=== PATIENT | male | born 1940 | race Caucasian/White ===

== ENCOUNTER → 2023-10-23 06:09 | Day surgery (SDC) | payer OTHER, SELFPAY | LOC: GI 06:09 | PROVIDERS: ATTENDING PHYSICIAN Specialist | DX: Z12.11 Encounter for screening for malignant neoplasm of colon (principal); D12.3 Benign neoplasm of transverse colon; K57.30 Diverticulosis of large intestine without perforation or abscess without bleeding; K64.8 Other hemorrhoids; K29.50 Unspecified chronic gastritis without bleeding; K22.89 Other specified disease of esophagus; K29.40 Chronic atrophic gastritis without bleeding; K31.A0 Gastric intestinal metaplasia, unspecified; K31.89 Other diseases of stomach and duodenum; Z86.010 Personal history of colon polyps; Z87.19 Personal history of other diseases of the digestive system | CPT/HCPCS: 45385; 43239; 88305; 88341; 88342 ==

== ENCOUNTER → 2024-02-02 11:58 | Outpatient (REF) | payer OTHER, SELFPAY | LOC: HWRAD 11:58 | PROVIDERS: ATTENDING PHYSICIAN Nurse Practitioner Family | DX: R05.3 Chronic cough (principal) | CPT/HCPCS: 71046 ==

== ENCOUNTER → 2024-02-19 09:08 | Outpatient (REF) | payer OTHER, SELFPAY ==
[2024-02-19 09:35] VITALS: BP 177/86; BP_SYST 88
[2024-02-19 11:22] LABS: Body Fluid Glucose 90 mg/dl; Body Fluid LDH 317 U/L; Body Fluid Protein 4.6 g/dl
[2024-02-19 12:44] LABS: Body Fluid Mononuclear 98.8 %; Body Fluid Polymorphonuclear 1.2 %; Body Fluid WBC 9939 /CUMM
[2024-02-19 13:36] LABS: Body Fluid Second Tech BP
== END ==
LOC: RADI 09:08
PROVIDERS: ATTENDING PHYSICIAN Internal Medicine Critical Care Medicine; FAMILY PHYSICIAN Internal Medicine
DX: C90.00 Multiple myeloma not having achieved remission (principal); J91.0 Malignant pleural effusion
CPT/HCPCS: 88305; 32555; 71045; 82945; 83615; 84157; 87015; 87070; 87102; 87116; 87205; 87206; 88112; 89051

== ENCOUNTER → 2024-02-24 12:10 | Outpatient (REF) | payer OTHER, SELFPAY | LOC: HWRAD 12:10 | PROVIDERS: ATTENDING PHYSICIAN Internal Medicine Critical Care Medicine; FAMILY PHYSICIAN Internal Medicine | DX: J90 Pleural effusion, not elsewhere classified (principal) | CPT/HCPCS: 71046 ==

== ENCOUNTER → 2024-03-02 12:21 | Outpatient (REF) | payer OTHER, SELFPAY | LOC: HWRAD 12:21 | PROVIDERS: ATTENDING PHYSICIAN Internal Medicine Critical Care Medicine; FAMILY PHYSICIAN Internal Medicine | DX: C91.10 Chronic lymphocytic leukemia of B-cell type not having achieved remission (principal); Z98.890 Other specified postprocedural states; J90 Pleural effusion, not elsewhere classified | CPT/HCPCS: 71046 ==

== ENCOUNTER → 2024-03-23 09:25 | Outpatient (REF) | payer OTHER, SELFPAY | LOC: HWRAD 09:25 | PROVIDERS: ATTENDING PHYSICIAN Internal Medicine Hematology & Oncology; FAMILY PHYSICIAN Internal Medicine; REFERRING PHYSICIAN Internal Medicine Critical Care Medicine | DX: C91.10 Chronic lymphocytic leukemia of B-cell type not having achieved remission (principal); D51.0 Vitamin B12 deficiency anemia due to intrinsic factor deficiency | CPT/HCPCS: 71260; 74177; Q9967 ==

== ENCOUNTER → 2024-05-25 11:29 | Outpatient (REF) | payer OTHER, SELFPAY | LOC: HWRAD 11:29 | PROVIDERS: ATTENDING PHYSICIAN Nurse Practitioner Family | DX: Z87.09 Personal history of other diseases of the respiratory system (principal) | CPT/HCPCS: 71046 ==

== ENCOUNTER → 2024-05-26 12:30 | Outpatient (REF) | payer OTHER, SELFPAY ==
[2024-05-26 12:54] VITALS: BP 134/70; BP_SYST 116
[2024-05-26 14:04] VITALS: BP 136/65
== END ==
LOC: RADI 12:30
PROVIDERS: ATTENDING PHYSICIAN Internal Medicine Critical Care Medicine; FAMILY PHYSICIAN Internal Medicine
DX: J90 Pleural effusion, not elsewhere classified (principal)
CPT/HCPCS: 88305; 32555; 71045; 87015; 87070; 87102; 87116; 87205; 87206; 88112

== ENCOUNTER 2024-05-27 14:56 | Inpatient (IN) | payer OTHER, SELFPAY ==
[2024-05-27] VITALS (19 sets, daily range): BP systolic 89–172; BP diastolic 53–89; BMI 22.1; BMI 22.0
--- NOTE | 2024-05-27 11:28 | ED.GENMED ---
History of Present Illness
General
Chief Complaint: Breathing Problem
Source: patient
Exam Limitations: none
Time Seen by Provider: 05/27/24 09:51
Nursing documentation reviewed up to this point in time: agreed with
History of Present Illness
History of Present Illness:
Patient with history of CLL, currently receiving treatment via [facility], presents to ED secondary to continued shortness of breath with intermittent cough recently. Patient has similar episode in February 2024 when he received a
thoracentesis secondary to pleural effusion which revealed 'CLL cells', without any other abnormalities. At the recommendation of his primary care physician due to his ongoing symptoms, chest x-ray was performed yesterday which revealed a recurrent
large pleural effusion. Patient was evaluated by interventional radiologist yesterday where he received another thoracentesis. However, due to 'thickness of fluids', only small amount of fluid was able to be removed. Patient states that he has
not received any relief in terms of his shortness of breath. Denies fever or chills. Denies nausea, vomiting, or diarrhea. Denies leg pain or swelling. Denies back pain.
Review of Systems
Review of Systems
Allergies reviewed?: Yes
All Other Systems: ROS reviewed and negative except as documented in HPI and ROS
Constitutional: Reports no symptoms; Denies fever
EENT: Reports no symptoms
Respiratory: Reports cough and trouble breathing
Cardiac: Reports no symptoms; Denies chest pain
ABD/GI: Reports no symptoms
Musculoskeletal: Reports no symptoms
Skin: Reports no symptoms
Neurological: Reports no symptoms
Phy Exam
Physical Exam
Physical Exam:
Physical Exam
General: no apparent distress, not acutely ill. afebrile
Head: nc/at. eomi
Neck: supple. no meningeal signs.
Heart: s1/s2 regular rate and rhythm, no murmur. equal radial pulses.
Lungs: no acute respiratory distress. clear bilaterally, but diminished breath sound noted over left lower base
Abdomen: normal bowel sounds. not tender.
Neuro: alert and oriented. no focal neurological deficits
Skin: no rash
Psychiatric: well kept. interactive and cooperative
Extremities: no edema. no calf tenderness.
Scores
Heart Failure Risk
Heart Failure Risk Score: Not Applicable
Course
Orders/Labs/Results
Orders:
Orders
05/27/24 12:22
Complete Blood Count/With Diff Urgent
Comprehensive Metabolic Panel Urgent
05/27/24 14:28
Consult Interventional Radiology [IRAD CONSULT] Routine
Consulting Provider: Pancho Wright
Was physician already notified: Yes
Reason for Consult/Procedure: L chest tube insertion
Acknowledgement that appropriate orders are entered: Yes
05/27/24 14:30
Admit/Transfer Patient As Directed
Co-Sign Provider:
Level of Care: Inpatient admission
Assign to:: Medical/Surgical
Physician / Group: oliva renner
Diagnosis: Malignant L pleural effusion
Reason for Hospitalization: Malignant L pleural effusion
Expected length of stay greater than two midnights?: Yes
ELOS- Estimated Length of Stay in days: 2
I certify the patient meets the requirements for IP care: Yes
PULMONARY CONSULT Routine
Consulting Provider: Faiza León
Was physician already notified: Yes
PRN Pain Medication Management As Directed
May give lesser potent ordered pain med per pt: Yes
preference::
Protocol:: Medication orders for pain may be administered in a
manner that supports deferring to patient preference
when the pt is:
- Requesting an ordered lesser potent pain medication.
Least to most potent pain medications are defined
as: acetaminophen < NSAID < tramadol < opioids
(morphine, oxycodone, hydromorphone).
- Requesting a lesser dose of the same medication IF
ORDERED.
- Requesting a less intrusive route of administration
if both routes are prescribed by the provider (PO <
IV).
05/27/24 14:32
Code Status As Directed
Resuscitation Status: Full Code
05/27/24 Dinner
Regular
At Your Request: Full Participation
Does patient need a safe tray?: No
05/27/24 17:35
Acetaminophen [Tylenol] 650 mg PO Q4HPRN PRN
Bisacodyl [Dulcolax] 10 mg RECTAL [id number] PRN
Mag Hydrox/Al Hydrox/Simeth [Maalox] 30 ml PO Q6HPRN PRN
Oxycodone [Roxicodone] 5 mg PO Q4HPRN PRN
Polyethylene Glycol Powder [Miralax] 17 grams PO DAILYPRN PRN
05/27/24 17:35
ONCOLOGY CONSULT Routine
Consulting Provider: Buster Domingo
Was physician already notified: Yes
Activity As Directed
Activity Level: Ambulate
Vital Signs As Directed
Frequency: Per unit guidelines
DX Deep Vein Thrombosis Video Routine
05/27/24 18:00
Enoxaparin Sodium [Lovenox] 40 mg SC QPM
05/27/24 20:00
zanubrutinib [Brukinsa] 160 mg PO BID
05/27/24 22:00
Atorvastatin [Lipitor] 10 mg PO HS
Levothyroxine [Synthroid] 125 mcg PO HS
Metoprolol [Lopressor] 25 mg PO HS
Tamsulosin [Flomax] 0.4 mg PO HS
05/28/24 06:14
Basic Metabolic Panel IN AM
Complete Blood Count/No Diff IN AM
Ferritin IN AM
Iron IN AM
Total Iron Binding IN AM
Vitamin B12 IN AM
05/28/24 08:00
Azithromycin [Zithromax] 250 mg PO DAILY
Abnormal Lab Results
05/27/24
12:22
WBC 82.5 H* 10^3/uL
(4.8-10.8)
RBC 3.52 L 10^6/uL
(4.70-6.10)
Hgb 8.0 L g/dL
(13.0-18.0)
Hct 27.3 L %
(39.0-52.0)
MCV 77.6 L fL
(80.0-94.0)
MCH 22.7 L pg
(27.0-31.0)
MCHC 29.3 L g/dL
(33.0-37.0)
RDW 17.2 H %
(11.5-14.5)
Plt Count 408 H 10^3/uL
(130-400)
Abs Immat Gran (auto) 0.1 H 10^3/uL
(0-0.05)
Absolute Lymphs (auto) 76.1 H 10^3/uL
(1.2-3.4)
Absolute Monos (auto) 1.0 H 10^3/uL
(0.1-0.6)
Neutrophils % 6.1 L %
(42.2-75.2)
Lymphocytes % 92.3 H %
(20.5-51.1)
Monocytes % 1.2 L %
(1.7-9.3)
Sodium 132 L mmol/L
(135-145)
Chloride 93 L mmol/L
(98-107)
BUN 21 H mg/dl
(9-20)
05/27/24 12:22
05/27/24 12:22
Vital Signs
Initial and Last Documented VS:
Initial Vital Signs
Temp Pulse Resp BP Pulse Ox
98.9 F 96 22 172/78 96
05/27/24 09:25 05/27/24 09:25 05/27/24 09:25 05/27/24 09:25 05/27/24 09:25
Last Documented Vital Signs
Temp Pulse Resp BP Pulse Ox
98.7 F 96 16 127/74 95
05/28/24 07:05 05/28/24 07:05 05/28/24 07:05 05/28/24 07:05 05/28/24 07:05
MDM/Problems Addressed
MDM/Problems Addressed:
Discussed patient's presentation along with IRAD finding from yesterday discussed with oncall assistant center manager () - recommends admission for further treatment, likely requiring chest tube or other invasive treatment to treatment large pleural
effusion.
*Critical Care Note
Total Time (30-74mins, 75-104mins- exclusive of procedures): Not Applicable
ED Attending Note
-
Portions of this chart may have been created with voice recognition software.� Occasional wrong word or��sound alike� substitutions may have occurred due to the inherent limitations of voice recognition software.
Discharge Plan
Departure
Patient Disposition: Admit
Date of Disposition: 05/27/24
Time of Disposition: 14:14
Presentation/result/management discussed w/ accepting MD/DO: Hospitalist
Discharge Problem:
THOMAS (dyspnea on exertion), Pleural effusion
Interventions
Interventions:
*Risk Screen - Suicide Last Done: 05/27/24 09:25
*General Assessment Last Done: 05/27/24 09:25
*Neglect/Abuse Screening Last Done: 05/27/24 09:25
ED- Fall Risk Assessment Last Done: 05/27/24 09:50
*ED COVID-19 Vaccine History Last Done: 05/27/24 09:39
*Nursing Disposition Last Done: 05/27/24 14:54
ED- Cardiac Assessment Last Done: 05/27/24 09:50
ED- Pulmonary Assessment Last Done: 05/27/24 09:50
Discharge Date and Time
Discharge Date/Time: 05/27/24 14:54
[2024-05-27 12:56] LABS: Hematocrit 27.3 % (39.0-52.0); Mean Corp Hgb Conc. 29.3 g/dL (33.0-37.0); Mean Corpuscular Hgb 22.7 pg (27.0-31.0); Mean Corpuscular Volume 77.6 fL (80.0-94.0); Mean Platelet Volume 9.9 fL (7.4-10.4); Platelet Count 408 10^3/uL (130-400); Red Blood Cell Count 3.52 10^6/uL (4.70-6.10); Red Cell Dist. Width 17.2 % (11.5-14.5); White Blood Cell Count 82.5 10^3/uL (4.8-10.8)
[2024-05-27 13:02] LABS: ALT (SGPT) 26 U/L (0-50); AST (SGOT) 33 U/L (17-59); Alkaline Phosphatase 104 U/L (38-126); Blood Urea Nitrogen 21 mg/dl (9-20); Calcium 9.9 mg/dl (8.4-10.2); Carbon Dioxide 25 mmol/L (22-30); Chloride 93 mmol/L (98-107); Estimated Creatinine Clearance 72 ml/min; Glucose 99 mg/dl (70-99); Potassium 4.2 mmol/L (3.5-5.1); Sodium 132 mmol/L (135-145); Total Bilirubin 0.6 mg/dl (0.2-1.3); Total Protein 6.5 g/dl (6.3-8.2); eGFR > 60.00
--- NOTE | 2024-05-27 13:58 | HPS.HSE ---
Family Physician
-
Family Physician: Joe Oneill
Chief Complaint
-
Shortness of breath
History of Present Illness
83-year-old male with a past medical history of malignant left pleural effusion, chronic lymphocytic leukemia, restrictive lung disease, gastroesophageal reflux disease, Ordonez's esophagus, hiatal hernia, mitral valve prolapse, hypertension,
hyperlipidemia, and constipation presents with 1-2-week history of worsening shortness of breath due to his malignant left pleural effusion. Patient had an outpatient left thoracentesis 05/26/2024, draining 100 cc. Ultrasound shows that he has a
subacute to chronic hemothorax that is septated and requires a chest tube. Patient had a left thoracentesis on 02/19/2024 draining 1275 cc of fluid. He reports left-sided chest tightness, and coughing. He also is having fever. No vomiting, no
diarrhea. He has constipation. No black or bloody stools.
Medical History
Past Medical History
Past Medical History: Reports Other (Malignant left pleural effusion, chronic lymphocytic leukemia, cough variant asthma, restrictive lung disease, gastroesophageal reflux disease, Ordonez's esophagus, hiatal hernia, mitral valve prolapse,
hypertension, hyperlipidemia, constipation, vitamin B12 deficiency, diverticulosis,osteoarthritis)
Past Surgical History: Reports Other (Bilateral hip replacement, left shoulder replacement, hernia repair, hemorrhoid surgery, arthroscopic knee surgery, hemorrhoid surgery)
Social History
Tobacco: Non-smoker
Alcohol: Daily
Drug: None
Personal:
Living: With Family
Family History
Family History: Other (Mother had ovarian cancer, sibling has Parkinson's disease)
Allergies / Home Medications
Allergies reflects when Allergies were last updated in [facility].
Home Medications with original date entered in [facility]
Allergy/Medication List:
Allergies
Allergy/AdvReac Type Severity Reaction Status Date / Time
Sulfa (Sulfonamide Allergy Swelling Verified 05/27/24 09:29
Antibiotics)
sulfamethoxazole Allergy Swelling Verified 05/27/24 09:29
Home Medications Table - record
�Medication �Instructions �Recorded �Confirmed
atorvastatin 10 mg tablet 10 mg PO HS 05/27/21 05/27/24
levothyroxine 125 mcg tablet 125 mcg PO HS 05/27/21 05/27/24
omeprazole 20 mg delayed 20 mg PO HS 05/27/21 05/27/24
release,disintegrating tablet
tamsulosin 0.4 mg capsule 0.4 mg PO HS 05/27/21 05/27/24
zanubrutinib 80 mg capsule 160 mg PO BID 05/26/24 05/27/24
(Brukinsa)
azithromycin 250 mg tablet 0 mg PO .COMPLEX 05/27/24 05/27/24
(Zithromax Z-Dale)
metoprolol tartrate 25 mg tablet 25 mg PO HS 05/27/24 05/27/24
psyllium husk 0.4 gram capsule 0.4 g PO HSPRN PRN constipation 05/27/24 05/27/24
(Metamucil)
vitamins A,C,L-edbq-hdrqgl 4,296 1 cap PO HS 05/27/24 05/27/24
mcg-226 mg-90 mg capsule
(PreserVision AREDS)
Review of Systems
-
A 12 point ROS was completed and negative except as noted: Yes
Physical Exam
Vital Signs
Vital Signs
Temp Pulse Resp BP Pulse Ox
98.9 F 87 23 148/71 96
05/27/24 09:25 05/27/24 13:30 05/27/24 13:30 05/27/24 13:00 05/27/24 13:30
Physical Exam
General: Well Developed, Well Nourished and No Apparent Distress
HEENT: NormoCephalic, Anicteric and Moist mucous membranes
Respiratory: Other (Severely diminished breath sounds at the left lung base, right basilar crackles)
Cardiac: S1/S2
GI: Soft, Non Tender, Non Distended and Normal Bowel Sounds
Musculoskeletal: No Clubbing, No Cyanosis and No Edema
Laboratory Results
-
05/27/24 12:22
05/27/24 12:22
Laboratory Results
Total Bilirubin 0.6 mg/dl (0.2-1.3) 05/27/24 12:
AST 33 U/L (17-59) 05/27/24 12:22
ALT 26 U/L (0-50) 05/27/24 12:22
Alkaline Phosphatase 104 U/L (38-126) 05/27/24 12:22
Impression/Plan
-
HPI: 83-year-old male with a past medical history of malignant left pleural effusion, chronic lymphocytic leukemia, restrictive lung disease, gastroesophageal reflux disease, Ordonez's esophagus, hiatal hernia, mitral valve prolapse, hypertension,
hyperlipidemia, and constipation presents with 1-2-week history of worsening shortness of breath due to his malignant left pleural effusion. Patient had an outpatient left thoracentesis 05/26/2024, draining 100 cc. Ultrasound shows that he has a
subacute to chronic hemothorax that is septated and requires a chest tube. Patient had a left thoracentesis on 02/19/2024 draining 1275 cc of fluid. He reports left-sided chest tightness, and coughing. He also is having fever. No vomiting, no
diarrhea. He has constipation. No black or bloody stools.
#Malignant left pleural effusion
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
02/19/2024�left thoracentesis 1275 cc drained
05/26/24-left thoracentesis 100 cc drained
Consult pulmonology, consult IR for chest tube insertion
#Chronic lymphocytic leukemia
Consult oncology
Continue Brukinsa
#Reported fever at home
He has 2 days left of azithromycin
Trend white count and fever curve
#Microcytic anemia
Check iron studies, B12/folate
Trend hemoglobin
#Hypothyroidism
Continue levothyroxine
#Constipation
Continue Metamucil, added MiraLAX as needed
#GERD
#Hiatal hernia
Continue PPI
#BPH
Continue Flomax
DVT prophylaxis�subcu Lovenox
Full code
Total time spent to see the patient on the floor, examine the patient, review data and lab results, discuss treatment plan with patient, nursing staff around 79 minutes.
[2024-05-27 14:23] LABS: % Basophils 0.1 % (0-2); % Eosinophils 0.1 % (0-6); % Immature Granulocytes 0.2 % (0-0.5); % Lymphocytes 92.3 % (20.5-51.1); % Monocytes 1.2 % (1.7-9.3); % Neutrophils 6.1 % (42.2-75.2); Absolute Basophils 0.1 10^3/uL (0-0.2); Absolute Eosinophils 0.1 10^3/uL (0-0.7); Absolute Immature Granulocytes 0.1 10^3/uL (0-0.05); Absolute Lymphocytes 76.1 10^3/uL (1.2-3.4); Absolute Neutrophils 5.1 10^3/uL (1.4-6.5); Nucleated Red Blood Cells % 0 % (-)
--- NOTE | 2024-05-27 15:27 | CON.PUL ---
Consultation
Consultation Request
Date/Time Consultation Requested: 05/27/24
Date/Time Consultation Performed: 05/27/24
Performing Provider: Romelia
Reason for Consultation: Effusion
Medical History
-
History of Present Illness:
Patient is a 83-year-old male with a past medical history of CLL, chronic malignant left-sided pleural effusion, restrictive lung disease, GERD/Ordonez's esophagus, hypertension, hyperlipidemia, presenting with 1-2 week history of worsening
shortness of breath due to his malignant left pleural effusion. Patient had an outpatient left thoracentesis 05/26/2024, and drained 100 cc that was thick and bloody, difficult to extract. Ultrasound showing subacute to chronic hemothorax that is
septated and requires a chest tube. Patient had a left thoracentesis on 02/19/2024 which drained 1275 cc of fluid, this was positive for CLL. He reports left-sided chest tightness, cough, fever. Admitted to 05/27/24.
Past Medical History
Past Medical History: Other (see list below)
Social History
Tobacco: Non-smoker
Alcohol: None
Drug: None
Family History
Family History: Reviewed & Not Pertinent
Allergies / Home Medications
Allergies
Allergy/AdvReac Type Severity Reaction Status Date / Time
Sulfa (Sulfonamide Allergy Swelling Verified 05/27/24 09:29
Antibiotics)
sulfamethoxazole Allergy Swelling Verified 05/27/24 09:29
Home Medications
�Medication �Instructions �Recorded �Confirmed �Last Taken �Type
atorvastatin 10 mg tablet 10 mg PO 05/27/21 05/27/24 05/26/24 History
levothyroxine 125 mcg tablet 125 mcg PO 05/27/21 05/27/24 05/26/24 History
omeprazole 20 mg delayed 20 mg PO 05/27/21 05/27/24 05/26/24 History
release,disintegrating tablet
tamsulosin 0.4 mg capsule 0.4 mg PO 05/27/21 05/27/24 05/26/24 History
zanubrutinib 80 mg capsule 160 mg PO BID 05/26/24 05/27/24 05/27/24 History
(Brukinsa)
azithromycin 250 mg tablet 0 mg PO .COMPLEX 05/27/24 05/27/24 05/27/24 History
(Zithromax Z-Dale)
metoprolol tartrate 25 mg tablet 25 mg PO HS 05/27/24 05/27/24 05/26/24 History
psyllium husk 0.4 gram capsule 0.4 g PO HSPRN PRN constipation 05/27/24 05/27/24 Unknown History
(Metamucil)
vitamins A,C,Y-qtlm-tejnfk 4,296 1 cap PO HS 05/27/24 05/27/24 05/26/24 History
mcg-226 mg-90 mg capsule
(PreserVision AREDS)
Review of Systems
-
History Source: Patient and Physician
Vitals / Labs / Diagnostic Testing
Vital Signs
Temp Pulse Resp BP Pulse Ox
98.1 F 92 22 138/89 97
05/27/24 15:05 05/27/24 15:05 05/27/24 15:05 05/27/24 15:05 05/27/24 15:05
Lab Data
05/27/24 12:22
05/27/24 12:22
Diagnostic Testing:
Physical Exam
-
HEENT: Normocephalic, Anicteric and Moist Mucous Membranes
Cardiovascular: S1/S2 and Regular Rhythm
Respiratory: Clear, Non-Labored Respirations and Other (chest tube in place)
GI: Soft and Non Distended
Neurology: Awake, Alert, Oriented, AO x 3 and No Motor Deficits
Skin: Warm, Dry and Good Color
General: Comfortable and Other (NAD)
Assessment
-
Patient is a 83-year-old male with a past medical history of CLL, chronic malignant left-sided pleural effusion, restrictive lung disease, GERD/Ordonez's esophagus, hypertension, hyperlipidemia, presenting with 1-2 week history of worsening
shortness of breath due to his malignant left pleural effusion. Patient had an outpatient left thoracentesis 05/26/2024, and drained 100 cc that was thick and bloody, difficult to extract. Ultrasound showing subacute to chronic hemothorax that is
septated and requires a chest tube. We are consulted for eval.
L sided pleural effusion s/p successful ultrasound-guided LEFT thoracentesis, yielding 100 mL of sanguinous pleural fluid 05/26/24
s/p chest tube placement by IR with lytic therapy 05/27/24
Hemorrhagic effusion
Acute blood loss anemia from above
SOB
Conditions present prior to admission
Chronic left-sided malignant pleural effusion s/p thora + cyto 02/2024
Chronic cough, cough variant asthma
Follows Dr. Rhodes
Allergic rhinitis, IgE 329/skin testing+grass
Restrictive lung disease
GERD
Diastolic dysfunction
MVP
Hypertension
Hypothyroidism
CLL
Plan
No oxygen was needed on admission, currently saturating 97% on RA
Prior history of lung disease is noted including chronic left sided malignant effusion
s/p thora in February with confirmed cyto for CLL, consistent with his history
s/p thora 05/26 which was thick/bloody, only 100mL extracted
now s/p chest tube placement by IR 05/27/24, (40cc extracted) -- will send fluid studies to r/o infection
Ok to try lytic therapy as well, discussed case with IR
Hb drop from 13 to 8
Observe CBC for anemia, repeat testing later this PM, transfuse if needed
If not improving, may need CTS opinion on options
Most surgical options will be high risk
I discussed this all with patient
CXR/CT obtained indicating chronic L sided effusion
Other imaging reviewed--CT CHEST 03/2024 with complex effusion
Will repeat imaging while inpatient post chest tube insertion to evaluate lung tissue upon drainage
RLD noted, on PFTs
Likely from pleural disease
IS, PT/OT
Prior ECHO results are reviewed indicating stable function
MVP noted with mild MR
Will need outpatient pulmonary evaluation in our office for PFTs and 6MWT
Follows Dr Rhodes
We will follow
Diagnostic Data
Chest X-Ray: 05/26/24- No pneumothorax, post left thoracentesis.
05/25/24- Moderate to large left pleural effusion, significantly increased.
CT Scan: CAP 03/23/24- 1. Small to moderate left pleural effusion with associated mild compressive left lower lobe atelectasis.
2. Pleural-based consolidation in the lingula anteriorly. This likely represents rounded atelectasis, less likely pleural metastatic disease. Recommend attention on follow-up exams.
3. Small right middle lobe perifissural nodule measuring 5 mm, likely benign. Recommend attention on follow-up exams. Of note this nodule is below PET imaging resolution.
4. Mildly enlarged bilateral axillary lymph nodes may reflect lymphoma.
5. Small 0.8 cm nodule within the right anterior subdiaphragmatic region, favored benign. Recommend attention on follow-up exams.
6. Hypoattenuating lesions within the proximal aspects of the bilateral inguinal canals as described. Differential includes spermatic cord hydrocele/cysts, ectopic testes, or necrotic lymph nodes. Consider initial further workup with dedicated
bilateral inguinal/scrotal ultrasound.
6. Otherwise, no convincing evidence for additional metastatic disease in the chest, abdomen or pelvis.
Echo: 03/14/20- 1. Normal left ventricular size and systolic function, ejection fraction 60-65%
2. Mild mitral regurgitation with normal left atrium
3. Normal aortic valve
4. Normal right heart with normal pulmonary artery pressure.
In 2014, there was mild posterior leaflet prolapse and mild LVH. The patient will be called and told that the study is stable with normal heart muscle function and no significant valvular abnormality.
PFT's:
Reports and relevant images were personally reviewed.
Total time spent on this consultation __85__ includes review of history, physical exam, medications, laboratory data, personal review of imaging, extensive review of outpatient records, discussion with care team and respiratory therapy.
--- NOTE | 2024-05-27 16:57 | PN.IRAD.UPD ---
Update Note - IRAD
- -
INSTILLED TPA/DORNASE INTO LEFT SIDED CHEST TUBE AT 1650 POST TUBE INSERTION IN DEPARTMENT. INSTRUCTED PATIENT TO CHANGE POSITIONS EVERY THIRTY MINUTES TO EVENLY DISTRUBUTE MEDS. TUBE CAN BE UNCLAMPED AND PUT BACK TO SUCTION IN TWO HOURS, AT 1850.
NO COMPLAINTS FROM PATIENT
[2024-05-27 17:15] LABS: Body Fluid WBC 30120 /CUMM
[2024-05-27 17:16] LABS: Body Fluid Mononuclear 79.8 %; Body Fluid Polymorphonuclear 20.2 %
[2024-05-27 17:20] LABS: Body Fluid Hematocrit 23.3 %
[2024-05-27 17:32] LABS: Body Fluid Second Tech LD
[2024-05-27] MEDS: LOVENOX 40 MG SC (18:32)
--- NOTE | 2024-05-27 19:11 | PTCARENOTE ---
Addendum entered by John Rahman RN 05/27/24 19:12:
1900 Chest tube unclamped.
Original Note:
10100 Chest tube unclamped per order Draining bloody drainage. No distress noted.
[2024-05-27 20:11] LABS: Hematocrit 26.2 % (39.0-52.0); Hemoglobin 8.1 g/dL (13.0-18.0); Mean Corp Hgb Conc. 30.9 g/dL (33.0-37.0); Mean Corpuscular Hgb 24.1 pg (27.0-31.0); Mean Platelet Volume 9.9 fL (7.4-10.4); Platelet Count 346 10^3/uL (130-400); Red Blood Cell Count 3.36 10^6/uL (4.70-6.10); Red Cell Dist. Width 16.9 % (11.5-14.5); White Blood Cell Count 66.5 10^3/uL (4.8-10.8)
[2024-05-27] MEDS: TYLENOL 650 MG PO (21:45)
[2024-05-27] MEDS: FLOMAX 0.4 MG PO (21:46)
[2024-05-27] MEDS: SYNTHROID 125 MCG PO (21:47)
[2024-05-27] MEDS: PROTONIX 40 MG PO (21:47)
[2024-05-27] MEDS: OCUVITE SOFTGEL 1 CAP PO (21:47)
[2024-05-27] MEDS: LOPRESSOR 25 MG PO (21:49)
[2024-05-27] MEDS: LIPITOR 10 MG PO (21:49)
[2024-05-27] MEDS: ULTRAM 25 MG PO (23:25)
[2024-05-28] VITALS (11 sets, daily range): BP systolic 103–153; BP diastolic 22–77; PULSE 66–92
[2024-05-28] MEDS: ZITHROMAX 250 MG PO (08:11)
[2024-05-28 08:33] LABS: Hematocrit 24.8 % (39.0-52.0); Hemoglobin 7.4 g/dL (13.0-18.0); Mean Corp Hgb Conc. 29.8 g/dL (33.0-37.0); Mean Platelet Volume 9.9 fL (7.4-10.4); Platelet Count 365 10^3/uL (130-400); Red Blood Cell Count 3.22 10^6/uL (4.70-6.10); Red Cell Dist. Width 17.1 % (11.5-14.5); White Blood Cell Count 66.1 10^3/uL (4.8-10.8)
[2024-05-28 09:05] LABS: Blood Urea Nitrogen 18 mg/dl (9-20); Calcium 9.7 mg/dl (8.4-10.2); Carbon Dioxide 26 mmol/L (22-30); Chloride 95 mmol/L (98-107); Estimated Creatinine Clearance 79 ml/min; Glucose 90 mg/dl (70-99); Potassium 4.7 mmol/L (3.5-5.1); Sodium 133 mmol/L (135-145); eGFR > 60.00
[2024-05-28 09:15] LABS: Total Iron Binding Capacity 210 ug/dl (261-462)
--- NOTE | 2024-05-28 09:17 | W.PN.HOSP.TC ---
Today's Communication/Plan
-
see bold
Assessment / Plan
Assessment / Plan
HPI: 83-year-old male with a past medical history of malignant left pleural effusion, chronic lymphocytic leukemia, restrictive lung disease, gastroesophageal reflux disease, Ordonez's esophagus, hiatal hernia, mitral valve prolapse, hypertension,
hyperlipidemia, and constipation presents with 1-2-week history of worsening shortness of breath due to his malignant left pleural effusion. Patient had an outpatient left thoracentesis 05/26/2024, draining 100 cc. Ultrasound shows that he has a
subacute to chronic hemothorax that is septated and requires a chest tube. Patient had a left thoracentesis on 02/19/2024 draining 1275 cc of fluid. He reports left-sided chest tightness, and coughing. He also is having fever. No vomiting, no
diarrhea. He has constipation. No black or bloody stools.
#Malignant loculated left pleural effusion
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
Follows with Dr. Rhodes
02/19/2024�left thoracentesis 1275 cc drained
05/26/24-left thoracentesis 100 cc drained
Left chest tube inserted 05/27 by IR
Appreciate pulmonology input, continue chest tube management as per pulmonology and IR
#Chronic lymphocytic leukemia
Oncology consulted, patient follows with Dr. Herrera
Stopped Brukinsa
#Reported fever at home
He has 1 day left of azithromycin
Trend white count and fever curve
#Iron deficiency anemia
#Suspected subacute blood loss in left hemothorax
#Dizziness with standing
Hemoglobin 7.4 today, was 8 upon admission, was 13.4 May 2021
Transfuse 1 unit packed red blood cells today
#Vitamin B12 deficiency
Give IM and start p.o.
#Hypothyroidism
Continue levothyroxine
#Constipation
Continue Metamucil, added MiraLAX as needed
#GERD
#Hiatal hernia
Continue PPI
#BPH
Continue Flomax
DVT prophylaxis�subcu Lovenox
Full code
Updated at bedside 05/28
Total time spent to see the patient on the floor, examine the patient, review data and lab results, discuss treatment plan with patient, nursing staff around 51 minutes.
Physical Exam
General: No acute distress
HEENT: Normocephalic, Atraumatic, EOMI, MMM
Respiratory: Diminished breath sounds at the left lung base, right basilar crackles
Left chest tube in place
Cardiac: Normal S1/S2, Regular Rate and Rhythm
GI: Soft, Nontender, Nondistended, Normal Bowel Sounds
Extremities: No Clubbing, Cyanosis, or Edema
Neuro: Nonfocal/Grossly Intact
Psych: Calm, Cooperative
Anticipated Discharge: > 48 hours
Subjective/Interval History
-
Date of Service: May 28, 2024
Patient reports dizziness and nausea with standing. Shortness of breath improved. Fever, no vomiting.
Objective Data
-
Labs:
Laboratory Results
05/28/24
06:14
WBC 66.1 H*
Hgb 7.4 L
Hct 24.8 L
Plt Count 365
Sodium 133 L
Potassium 4.7
Chloride 95 L
Carbon Dioxide 26
BUN 18
Creatinine 0.7
Glucose 90
Calcium 9.7
Vital Signs:
Vital Signs
Temp Pulse Resp BP Pulse Ox
98.7 F 96 16 127/74 95
05/28/24 07:05 05/28/24 07:05 05/28/24 07:05 05/28/24 07:05 05/28/24 07:05
I&O
05/27/24 05/28/24 05/29/24
06:59 06:59 06:59
Intake Total 220 / 220
Output Total 750 / 750
Balance -530 / -530
[2024-05-28 09:40] LABS: Iron < 20 ug/dl (49-181)
[2024-05-28 09:44] LABS: Vitamin B12 180 pg/ml (239-931)
--- NOTE | 2024-05-28 13:20 | W.PN.PUL3 ---
Today's Communication / Plan
-
Continue with negative suction at -20 cmH2O
CXR in the morning and may need CT chest without contrast versus CTA chest depending on CXR findings and Hb stability
Patient received 1 unit PRBC today � follow-up repeat CBC tonight to assess for appropriate rise in Hb
Pain control
Goal SpO2 >90-94%
Follow-up pleural fluid cultures + cytopathology
Assessment
-
Patient is a 83-year-old male with a past medical history of CLL, chronic malignant left-sided pleural effusion, restrictive lung disease, GERD/Ordonez's esophagus, hypertension, hyperlipidemia, presenting with 1-2 week history of worsening
shortness of breath due to his malignant left pleural effusion. Patient had an outpatient left thoracentesis 05/26/2024, and drained 100 cc that was thick and bloody, difficult to extract. Ultrasound showing subacute to chronic hemothorax that is
septated and requires a chest tube. We are consulted for eval.
Impression:
L sided pleural effusion s/p successful ultrasound-guided LEFT thoracentesis, yielding 100 mL of sanguinous pleural fluid 05/26/24
s/p chest tube placement by IR with lytic therapy 05/27/24
Hemorrhagic effusion (?due to first thoracentesis with vessel hit, as effusion became bloody after 1st thora on 05/26/2024)
Acute blood loss anemia from above
SOB
Conditions present prior to admission
Chronic left-sided malignant pleural effusion s/p thora + cyto (+) on 02/19/2024
Chronic cough, cough variant asthma
Follows Dr. Rhodes
Post-nasal drip
Allergic rhinitis, IgE 329/skin testing+grass
Restrictive lung disease
GERD
Diastolic dysfunction
MVP
Hypertension
Hypothyroidism
CLL
Plan
No oxygen was needed on admission, currently saturating 96% on RA
Prior history of lung disease is noted including chronic left sided malignant effusion
s/p thora in February with confirmed cyto for CLL, consistent with his history
s/p thora 05/26 which was thick/bloody, only 100mL extracted
now s/p chest tube placement by IR 05/27/24, (40cc extracted) - fluid studies sent for cultures + cytopathology
- Fluid from chest tube is very high in WBC with 30,120, which is monocyte predominant and consistent with hemothorax given hematocrit is 23.3%
Ok to try lytic therapy as well, discussed case with IR
Hb drop from 13 to 8
Observe CBC for anemia --> he was TRX 1 U PRBC today --> repeat CBC to assess for appropriate rise in Hb
If not improving, may need CTS opinion on options
Most surgical options will be high risk
I discussed this all with patient
CXR/CT obtained indicating chronic L sided effusion
Other imaging reviewed--CT CHEST 03/2024 with complex effusion
Will repeat imaging while inpatient post chest tube insertion to evaluate lung tissue upon drainage
- Will start with CXR tomorrow AM; depending on results he may need Chest CT to assess if loculated effusions have all been drained, and he may need CTA chest to assess if active bleed if Hb continues to be unstable
- If concern for active bleed persists then consult CT surgery
RLD noted, on PFTs
Likely from pleural disease
IS, PT/OT
Prior ECHO results are reviewed indicating stable function
MVP noted with mild MR
Will need outpatient pulmonary evaluation in our office for PFTs and 6MWT
Follows Dr Rhodes
We will follow
Diagnostic Data
Chest X-Ray: 05/26/24- No pneumothorax, post left thoracentesis.
05/25/24- Moderate to large left pleural effusion, significantly increased.
CT Scan: CAP 03/23/24- 1. Small to moderate left pleural effusion with associated mild compressive left lower lobe atelectasis.
2. Pleural-based consolidation in the lingula anteriorly. This likely represents rounded atelectasis, less likely pleural metastatic disease. Recommend attention on follow-up exams.
3. Small right middle lobe perifissural nodule measuring 5 mm, likely benign. Recommend attention on follow-up exams. Of note this nodule is below PET imaging resolution.
4. Mildly enlarged bilateral axillary lymph nodes may reflect lymphoma.
5. Small 0.8 cm nodule within the right anterior subdiaphragmatic region, favored benign. Recommend attention on follow-up exams.
6. Hypoattenuating lesions within the proximal aspects of the bilateral inguinal canals as described. Differential includes spermatic cord hydrocele/cysts, ectopic testes, or necrotic lymph nodes. Consider initial further workup with dedicated
bilateral inguinal/scrotal ultrasound.
6. Otherwise, no convincing evidence for additional metastatic disease in the chest, abdomen or pelvis.
Echo: 03/14/20- 1. Normal left ventricular size and systolic function, ejection fraction 60-65%
2. Mild mitral regurgitation with normal left atrium
3. Normal aortic valve
4. Normal right heart with normal pulmonary artery pressure.
In 2014, there was mild posterior leaflet prolapse and mild LVH. The patient will be called and told that the study is stable with normal heart muscle function and no significant valvular abnormality.
Reports and relevant images were personally reviewed.
Total time spent today was 35 minutes for this encounter. Time includes reviewing laboratory test/imaging results, reviewing pertinent medical records, obtaining and reviewing medical history, performing an appropriate exam, ordering medications,
tests and procedures. Time also includes documentation of this encounter, coordinating patient care and communicating with other healthcare professionals. Total time does not include separately billed tests performed on this date of service.
Subjective Data
-
Date of Service:
Date of Service: May 28, 2024
Chief Complaint: Pulmonary Follow Up
Subjective:
Patient seen and evaluated today at bedside. He feels well, however still feels short of breath which improved after blood transfusion earlier this afternoon. Chest tube has not been draining well today, with 150 cc output the last 24 hours. No
airleak seen in Pleur-evac. Currently on room air breathing comfortably. He has a slight cough with clear phlegm. He denies chest pain, OROZCO, abdominal pain, nausea, fevers or chills.
Review of Systems
General: Other (Negative unless mentioned above)
Objective Data
Data Reviewed
Vital Signs / I&O / Oxygen:
Vital Signs
Temp Pulse Resp BP Pulse Ox
98.7 F 96 16 127/74 95
05/28/24 07:05 05/28/24 07:05 05/28/24 07:05 05/28/24 07:05 05/28/24 07:05
Intake and Output
05/27/24 05/28/24 05/29/24
06:59 06:59 06:59
Intake Total 220 / 220
Output Total 750 / 750
Balance -530 / -530
SaO2 95
Physical Exam
General: Respiratory Distress (negative) and Comfortable
HEENT: Normocephalic and Anicteric
Cardiovascular: S1-S2 and Peripheral Edema (negative)
Respiratory: Wheeze (negative), Rhonchi (negative), Non-Labored Respirations, Chest Tube (left hemithorax), Other (Diminished breath sounds at left hemithorax at base to middle lung field) and Other (Coarse breath sounds heard bilaterally)
GI: Soft, Non Distended, Non Tender and Normal Bowel Sounds
Neurology: AO x 3 and Tremors (negative)
Skin: Warm, Dry and Jaundice (negative)
Labs/Micro/Reports
Lab Data
05/28/24 06:14
05/28/24 06:14
Microbiology
05/27/24 16:23 Pleural Fluid Gram Stain - Preliminary
--- NOTE | 2024-05-28 16:16 | PTCARENOTE ---
PT told me he was dizzy over night while oob. I did do orthostatic BP, please refer to vitals section for the numbers. PT did go from SBP 129 to 104 associated with dizziness, nausea and needed to sit back down. HG came back to 7.[address] output from last shift 1000 ml. MD was made aware and one unit of PRBC were ordered and given. Post transfusion orthos were fine SBP 130s lying sitting standing.
--- NOTE | 2024-05-28 16:34 | PTCARENOTE ---
When patient sits up and stands up he does alot of coughing. So far this shift he only got out 10 ml of bloody drainage via ct scan
[2024-05-28] MEDS: CYANOCOBALAMIN 1000 MCG IM (17:13)
[2024-05-28] MEDS: LOVENOX 40 MG SC (17:13)
[2024-05-28] MEDS: OCUVITE SOFTGEL 1 CAP PO (20:59)
[2024-05-28] MEDS: BENADRYL 25 MG PO (20:59)
[2024-05-28] MEDS: LOPRESSOR 25 MG PO (21:00)
[2024-05-28] MEDS: TYLENOL 650 MG PO (21:00)
[2024-05-28] MEDS: FLOMAX 0.4 MG PO (21:00)
[2024-05-28] MEDS: LIPITOR 10 MG PO (21:00)
[2024-05-28] MEDS: SYNTHROID 125 MCG PO (21:01)
[2024-05-28] MEDS: PROTONIX 40 MG PO (21:07)
[2024-05-28 22:23] LABS: Hematocrit 24.6 % (39.0-52.0); Hemoglobin 7.7 g/dL (13.0-18.0); Mean Corp Hgb Conc. 31.3 g/dL (33.0-37.0); Mean Corpuscular Hgb 23.3 pg (27.0-31.0); Mean Corpuscular Volume 74.3 fL (80.0-94.0); Mean Platelet Volume 10.2 fL (7.4-10.4); Platelet Count 350 10^3/uL (130-400); Red Blood Cell Count 3.31 10^6/uL (4.70-6.10); Red Cell Dist. Width 16.9 % (11.5-14.5); White Blood Cell Count 69.5 10^3/uL (4.8-10.8)
--- NOTE | 2024-05-28 23:19 | CON.ONC ---
Impression
Impression
With lymphocyte doubling in the past 4 years he remained asymptomatic and w/o significant signs of progression given absence of 'B' symptoms or overtly palpable adenopathy or splenomegaly. Effusions observed as bloody occur @ all stage of CLL and
do not indicated absolute proof of progression/ transformation of disease. FOr discussion with pulmonary /thoraceic surgery for pleurodesis vs pleural tube drainage
Plan
Plan
FOllw counts and recommemdations by CT surgery/ pulmonary
Patient History
History of Present Illness
Fit 83yo WM admitted for therapeutic lysis of adhesion of associated left pleural hemorrhagic effusion. He was first diagnosed with effusion January 2024 following imaging of same in workup of cough. 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
stage 0 CLL diagnosed in w/u of asymptomatic lymphocytosis treated with observation until aforementioned abnormalities evolved. Treatment with BKI therapy intiated 2 months ago with pt stopping same when bloody effusion first noted with initial
thoracentesis in February.
Past-Medical/Surgical History
HYTN/hypothyroid/GERD/BPH
Patient Medication
�Medication �Instructions �Recorded �Confirmed �Last Taken �Type
atorvastatin 10 mg tablet 10 mg PO HS High Cholesterol 05/27/21 05/27/24 05/26/24 History
levothyroxine 125 mcg tablet 125 mcg PO HS Thyroid 05/27/21 05/27/24 05/26/24 History
omeprazole 20 mg delayed 20 mg PO HS Gastrointestinal Issue 05/27/21 05/27/24 05/26/24 History
release,disintegrating tablet
tamsulosin 0.4 mg capsule 0.4 mg PO HS Urinary Issue 05/27/21 05/27/24 05/26/24 History
zanubrutinib 80 mg capsule 160 mg PO BID leukemia 05/26/24 05/27/24 05/27/24 History
(Brukinsa)
azithromycin 250 mg tablet 0 mg PO .COMPLEX Infection 05/27/24 05/27/24 05/27/24 History
(Zithromax Z-Dale)
metoprolol tartrate 25 mg tablet 25 mg PO HS Blood Pressure 05/27/24 05/27/24 05/26/24 History
psyllium husk 0.4 gram capsule 0.4 g PO HSPRN PRN constipation 05/27/24 05/27/24 Unknown History
(Metamucil)
vitamins A,C,D-lnek-lybcrd 4,296 1 cap PO HS Supplement 05/27/24 05/27/24 05/26/24 History
mcg-226 mg-90 mg capsule
(PreserVision AREDS)
diphenhydramine 25 1 tab PO HS PRN sleep 05/28/24 05/28/24 05/25/24 History
mg-acetaminophen 500 mg tablet
(Tylenol PM Extra Strength)
Active Medications
Generic Name Dose Route Start Last Admin
Trade Name Freq PRN Reason Stop Dose Admin
Acetaminophen 650 mg 05/27/24 17:35 05/28/24 21:00
Acetaminophen 325 Mg Tablet PO 06/24/24 17:34 650 mg
Q4HPRN PRN Administration
mild pain/OROZCO/temp> 100.4F
Al Hydrox/Mg Hydrox/Simethicone 30 ml 05/27/24 17:35
Mag/Al/Simethicone Suspension 30 Ml Cup PO 06/24/24 17:34
Q6HPRN PRN
Heartburn
Atorvastatin Calcium 10 mg 05/27/24 22:00 05/28/24 21:00
Atorvastatin (Lipitor) 10 Mg Tablet PO 06/24/24 21:59 10 mg
HS JOY Administration
Azithromycin 250 mg 05/28/24 08:00 05/28/24 08:11
Azithromycin 250 Mg Tablet PO 05/29/24 08:01 250 mg
DAILY JOY Administration
Bisacodyl 10 mg 05/27/24 17:35
Bisacodyl 10 Mg Rectal Suppository RECTAL 06/24/24 17:34
[id number] PRN
constipation
Cyanocobalamin 1,000 mcg 05/29/24 08:00
Cyanocobalamin 1,000 Mcg Tablet PO 06/26/24 07:59
DAILY JOY
Enoxaparin Sodium 40 mg 05/27/24 18:00 05/28/24 17:13
Enoxaparin Sodium 40 Mg/0.4 Ml Syringe SC 06/24/24 17:59 40 mg
QPM JOY Administration
Levothyroxine Sodium 125 mcg 05/27/24 22:00 05/28/24 21:01
Levothyroxine 125 Mcg Tablet PO 06/24/24 21:59 125 mcg
HS JOY Administration
Metoprolol Tartrate 25 mg 05/27/24 22:00 05/28/24 21:00
Metoprolol 25 Mg Regular Release Tablet PO 06/24/24 21:59 25 mg
HS JOY Administration
Non-Formulary Medication 160 mg 05/27/24 20:00
Zanubrutinib [Brukinsa] PO 06/24/24 19:59
BID JOY
Oxycodone HCl 5 mg 05/27/24 17:35
Oxycodone 5 Mg Regular Release Tablet PO 06/10/24 17:34
Q4HPRN PRN
moderate pain
Pantoprazole Sodium 40 mg 05/27/24 22:00 05/28/24 21:07
Pantoprazole 40 Mg Delayed Release Tablet PO 06/24/24 21:59 40 mg
HS JOY Administration
Polyethylene Glycol 17 grams 05/27/24 17:35
Polyethylene Glycol Powder 17 Grams Packet PO 06/24/24 17:34
DAILYPRN PRN
constipation
Psyllium Hydrophilic Mucilloid 1 packet 05/27/24 17:59
Psyllium Packet PO 06/24/24 17:58
HSPRN PRN
constipation
Sodium Chloride 0 flush 05/27/24 23:00
Sodium Chloride 0.9% (Flush) Syringe IV 06/24/24 22:59
PER PROTOCOL JOY
Tamsulosin HCl 0.4 mg 05/27/24 22:00 05/28/24 21:00
Tamsulosin 0.4 Mg Capsule PO 06/24/24 21:59 0.4 mg
HS JOY Administration
Vitamin C/Vitamin E 1 cap 05/27/24 22:00 05/28/24 20:59
Vit C/Vit E/Lutein/Min/[place]-3 (Ocuvite) Capsule PO 06/24/24 21:59 1 cap
HS JOY Administration
Review of Systems
-
History Source: Patient and Family
All Other Systems: Reviewed and Negative
Physical Exam
-
General: Well Developed
HEENT: Moist Mucous Membranes
Cardiology: Normal Sinus Rhythm
Pulmonary: Clear
GI: Soft and Flat
Musculoskeletal: No Clubbing, No Cyanosis and No Edema
Neurology: Non Focal
Psych: Calm
Labs
Lab Results
WBC 69.5 10^3/uL (4.8-10.8) H* 05/28/24 22:14
RBC 3.31 10^6/uL (4.70-6.10) L 05/28/24 22:14
Hgb 7.7 g/dL (13.0-18.0) L 05/28/24 22:14
Hct 24.6 % (39.0-52.0) L 05/28/24 22:14
MCV 74.3 fL (80.0-94.0) L 05/28/24 22:14
MCH 23.3 pg (27.0-31.0) L 05/28/24 22:14
MCHC 31.3 g/dL (33.0-37.0) L 05/28/24 22:14
RDW 16.9 % (11.5-14.5) H 05/28/24 22:14
Plt Count 350 10^3/uL (130-400) 05/28/24 22:14
MPV 10.2 fL (7.4-10.4) 05/28/24 22:14
Abs Immat Gran (auto) 0.1 10^3/uL (0-0.05) H 05/27/24 12:22
Absolute Neuts (auto) 5.1 10^3/uL (1.4-6.5) 05/27/24 12:22
Absolute Lymphs (auto) 76.1 10^3/uL (1.2-3.4) H 05/27/24 12:22
Absolute Monos (auto) 1.0 10^3/uL (0.1-0.6) H 05/27/24 12:22
Absolute Eos (auto) 0.1 10^3/uL (0-0.7) 05/27/24 12:22
Absolute Basos (auto) 0.1 10^3/uL (0-0.2) 05/27/24 12:22
Immature Gran % 0.2 % (0-0.5) 05/27/24 12:22
Neutrophils % 6.1 % (42.2-75.2) L 05/27/24 12:22
Lymphocytes % 92.3 % (20.5-51.1) H 05/27/24 12:22
Monocytes % 1.2 % (1.7-9.3) L 05/27/24 12:22
Eosinophils % 0.1 % (0-6) 05/27/24 12:22
Basophils % 0.1 % (0-2) 05/27/24 12:22
Creatinine 0.7 mg/dL (0.7-1.3) 05/28/24 06:14
Vital Signs
Vital Signs
Temp Pulse Resp BP Pulse Ox
98.0 F 90 14 127/73 97
05/28/24 23:00 05/28/24 23:00 05/28/24 23:00 05/28/24 23:00 05/28/24 23:00
[2024-05-29 07:40] LABS: Hematocrit 26.8 % (39.0-52.0); Hemoglobin 8.4 g/dL (13.0-18.0); Mean Corp Hgb Conc. 31.3 g/dL (33.0-37.0); Mean Corpuscular Hgb 24.4 pg (27.0-31.0); Mean Corpuscular Volume 77.9 fL (80.0-94.0); Mean Platelet Volume 10.2 fL (7.4-10.4); Platelet Count 340 10^3/uL (130-400); Red Blood Cell Count 3.44 10^6/uL (4.70-6.10); Red Cell Dist. Width 17.1 % (11.5-14.5); White Blood Cell Count 65.7 10^3/uL (4.8-10.8)
[2024-05-29 07:45] LABS: Magnesium 2.2 mg/dl (1.6-2.3); Phosphorus 3.1 mg/dl (2.5-4.5)
[2024-05-29 07:48] VITALS: BP 154/76
[2024-05-29] MEDS: ZITHROMAX 250 MG PO (08:04)
[2024-05-29] MEDS: VITAMIN B-12 1000 MCG PO (08:04)
--- NOTE | 2024-05-29 08:52 | W.PN.HOSP.TC ---
Today's Communication/Plan
-
For pleural lysis with tPA/dornase today
Assessment / Plan
Assessment / Plan
HPI: 83-year-old male with a past medical history of malignant left pleural effusion, chronic lymphocytic leukemia, restrictive lung disease, gastroesophageal reflux disease, Ordonez's esophagus, hiatal hernia, mitral valve prolapse, hypertension,
hyperlipidemia, and constipation presents with 1-2-week history of worsening shortness of breath due to his malignant left pleural effusion. Patient had an outpatient left thoracentesis 05/26/2024, draining 100 cc. Ultrasound shows that he has a
subacute to chronic hemothorax that is septated and requires a chest tube. Patient had a left thoracentesis on 02/19/2024 draining 1275 cc of fluid. He reports left-sided chest tightness, and coughing. He also is having fever. No vomiting, no
diarrhea. He has constipation. No black or bloody stools.
#Malignant loculated left pleural effusion
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
Follows with Dr. Rhodes
02/19/2024�left thoracentesis 1275 cc drained
05/26/24-left thoracentesis 100 cc drained
Left chest tube inserted 05/27 by IR
Appreciate pulmonology & IR input, for pleural lysis with tPA/dornase today
Repeat chest x-ray in the a.m., possibly may need chest CT
#Chronic lymphocytic leukemia
Oncology consulted, patient follows with Dr. Herrera
Stopped Brukinsa [employer]
#Reported fever at home
Status post full course of azithromycin
Afebrile here, pleural fluid cultures negative
#Iron deficiency anemia
#Dizziness with standing
Due to subacute blood loss in left hemothorax
Hemoglobin 8.4 today, was 7.4, status post 1 unit packed red blood cells 05/28
Trend hemoglobin, transfuse as needed
#Vitamin B12 deficiency
Status post IM repletion on 05/28
Started on oral repletion
#Hypothyroidism
Continue levothyroxine
#Constipation
Continue Metamucil, added MiraLAX as needed
#GERD
#Hiatal hernia
Continue PPI
#BPH
Continue Flomax
DVT prophylaxis�subcu Lovenox
Full code
Updated at bedside 05/28
Total time spent to see the patient on the floor, examine the patient, review data and lab results, discuss treatment plan with patient, nursing staff around 55 minutes.
Physical Exam
General: No acute distress
HEENT: Normocephalic, Atraumatic, EOMI, MMM
Respiratory: Diminished breath sounds at the left lung base, right basilar crackles
Left chest tube in place
Cardiac: Normal S1/S2, Regular Rate and Rhythm
GI: Soft, Nontender, Nondistended, Normal Bowel Sounds
Extremities: No Clubbing, Cyanosis, or Edema
Neuro: Nonfocal/Grossly Intact
Psych: Calm, Cooperative
Anticipated Discharge: 24 - 48 hours
Subjective/Interval History
-
Date of Service: May 29, 2024
Patient reports dizziness and nausea with standing has resolved. Shortness of breath resolved. No fever, no vomiting.
Objective Data
-
Labs:
Laboratory Results
05/28/24 05/29/24
22:14 05:56
WBC 69.5 H* 65.7 H*
Hgb 7.7 L 8.4 L
Hct 24.6 L 26.8 L
Plt Count 350 340
Vital Signs:
Vital Signs
Temp Pulse Resp BP Pulse Ox
99.2 F 104 16 154/76 95
05/29/24 07:48 05/29/24 07:48 05/29/24 07:48 05/29/24 07:48 05/29/24 07:48
I&O
05/28/24 05/29/24 05/30/24
06:59 06:59 06:59
Intake Total 220 / 220 955 / 955
Output Total 750 / 1650 1650 / 1650
Balance -530 / -1430 -695 / -695
--- NOTE | 2024-05-29 09:34 | W.PN.PUL3 ---
Today's Communication / Plan
-
Plan for chest tube lytic instillation today for 2 doses, and will continue to instill for total of 6 doses
CXR daily
Continue with negative suction at -20 cmH2O
Trend Hb with serial CBC and check CT chest with IV contrast vs CTA chest with CT surgery consult depending on CXR findings and Hb stability
Pain control
Goal SpO2 >90-94%
Follow-up pleural fluid cultures + cytopathology
Assessment
-
Patient is a 83-year-old male with a past medical history of CLL, chronic malignant left-sided pleural effusion, restrictive lung disease, GERD/Ordonez's esophagus, hypertension, hyperlipidemia, presenting with 1-2 week history of worsening
shortness of breath due to his malignant left pleural effusion. Patient had an outpatient left thoracentesis 05/26/2024, and drained 100 cc that was thick and bloody, difficult to extract. Ultrasound showing subacute to chronic hemothorax that is
septated and requires a chest tube. We are consulted for eval.
Impression:
L sided pleural effusion s/p successful ultrasound-guided LEFT thoracentesis, yielding 100 mL of sanguinous pleural fluid 05/26/24
s/p chest tube placement by IR with lytic therapy 05/27/24
Hemorrhagic effusion (?due to first thoracentesis with vessel hit, as effusion became bloody after 1st thora on 05/26/2024 vs malignant effusion)
Acute blood loss anemia from above
SOB
Conditions present prior to admission
Chronic left-sided malignant pleural effusion s/p thora + cyto (+) on 02/19/2024
Chronic cough, cough variant asthma
Follows Dr. Rhodes
Post-nasal drip
Allergic rhinitis, IgE 329/skin testing+grass
Restrictive lung disease
GERD
Diastolic dysfunction
MVP
Hypertension
Hypothyroidism
CLL
Plan
No oxygen was needed on admission, currently saturating 96% on RA
Prior history of lung disease is noted including chronic left sided malignant effusion
s/p thora in February with confirmed cyto for CLL, consistent with his history
s/p thora 05/26 which was thick/bloody, only 100mL extracted
now s/p chest tube placement by IR 05/27/24, (40cc extracted) - fluid studies sent for cultures + cytopathology
- Fluid from chest tube is very high in WBC with 30,120, which is monocyte predominant and consistent with hemothorax given hematocrit is 23.3%
Ok to try lytic therapy as well, discussed case with IR
Hb drop from 13 to 8
Observe CBC for anemia --> he was TRX 1 U PRBC on 05/28 --> Hb now stable. Continue to trend Hb with serial CBC
If not improving, may need CTS opinion on options
Most surgical options will be high risk
Dr. Montemayor discussed this all with patient
CXR/CT obtained indicating chronic L sided effusion
Other imaging reviewed--CT CHEST 03/2024 with complex effusion
Will repeat imaging while inpatient post chest tube insertion to evaluate lung tissue upon drainage
- Considering CXR today shows mild improvement in left-sided loculated pleural effusion and Hb appears stable this morning, I will continue with repeat tPA/dornase instillation. This was also agreed upon by IR, Dr. Wright. Will plan for 6 total
installations and reassess CXR daily. If Hb continues to be unstable, then would check CT chest with IV contrast vs CTA chest with possible CT surgery consultation.
RLD noted, on PFTs
Likely from pleural disease
IS, PT/OT
Prior ECHO results are reviewed indicating stable function
MVP noted with mild MR
Will need outpatient pulmonary evaluation in our office for PFTs and 6MWT
Follow[address] Dr Rhodes
We will follow
Diagnostic Data
CXR 05/29/2024: Moderate loculated left pleural effusion - slightly improved.
Chest X-Ray: 05/26/24- No pneumothorax, post left thoracentesis.
05/25/24- Moderate to large left pleural effusion, significantly increased.
CT Scan: CAP 03/23/24- 1. Small to moderate left pleural effusion with associated mild compressive left lower lobe atelectasis.
2. Pleural-based consolidation in the lingula anteriorly. This likely represents rounded atelectasis, less likely pleural metastatic disease. Recommend attention on follow-up exams.
3. Small right middle lobe perifissural nodule measuring 5 mm, likely benign. Recommend attention on follow-up exams. Of note this nodule is below PET imaging resolution.
4. Mildly enlarged bilateral axillary lymph nodes may reflect lymphoma.
5. Small 0.8 cm nodule within the right anterior subdiaphragmatic region, favored benign. Recommend attention on follow-up exams.
6. Hypoattenuating lesions within the proximal aspects of the bilateral inguinal canals as described. Differential includes spermatic cord hydrocele/cysts, ectopic testes, or necrotic lymph nodes. Consider initial further workup with dedicated
bilateral inguinal/scrotal ultrasound.
6. Otherwise, no convincing evidence for additional metastatic disease in the chest, abdomen or pelvis.
Echo: 03/14/20- 1. Normal left ventricular size and systolic function, ejection fraction 60-65%
2. Mild mitral regurgitation with normal left atrium
3. Normal aortic valve
4. Normal right heart with normal pulmonary artery pressure.
In 2014, there was mild posterior leaflet prolapse and mild LVH. The patient will be called and told that the study is stable with normal heart muscle function and no significant valvular abnormality.
Reports and relevant images were personally reviewed.
Total time spent today was 35 minutes for this encounter. Time includes reviewing laboratory test/imaging results, reviewing pertinent medical records, obtaining and reviewing medical history, performing an appropriate exam, ordering medications,
tests and procedures. Time also includes documentation of this encounter, coordinating patient care and communicating with other healthcare professionals. Total time does not include separately billed tests performed on this date of service.
Subjective Data
-
Date of Service:
Date of Service: May 29, 2024
Chief Complaint: Pulmonary Follow Up
Subjective:
Patient seen and evaluated today at bedside. CXR shows slight improvement in moderate size left loculated pleural effusion. Hb this morning is 8.4. He feels well. Having some coughing with SOB with deep breaths. Otherwise feels comfortable with
breathing at rest. Denies OROZCO, chest pain, abdominal pain, fevers or chills. Left-sided chest tube in place at -20 cm water suction. No output since yesterday.
Review of Systems
General: Other (Negative unless mentioned above)
Objective Data
Data Reviewed
Vital Signs / I&O / Oxygen:
Vital Signs
Temp Pulse Resp BP Pulse Ox
99.2 F 104 16 154/76 95
05/29/24 07:48 05/29/24 07:48 05/29/24 07:48 05/29/24 07:48 05/29/24 07:48
Intake and Output
05/28/24 05/29/24 05/30/24
06:59 06:59 06:59
Intake Total 220 / 220 955 / 955
Output Total 750 / 1650 1650 / 1650
Balance -530 / -1430 -695 / -695
SaO2 95
Physical Exam
General: Respiratory Distress (negative), Comfortable, Chills (negative) and Sweats (negative)
HEENT: Normocephalic and Anicteric
Cardiovascular: S1-S2 and Peripheral Edema (negative)
Respiratory: Wheeze (negative), Rhonchi (negative), Non-Labored Respirations, Chest Tube (left hemithorax), Other (Diminished breath sounds at left hemithorax at base to middle lung field) and Other (Coarse breath sounds heard bilaterally)
GI: Soft, Non Distended, Non Tender and Normal Bowel Sounds
Neurology: AO x 3 and Tremors (negative)
Skin: Warm, Dry and Jaundice (negative)
Labs/Micro/Reports
Lab Data
05/29/24 05:56
05/28/24 06:14
Microbiology
05/27/24 16:23 Pleural Fluid Anaerobic Culture - Preliminary
Culture pending. Anaerobic cultures are examined after 3
days incubation. Additional information to follow.
05/27/24 16:23 Pleural Fluid Body Fluid Culture - Preliminary
No Growth After 48 Hours
05/27/24 16:23 Pleural Fluid Gram Stain - Preliminary
--- NOTE | 2024-05-29 09:47 | W.PN.UPDATE ---
Update Note
Progress Note Update
Discussed patient's abnormal CXR with interventional radiology, Dr. Wright. Low suspicion for active bleeding given the degree of septations seen on initial imaging when thoracentesis was performed/chest tube was placed. We discussed best
management, and we agreed to perform pleural lysis with tPA/dornase. I will perform this today x 2, and then recheck another CXR tomorrow and possibly CT chest if additional chest parenchymal visualization is needed.
--- NOTE | 2024-05-29 12:00 | W.SUR.POST ---
Surgical Immediate Post Op
Note
Chest Tube Lytic Instillation Procedure Note
Date of procedure: 05/29/2024 - 11:30AM
Pre Op Diagnosis: Left sided loculated effusion
Post Op Diagnosis: Same as above
Procedure Performed: Chest tube lytic instillation with tPA and Dornase
Primary Surgeon/Proceduralist: Dr. Wong
Secondary Surgeons: N/A
Anesthesia: N/A
Estimated Blood Loss: None
Fluids: N/A
Drains/Shunts: N/A
Specimens/Cultures: N/A
Doppler/Duplex/Angio (Y/N): N/A
Complications: No immediate complications.
Operative Findings: After verbal consent obtained, patient was positioned into recumbent position so that I could access his chest tube. Chest tube was clamped, and sterile technique was employed using hand washing, sterile gloves, mask and gown.
Chest tube tubing was disconnected so that I could access opening, and normal saline was flushed into chest tube. 10mg of tPA and 5mg of dornase was instilled without incident, and flushed with 10cc of NS 0.9% after each instillation. Alcohol
wipes were used to wipe down the catheter tips and the chest tube tubing site before and after each instillation to maximize sterility. Chest tube was then clamped and is to remain off suction for 90-120 minutes, at which point the chest tube
should be unclamped and then placed back onto suction. Bedside RN assisted with procedure. Patient tolerated procedure without any immediate complications, and I answered all of his questions.
[2024-05-29 12:30] VITALS: BP 151/93
--- NOTE | 2024-05-29 13:45 | PTCARENOTE ---
This nurse was in room when pulmonlology did lysis procedure at bedside. MD administered lytic therapy provided by pharmacy. As per mD i was to unclamp CT and reconnect to suction at 130 pm. Order placed. Spoke to pharmacy and supervisor cook house on how
to clear out the lytic therapy from nursing MAR. Long Distance Operator did recommend to write PN that MD administred the medication, I will document not given as nursing was never intended to get the medication. Tube unclamped as per MD order. currently
draining bloody output with known chronic hemothorax. tidling noted in ct and very few air bubbles noted. pt comfortable.
[2024-05-29 15:22] VITALS: BP 155/78
[2024-05-29 15:35] LABS: Hematocrit 27.6 % (39.0-52.0); Hemoglobin 8.6 g/dL (13.0-18.0); Mean Corp Hgb Conc. 31.2 g/dL (33.0-37.0); Mean Corpuscular Hgb 23.5 pg (27.0-31.0); Mean Corpuscular Volume 75.4 fL (80.0-94.0); Mean Platelet Volume 10.1 fL (7.4-10.4); Platelet Count 370 10^3/uL (130-400); Red Blood Cell Count 3.66 10^6/uL (4.70-6.10); Red Cell Dist. Width 16.9 % (11.5-14.5)
--- NOTE | 2024-05-29 18:24 | W.SUR.POST ---
Surgical Immediate Post Op
Note
Chest Tube Lytic Instillation Procedure Note
Date of procedure: 05/29/2024 - 6:15PM
Pre Op Diagnosis: Left sided loculated effusion
Post Op Diagnosis: Same as above
Procedure Performed: Chest tube lytic instillation with tPA and Dornase
Primary Surgeon/Proceduralist: Dr. Wong
Secondary Surgeons: N/A
Anesthesia: N/A
Estimated Blood Loss: None
Fluids: N/A
Drains/Shunts: N/A
Specimens/Cultures: N/A
Doppler/Duplex/Angio (Y/N): N/A
Complications: No immediate complications.
Operative Findings: After verbal consent obtained, patient was positioned into recumbent position so that I could access his chest tube. Chest tube was clamped, and sterile technique was employed using hand washing, sterile gloves, mask and gown.
Chest tube tubing was disconnected so that I could access opening, and normal saline was flushed into chest tube. 10mg of tPA and 5mg of dornase was instilled without incident, and flushed with 10cc of NS 0.9% after each instillation. Alcohol
wipes were used to wipe down the catheter tips and the chest tube tubing site before and after each instillation to maximize sterility. Chest tube was then clamped and is to remain off suction for 120 minutes, at which point the chest tube should
be unclamped and then placed back onto suction. Bedside RN assisted with procedure. Patient tolerated procedure without any immediate complications, and I answered all of his questions.
[2024-05-29] MEDS: LOVENOX 40 MG SC (18:27)
[2024-05-29 19:00] VITALS: BP 143/77
--- NOTE | 2024-05-29 20:00 | PTCARENOTE ---
Per order chest tube was unclamped at 1999. Drainage was serosanguineous, chest tube remains intact, pt. resting comfortably. Will continue to monitor.
[2024-05-29] MEDS: PROTONIX 40 MG PO (21:16)
[2024-05-29] MEDS: SENOKOT-S 1 TABLET PO (21:16)
[2024-05-29] MEDS: FLOMAX 0.4 MG PO (21:16)
[2024-05-29] MEDS: LOPRESSOR 25 MG PO (21:17)
[2024-05-29] MEDS: OCUVITE SOFTGEL 1 CAP PO (21:17)
[2024-05-29] MEDS: LIPITOR 10 MG PO (21:18)
[2024-05-29] MEDS: SYNTHROID 125 MCG PO (21:18)
[2024-05-29] MEDS: TYLENOL 650 MG PO (21:27)
[2024-05-29] MEDS: BENADRYL 25 MG PO (21:32)
[2024-05-29 23:00] VITALS: BP 125/69
[2024-05-30 06:54] LABS: Blood Urea Nitrogen 22 mg/dl (9-20); Calcium 9.4 mg/dl (8.4-10.2); Carbon Dioxide 28 mmol/L (22-30); Chloride 97 mmol/L (98-107); Estimated Creatinine Clearance 79 ml/min; Glucose 107 mg/dl (70-99); Magnesium 2.1 mg/dl (1.6-2.3); Phosphorus 3.6 mg/dl (2.5-4.5); Potassium 4.4 mmol/L (3.5-5.1); Sodium 134 mmol/L (135-145); eGFR > 60.00
[2024-05-30 07:02] LABS: Hematocrit 28.7 % (39.0-52.0); Hemoglobin 8.7 g/dL (13.0-18.0); Mean Corp Hgb Conc. 30.3 g/dL (33.0-37.0); Mean Corpuscular Hgb 23.7 pg (27.0-31.0); Mean Corpuscular Volume 78.2 fL (80.0-94.0); Platelet Count 343 10^3/uL (130-400); Red Blood Cell Count 3.67 10^6/uL (4.70-6.10); White Blood Cell Count 64.4 10^3/uL (4.8-10.8)
[2024-05-30 07:20] VITALS: BP 133/71
[2024-05-30] MEDS: SENOKOT-S 1 TABLET PO ×2 (08:36→21:04)
[2024-05-30] MEDS: VITAMIN B-12 1000 MCG PO (08:36)
--- NOTE | 2024-05-30 08:50 | W.PN.ONC2 ---
Addendum entered and electronically signed by Kitty Marte MD 05/30/24 22:29:
Hemorrhagic component of pleural effusion is due to Brukinsa.
Does not appear to be responding to treatment, with recurrence of pleural effusion, no apparent change in blood counts since starting. He has been on treatment x 2 months.
Declines to resume Brukinsa.
Discussed possibility of Gazyva/Venclexta.
Requesting outpt second opinion at [facility] although anticipates returning back to our care. We will arrange.
Continue supportive care.
Original Note:
Today's Communication / Plan
-
follow CBC, transfuse prn
hold brukinsa with concern fo hemorrhagic effusion since can contribute to bleeding
check hemolysis panel
parenteral B12 while hospitalized
Impression
Impression
CLL -stable and asymptomatic on observation 2018 until March 2024 then started on Brukinsa due to suspected POD with malignant pleural effusion February 2024 cytology/flow c/w CLL/SLL
recurrent pleural Effusion, s/p thoracentesis 05/26 100cc pleural fluid drained, chest tube placed 05/27 with TPA/dornase installation per pulmonary
anemia, microcytic multifactorial. Iron studies c/w AOCD/inflammation. hemorrhagic pleural effusion. +B12 deficiency on B12 shots with PCP.
restrictive lung dz
GERD
HFpEF
MVP
HTN
Plan
Plan
chest tube and TPA/dornase installation management per pulmonary
follow pleural fluid cytology
anemia, s/p 1unit prbc 05/28. Check hemolysis panel
Subjective/Objective
Chief Complaint
no new complaints
Subjective
afebrile, no hypoxia or hypotension
Vital Signs:
Vital Signs
Temp Pulse Resp BP Pulse Ox
98.2 F 95 16 133/71 96
05/30/24 07:20 05/30/24 07:20 05/30/24 07:20 05/30/24 07:20 05/30/24 07:20
Lab Results:
Laboratory Data
WBC 64.4 10^3/uL (4.8-10.8) H* 05/30/24 06:06
Hgb 8.7 g/dL (13.0-18.0) L 05/30/24 06:06
Plt Count 343 10^3/uL (130-400) 05/30/24 06:06
eGFR > 60.00 05/30/24 06:06
Physical Exam
General: Well Developed
HEENT: Moist Mucous Membranes
Cardiology: Normal Sinus Rhythm
Pulmonary: Clear
GI: Soft
Ext No Edema
Neurology: Non Focal
Psych: Calm
Review of Systems
Review of Systems
ROS notable for subjective, otherwise negative
[2024-05-30] MEDS: CYANOCOBALAMIN 1000 MCG IM (11:42)
--- NOTE | 2024-05-30 11:51 | W.PN.PUL3 ---
Today's Communication / Plan
-
Repeat tPA/dornase alpha today once chest tube is repositioned
Eventual repeat CT of the chest
Follow chest tube output
Follow hemoglobin
Assessment
-
Patient is a 83-year-old male with a past medical history of CLL, chronic malignant left-sided pleural effusion, restrictive lung disease, GERD/Ordonez's esophagus, hypertension, hyperlipidemia, presenting with 1-2 week history of worsening
shortness of breath due to his malignant left pleural effusion. Patient had an outpatient left thoracentesis 05/26/2024, and drained 100 cc that was thick and bloody, difficult to extract. Ultrasound showing subacute to chronic hemothorax that is
septated and requires a chest tube. We are consulted for eval.
Impression:
L sided pleural effusion s/p successful ultrasound-guided LEFT thoracentesis, yielding 100 mL of sanguinous pleural fluid 05/26/24
s/p chest tube placement by IR with lytic therapy 05/27/24
Hemorrhagic effusion (?due to first thoracentesis with vessel hit, as effusion became bloody after 1st thora on 05/26/2024 vs malignant effusion)
Acute blood loss anemia from above
SOB
Conditions present prior to admission
Chronic left-sided malignant pleural effusion s/p thora + cyto (+) on 02/19/2024
Chronic cough, cough variant asthma
Follows Dr. Rhodes
Post-nasal drip
Allergic rhinitis, IgE 329/skin testing+grass
Restrictive lung disease
GERD
Diastolic dysfunction
MVP
Hypertension
Hypothyroidism
CLL
Plan
No overnight events
Respiratory status remains unchanged.
Prior history of lung disease is noted including chronic left sided malignant effusion
s/p thora in February with confirmed cyto for CLL, consistent with his history
s/p thora 05/26 which was thick/bloody, only 100mL extracted
s/p chest tube placement by IR 05/27/24, (40cc extracted) - fluid studies sent for cultures + cytopathology
- Fluid from chest tube is very high in WBC with 30,120, which is monocyte predominant and consistent with hemothorax given hematocrit is 23.3%
hold brukinsa with concern fo hemorrhagic effusion since can contribute to bleeding
Oncology following the patient
-
Status post lytic therapy as well, discussed case with IR 05/29/2024
Hb drop from 13 to 8
Observe CBC for anemia --> he was TRX 1 U PRBC on 05/28 --> Hb now stable.
Hemoglobin today 8.7-is stable
CXR/CT obtained indicating chronic L sided effusion
Other imaging reviewed--CT CHEST 03/2024 with complex effusion
Will repeat imaging while inpatient post chest tube insertion to evaluate lung tissue upon drainage.
Chest x-ray 05/30/2024: Slightly improved loculated left pleural effusion. Left lower lobe airspace disease. New subcutaneous emphysema, proximal side hole located outside the thoracic cavity
- Continue with repeat tPA/dornase instillation, chest tube will need to be repositioned by interventional radiolog Case discussed with patient, interventional radiology reconsulted for tube repositioning.
-
This was also agreed upon by IR, Dr. Wright. Will plan for 6 total installations and reassess CXR daily. If Hb continues to be unstable, then would check CT chest with IV contrast vs CTA chest with possible CT surgery consultation.
-
if pleural effusion not improving, may need CTS opinion on options
Most surgical options will be high risk
Dr. Montemayor discussed this all with patient
RLD noted, on PFTs
Likely from pleural disease
IS, PT/OT
Prior ECHO results are reviewed indicating stable function
MVP noted with mild MR
Will need outpatient pulmonary evaluation in our office for PFTs and 6MWT
Follows Dr Rhodes
We will follow
Diagnostic Data
CXR 05/29/2024: Moderate loculated left pleural effusion - slightly improved.
Chest X-Ray: 05/26/24- No pneumothorax, post left thoracentesis.
05/25/24- Moderate to large left pleural effusion, significantly increased.
CT Scan: CAP 03/23/24- 1. Small to moderate left pleural effusion with associated mild compressive left lower lobe atelectasis.
2. Pleural-based consolidation in the lingula anteriorly. This likely represents rounded atelectasis, less likely pleural metastatic disease. Recommend attention on follow-up exams.
3. Small right middle lobe perifissural nodule measuring 5 mm, likely benign. Recommend attention on follow-up exams. Of note this nodule is below PET imaging resolution.
4. Mildly enlarged bilateral axillary lymph nodes may reflect lymphoma.
5. Small 0.8 cm nodule within the right anterior subdiaphragmatic region, favored benign. Recommend attention on follow-up exams.
6. Hypoattenuating lesions within the proximal aspects of the bilateral inguinal canals as described. Differential includes spermatic cord hydrocele/cysts, ectopic testes, or necrotic lymph nodes. Consider initial further workup with dedicated
bilateral inguinal/scrotal ultrasound.
6. Otherwise, no convincing evidence for additional metastatic disease in the chest, abdomen or pelvis.
Echo: 03/14/20- 1. Normal left ventricular size and systolic function, ejection fraction 60-65%
2. Mild mitral regurgitation with normal left atrium
3. Normal aortic valve
4. Normal right heart with normal pulmonary artery pressure.
In 2014, there was mild posterior leaflet prolapse and mild LVH. The patient will be called and told that the study is stable with normal heart muscle function and no significant valvular abnormality.
Reports and relevant images were personally reviewed.
Total time spent today was 35 minutes for this encounter. Time includes reviewing laboratory test/imaging results, reviewing pertinent medical records, obtaining and reviewing medical history, performing an appropriate exam, ordering medications,
tests and procedures. Time also includes documentation of this encounter, coordinating patient care and communicating with other healthcare professionals. Total time does not include separately billed tests performed on this date of service.
Subjective Data
-
Date of Service:
Date of Service: May 30, 2024
Chief Complaint: Pulmonary Follow Up
Subjective:
No new complaints
Denies any chest pain
Do not shortness of breath
Review of Systems
General: Fever (n)
Cardiopulmonary: Dyspnea (none at rest)
GI: Abdominal Pain (n) and Nausea (n)
Neuro: Headache (n)
Objective Data
Data Reviewed
Vital Signs / I&O / Oxygen:
Vital Signs
Temp Pulse Resp BP Pulse Ox
98.2 F 95 16 133/71 96
05/30/24 07:20 05/30/24 07:20 05/30/24 07:20 05/30/24 07:20 05/30/24 08:52
Intake and Output
05/29/24 05/30/24 05/31/24
06:59 06:59 06:59
Intake Total 955 / 955 1620 / 1620
Output Total 1650 / 1650 1600 / 1600
Balance -695 / -695
SaO2 96
Physical Exam
General: Respiratory Distress (negative), Comfortable, Chills (negative) and Sweats (negative)
HEENT: Normocephalic and Anicteric
Cardiovascular: S1-S2 and Peripheral Edema (negative)
Respiratory: Wheeze (negative), Rhonchi (negative), Non-Labored Respirations, Chest Tube (left hemithorax), Other (Diminished breath sounds at left hemithorax at base to middle lung field) and Other (Coarse breath sounds heard bilaterally)
GI: Soft, Non Distended, Non Tender and Normal Bowel Sounds
Neurology: AO x 3 and Tremors (negative)
Skin: Warm, Dry and Jaundice (negative)
Labs/Micro/Reports
Lab Data
05/30/24 06:06
05/30/24 06:06
Microbiology
05/27/24 16:23 Pleural Fluid Anaerobic Culture - Preliminary
NO ANAEROBES ISOLATED
05/27/24 16:23 Pleural Fluid Body Fluid Culture - Preliminary
No Growth After 72 Hours
05/27/24 16:23 Pleural Fluid Gram Stain - Preliminary
--- NOTE | 2024-05-30 11:57 | W.PN.HOSP.TC ---
Today's Communication/Plan
-
Continue with chest tube to low wall suction
Monitor tube output
Trend temperature curve and CBC
Follow-up hemolytic panel
Assessment / Plan
Assessment / Plan
#Malignant loculated left pleural effusion
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
-Status post left thoracentesis on 02/19/2024 with 1300 mL drained
-Presented with recurrent left pleural effusion/hemothorax
-Thoracentesis on 05/26 with 100 mL drained from left pleura
-Left chest tube started on 05/27 by interventional radiology
-S/p pleural lysis with tPA/dornase on 05/29/2024; 600 mL output overnight
-Will continue CT to low wall suction for now, goal <100 mL output per day
-Pulmonology following
#Microcytic Anemia
-Differentials include iron deficiency, AOCD, hemolysis
-Hemoglobin was down to 7.4 earlier in hospital stay, s/p 1U PRBC
-Iron panel with signs of mixed picture, started oral iron supplementation
-Is at high risk for warm AIHA with his history of chronic lymphocytic leukemia
-Oncology recommended hemolytic markers, ordered for tomorrow's a.m. lab
-Will trend daily CBC, supportive transfusions as needed
#Chronic lymphocytic leukemia
-Follows with Dr. Rhodes, previously on Zanubrutinib though stopped prior to arrival
-Has significantly elevated WBC in the range of 60,000 which may represent baseline
-Oncology following
#Reported fever at home
-Status post full course of azithromycin
-Afebrile here, pleural fluid cultures negative
-Will continue to trend temperature curve and CBC here
#Vitamin B12 deficiency
-Status post IM repletion on 05/28
-Will continue with parenteral B12 replacement while here
-Plan for oral B12 supplementation at discharge
#Hypothyroidism
-Unclear etiology, home regimen includes 125 mcg
-No signs or symptoms of thyroid dysfunction at this time
-Stable on current dosage
#Constipation
-Continue Metamucil, added MiraLAX as needed
#GERD
#Hiatal hernia
-No known history of erosive disease or Ordonez's esophagus
-Home regimen includes omeprazole 20 mg nightly
-Stable, no red flag symptoms today
#BPH
-Continue Flomax
DVT prophylaxis: subcu Lovenox
Diet: Regular
CODE STATUS: Full code
Anticipated Discharge: 24 - 48 hours
Subjective/Interval History
-
Date of Service: May 30, 2024
Seen and examined at the bedside. No acute events overnight. AFVSS this morning.
I's/O's document 600 mL of chest tube output in the last 24 hours. Seems to still have bloody drainage
He otherwise denies any acute complaints. States his breathing is much better. Denies chest pain, shortness of breath, fevers or chills, nausea, vomiting, diarrhea, abdomen pain, urinary issues, abnormal bleeding or bruising, paresthesias or
weakness
Objective Data
-
Labs:
Laboratory Results
05/30/24
06:06
WBC 64.4 H*
Hgb 8.7 L
Hct 28.7 L
Plt Count 343
Sodium 134 L
Potassium 4.4
Chloride 97 L
Carbon Dioxide 28
BUN 22 H
Creatinine 0.7
Glucose 107 H
Calcium 9.4
Vital Signs:
Vital Signs
Temp Pulse Resp BP Pulse Ox
98.2 F 95 16 133/71 96
05/30/24 07:20 05/30/24 07:20 05/30/24 07:20 05/30/24 07:20 05/30/24 08:52
I&O
05/29/24 05/30/24 05/31/24
06:59 06:59 06:59
Intake Total 955 / 955 1620 / 1620
Output Total 1650 / 1650 1600 / 1600
Balance -695 / -695
Review of Systems
-
History Source: Patient
All other systems: Reviewed and negative
Physical Exam
-
General: No Apparent Distress, Comfortable and Other (Thin male)
HEENT: Normocephalic, Atraumatic and Moist Mucous Membranes
Respiratory: Clear to Auscultation, Non Labored Respirations and Chest Tubes (Left-sided, bloody drainage); Negative Wheezes, Rales, Rhonchi or Accessory Resp Muscle Use
Cardiac: Regular Rhythm and S1/S2; Negative Murmur, Rub, JVD or Gallop
GI: Soft, Nontender, Nondistended and Normal Bowel Sounds
Musculoskeletal: No Clubbing, No Cyanosis and No Edema
Skin: Warm, Dry and Normal Turgor; Negative Rash or Jaundice
Neuro: AO x 3, Nonfocal/Grossly Intact and Central Nerve's Intact; Negative Tremors
Psych: Calm
Data Reviewed
-
Labs: Labs Reviewed by me and Discussed with Patient
--- NOTE | 2024-05-30 12:16 | CM ---
Met with patient. 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 He was independent prior to admit. He does not use any DME. No history of SNF or VNA.
PCP Dr. Oneill
[facility].
Plan is to continue with chest tube to low wall suction and monitor tube output. Patient plans to go home and have outpatient followup.
PLAN: home no needs
[2024-05-30 14:54] VITALS: BP 139/67; BP_SYST 109
--- NOTE | 2024-05-30 15:44 | W.PN.UPDATE ---
Update Note
Progress Note Update
- Successfully exchanged and repositioned L chest tube with new 14F pigtail catheter. Catheter placed more inferiorly with immediately return of low viscosity bloody fluid through the tube.
- Discussed with Dr. Galloway. Would follow outputs overnight with repeat CXR vs CT in the am. Will delay additional tPA/dornase pending reevaluation tomorrow.
[2024-05-30 16:12] VITALS: BP 121/68
--- NOTE | 2024-05-30 16:31 | PTCARENOTE ---
Pt. went down to IR at 1500 due to chest tube placement. IR changed the tube and the pleuravac. Due to the trauma during the procedure, Dr. Galloway will hold the Alteplase and Dornase due today and will reassess tomorrow. Chest tube hooked back up
to suction and will continue to monitor output.
[2024-05-30] MEDS: LOVENOX 40 MG SC (17:06)
[2024-05-30] MEDS: FLOMAX 0.4 MG PO (21:04)
[2024-05-30] MEDS: LIPITOR 10 MG PO (21:05)
[2024-05-30] MEDS: LOPRESSOR 25 MG PO (21:05)
[2024-05-30] MEDS: PROTONIX 40 MG PO (21:06)
[2024-05-30] MEDS: OCUVITE SOFTGEL 1 CAP PO (21:06)
[2024-05-30] MEDS: SYNTHROID 125 MCG PO (21:06)
[2024-05-30] MEDS: TYLENOL 650 MG PO (21:12)
[2024-05-30] MEDS: BENADRYL 25 MG PO (21:33)
[2024-05-30 22:20] VITALS: BP 132/68
[2024-05-31 07:04] LABS: Hematocrit 29.7 % (39.0-52.0); Hemoglobin 9.1 g/dL (13.0-18.0); Mean Corp Hgb Conc. 30.6 g/dL (33.0-37.0); Mean Corpuscular Hgb 24.3 pg (27.0-31.0); Mean Corpuscular Volume 79.2 fL (80.0-94.0); Platelet Count 401 10^3/uL (130-400); Red Blood Cell Count 3.75 10^6/uL (4.70-6.10); Red Cell Dist. Width 17.2 % (11.5-14.5); Reticulocyte Count 1.1 % (0.4-2.8); White Blood Cell Count 72.6 10^3/uL (4.8-10.8)
[2024-05-31 07:09] LABS: ALT (SGPT) 59 U/L (0-50); AST (SGOT) 67 U/L (17-59); Albumin 3.3 g/dl (3.5-5.0); Alkaline Phosphatase 100 U/L (38-126); Blood Urea Nitrogen 20 mg/dl (9-20); Carbon Dioxide 29 mmol/L (22-30); Chloride 98 mmol/L (98-107); Estimated Creatinine Clearance 79 ml/min; Glucose 103 mg/dl (70-99); LDH 168 U/L (120-246); Potassium 4.7 mmol/L (3.5-5.1); Sodium 138 mmol/L (135-145); Total Bilirubin 0.4 mg/dl (0.2-1.3); Total Protein 5.8 g/dl (6.3-8.2); eGFR > 60.00
[2024-05-31 07:16] VITALS: BP 142/98
[2024-05-31] MEDS: SENOKOT-S 1 TABLET PO ×2 (07:42→19:35)
[2024-05-31] MEDS: FEOSOL 325 MG PO (07:42)
[2024-05-31] MEDS: CYANOCOBALAMIN 1000 MCG IM (07:42)
--- NOTE | 2024-05-31 10:34 | W.PN.HOSP.TC ---
Today's Communication/Plan
-
Continue chest tube to low wall suction
Follow-up pulm and IR recommendations
Trend daily CBC, follow-up on FRAN
Assessment / Plan
Assessment / Plan
#Malignant loculated left pleural effusion
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
-Status post left thoracentesis on 02/19/2024 with 1300 mL drained
-Presented with recurrent left pleural effusion/hemothorax
-Thoracentesis on 05/26 with 100 mL drained from left pleura
-Left chest tube started on 05/27 by interventional radiology
-S/p pleural lysis with tPA/dornase on 05/29/2024; 600 mL output overnight
-Will continue CT to low wall suction for now, goal <100 mL output per day
-X-ray this morning showing improvement though possible signs of trapped lung
-Pulmonology following
#Microcytic Anemia
-Differentials include iron deficiency, AOCD; less likely hemolysis despite concurrent CLL
-Hemoglobin was down to 7.4 earlier in hospital stay, s/p 1U PRBC, hemoglobin near 9 since
-Iron panel with signs of mixed picture, started oral iron supplementation on 05/30
-LDH this morning was within normal range, bilirubin WNL as well; haptoglobin ending pending
-Will trend daily CBC, supportive transfusions as needed
#Chronic lymphocytic leukemia
-Follows with Dr. Rhodes, previously on Zanubrutinib though stopped prior to arrival
-Patient states that Zanubrutinib has risk of hemorrhage and he associates with hemothorax
-Has significantly elevated WBC in the range of 60,000 which may represent baseline
-Oncology following
#Reported fever at home
-Status post full course of azithromycin
-Afebrile here, pleural fluid cultures negative
-Will continue to trend temperature curve and CBC here
#Vitamin B12 deficiency
-Status post IM repletion on 05/28
-Will continue with parenteral B12 replacement while here
-Plan for oral B12 supplementation at discharge
#Hypothyroidism
-Unclear etiology, home regimen includes 125 mcg
-No signs or symptoms of thyroid dysfunction at this time
-Stable on current dosage
#Constipation
-Continue Metamucil, added MiraLAX as needed
#GERD
#Hiatal hernia
-No known history of erosive disease or Ordonez's esophagus
-Home regimen includes omeprazole 20 mg nightly
-Stable, no red flag symptoms today
#BPH
-Continue Flomax
DVT prophylaxis: subcu Lovenox
Diet: Regular
CODE STATUS: Full code
Anticipated Discharge: 24 - 48 hours
Subjective/Interval History
-
Date of Service: May 31, 2024
Seen and examined at the bedside today. No acute events overnight. AFVSS.
Yesterday his chest tube was repositioned with improved output. Chest x-ray this morning showing improvement with regards to pleural fluid though increased degree of loculated pneumothorax suggesting possible trapped lung. Reached out to
pulmonology for further guidance
He denies any acute complaints including chest pain, shortness of breath, fevers or chills, nausea or vomiting, abdominal pain, abnormal bleeding or bruising, paresthesias or weak
Objective Data
-
Labs:
Laboratory Results
05/31/24
06:11
WBC 72.6 H*
Hgb 9.1 L
Hct 29.7 L
Plt Count 401 H
Sodium 138
Potassium 4.7
Chloride 98
Carbon Dioxide 29
BUN 20
Creatinine 0.7
Glucose 103 H
Calcium 10.0
Total Bilirubin 0.4
AST 67 H
ALT 59 H
Alkaline Phosphatase 100
Vital Signs:
Vital Signs
Temp Pulse Resp BP Pulse Ox
97.9 F 58 13 142/98 97
05/31/24 07:16 05/31/24 07:16 05/31/24 07:16 05/31/24 07:16 05/31/24 07:16
I&O
05/30/24 05/31/24 06/01/24
06:59 06:59 06:59
Intake Total 1620 / 1620 1800 / 1800
Output Total 1600 / 1600 1355 / 1355
Balance 445 / 445
Review of Systems
-
History Source: Patient
All other systems: Reviewed and negative
Physical Exam
-
General: No Apparent Distress and Comfortable; Negative Pain
HEENT: Normocephalic, Atraumatic, Moist Mucous Membranes and Anicteric
Respiratory: Clear to Auscultation, Non Labored Respirations and Decreased Breath Sounds (left lung base); Negative Wheezes, Rales or Rhonchi
Cardiac: Regular Rhythm and S1/S2 (Loud S2); Negative Murmur, Rub, JVD or Gallop
GI: Soft, Nontender, Nondistended and Normal Bowel Sounds
Musculoskeletal: No Clubbing, No Cyanosis and No Edema
Skin: Warm and Dry; Negative Rash or Jaundice
Neuro: AO x 3, Nonfocal/Grossly Intact and Central Nerve's Intact
Data Reviewed
-
Labs: Labs Reviewed by me and Discussed with Patient
--- NOTE | 2024-05-31 14:31 | W.PN.PUL3 ---
Today's Communication / Plan
-
CT chest in AM
Hold TPA.dornase today.
IS
Hopefully can DC chest tube in AM depending on CT results.
Assessment
-
Patient is a 83-year-old male with a past medical history of CLL, chronic malignant left-sided pleural effusion, restrictive lung disease, GERD/Ordonez's esophagus, hypertension, hyperlipidemia, presenting with 1-2 week history of worsening
shortness of breath due to his malignant left pleural effusion. Patient had an outpatient left thoracentesis 05/26/2024, and drained 100 cc that was thick and bloody, difficult to extract. Ultrasound showing subacute to chronic hemothorax that is
septated and requires a chest tube. We are consulted for eval.
Impression:
L sided pleural effusion s/p successful ultrasound-guided LEFT thoracentesis, yielding 100 mL of sanguinous pleural fluid 05/26/24
s/p chest tube placement by IR with lytic therapy 05/27/24
Hemorrhagic effusion (?due to first thoracentesis with vessel hit, as effusion became bloody after 1st thora on 05/26/2024 vs malignant effusion)
Acute blood loss anemia from above
SOB
Conditions present prior to admission
Chronic left-sided malignant pleural effusion s/p thora + cyto (+) on 02/19/2024
Chronic cough, cough variant asthma
Follows Dr. Rhodes
Post-nasal drip
Allergic rhinitis, IgE 329/skin testing+grass
Restrictive lung disease
GERD
Diastolic dysfunction
MVP
Hypertension
Hypothyroidism
CLL
Plan
No overnight events
Respiratory status remains unchanged.
Not on supplemental oxygen.
Subjectively feels better.
Prior history of lung disease is noted including chronic left sided malignant effusion
s/p thora in February with confirmed cyto for CLL, consistent with his history
s/p thora 05/26 which was thick/bloody, only 100mL extracted
s/p chest tube placement by IR 05/27/24, (40cc extracted) - fluid studies sent for cultures + cytopathology
- Fluid from chest tube is very high in WBC with 30,120, which is monocyte predominant and consistent with hemothorax given hematocrit is 23.3%
hold brukinsa with concern fo hemorrhagic effusion since can contribute to bleeding
Oncology following the patient
-
Status post lytic therapy as well, discussed case with IR 05/29/2024
Hb drop from 13 to 8
Observe CBC for anemia --> he was TRX 1 U PRBC on 05/28 --> Hb now stable.
Hemoglobin today 9.1-improving.
CXR/CT obtained indicating chronic L sided effusion
Other imaging reviewed--CT CHEST 03/2024 with complex effusion
Will repeat imaging while inpatient post chest tube insertion to evaluate lung tissue upon drainage.
Chest x-ray 05/30/2024: Slightly improved loculated left pleural effusion. Left lower lobe airspace disease. New subcutaneous emphysema, proximal side hole located outside the thoracic cavity
s/p TPA/Dornase on Thursday.
Held on Thursday, chest tube repossitioned/replaced, with additional fluid drainge.
Total in last 24hr 405ml
CXR 05/31/2024- reviewed, hydroPTX - improved fluid component, tube in adequate position
Chest tube without airleak.
-
Will hold on TPA/dornase due to improvement.
Follow output, will get CT chest in AM with IV contrast, if no significant effusion and output decreased to <100cc then will DC chest tube.
-
RLD noted, on PFTs
Likely from pleural disease
IS, PT/OT
Prior ECHO results are reviewed indicating stable function
MVP noted with mild MR
Case discussed with primary team and IR. As well as with primary copper flotation operator, Dr. Rhodes.
Will need outpatient pulmonary evaluation in our office for PFTs and 6MWT
Follows Dr Rhodes
We will follow
Diagnostic Data
CXR 05/29/2024: Moderate loculated left pleural effusion - slightly improved.
Chest X-Ray: 05/26/24- No pneumothorax, post left thoracentesis.
05/25/24- Moderate to large left pleural effusion, significantly increased.
CT Scan: CAP 03/23/24- 1. Small to moderate left pleural effusion with associated mild compressive left lower lobe atelectasis.
2. Pleural-based consolidation in the lingula anteriorly. This likely represents rounded atelectasis, less likely pleural metastatic disease. Recommend attention on follow-up exams.
3. Small right middle lobe perifissural nodule measuring 5 mm, likely benign. Recommend attention on follow-up exams. Of note this nodule is below PET imaging resolution.
4. Mildly enlarged bilateral axillary lymph nodes may reflect lymphoma.
5. Small 0.8 cm nodule within the right anterior subdiaphragmatic region, favored benign. Recommend attention on follow-up exams.
6. Hypoattenuating lesions within the proximal aspects of the bilateral inguinal canals as described. Differential includes spermatic cord hydrocele/cysts, ectopic testes, or necrotic lymph nodes. Consider initial further workup with dedicated
bilateral inguinal/scrotal ultrasound.
6. Otherwise, no convincing evidence for additional metastatic disease in the chest, abdomen or pelvis.
Echo: 03/14/20- 1. Normal left ventricular size and systolic function, ejection fraction 60-65%
2. Mild mitral regurgitation with normal left atrium
3. Normal aortic valve
4. Normal right heart with normal pulmonary artery pressure.
In 2014, there was mild posterior leaflet prolapse and mild LVH. The patient will be called and told that the study is stable with normal heart muscle function and no significant valvular abnormality.
Reports and relevant images were personally reviewed.
Total time spent today was 35 minutes for this encounter. Time includes reviewing laboratory test/imaging results, reviewing pertinent medical records, obtaining and reviewing medical history, performing an appropriate exam, ordering medications,
tests and procedures. Time also includes documentation of this encounter, coordinating patient care and communicating with other healthcare professionals. Total time does not include separately billed tests performed on this date of service.
Subjective Data
-
Date of Service:
Date of Service: May 31, 2024
Chief Complaint: Pulmonary Follow Up
Subjective:
No new complaints.
Feels better, asking to go home
Review of Systems
Cardiopulmonary: Dyspnea (none at rest), Cough (n) and Sputum Production (n)
GI: Abdominal Pain (n) and Nausea (n)
Objective Data
Data Reviewed
Vital Signs / I&O / Oxygen:
Vital Signs
Temp Pulse Resp BP Pulse Ox
97.9 F 58 13 142/98 97
05/31/24 07:16 05/31/24 07:16 05/31/24 07:16 05/31/24 07:16 05/31/24 07:16
Intake and Output
05/30/24 05/31/24 06/01/24
06:59 06:59 06:59
Intake Total 1620 / 1620 1800 / 1800
Output Total 1600 / 1600 1355 / 1355
Balance 20 / 20 445 / 445
SaO2 97
Physical Exam
General: Respiratory Distress (negative), Comfortable, Chills (negative) and Sweats (negative)
HEENT: Normocephalic and Anicteric
Cardiovascular: S1-S2 and Peripheral Edema (negative)
Respiratory: Wheeze (negative), Rhonchi (negative), Non-Labored Respirations, Chest Tube (left hemithorax), Other (Diminished breath sounds at left hemithorax at base to middle lung field) and Other (Coarse breath sounds heard bilaterally)
GI: Soft, Non Distended, Non Tender and Normal Bowel Sounds
Neurology: AO x 3 and Tremors (negative)
Skin: Warm, Dry and Jaundice (negative)
Labs/Micro/Reports
Lab Data
05/31/24 06:11
05/31/24 06:11
Microbiology
05/27/24 16:23 Pleural Fluid Body Fluid Culture - Preliminary
No Growth After 72 Hours
05/27/24 16:23 Pleural Fluid Gram Stain - Preliminary
05/27/24 16:23 Pleural Fluid Anaerobic Culture - Preliminary
NO ANAEROBES ISOLATED
[2024-05-31 15:30] VITALS: BP 139/74
[2024-05-31] MEDS: LOVENOX 40 MG SC (17:12)
[2024-05-31] MEDS: PROTONIX 40 MG PO (21:33)
[2024-05-31] MEDS: FLOMAX 0.4 MG PO (21:33)
[2024-05-31] MEDS: OCUVITE SOFTGEL 1 CAP PO (21:33)
[2024-05-31] MEDS: SYNTHROID 125 MCG PO (21:33)
[2024-05-31] MEDS: LOPRESSOR 25 MG PO (21:34)
[2024-05-31] MEDS: LIPITOR 10 MG PO (21:34)
[2024-05-31] MEDS: BENADRYL 25 MG PO (23:12)
[2024-05-31] MEDS: TYLENOL 650 MG PO (23:14)
[2024-05-31 23:29] VITALS: BP 140/66
--- NOTE | 2024-06-01 06:01 | DOWNTIME ---
There was a [employer] Client Pulping Machine Operator Downtime on 06/01/2024 from 0100 to 06/01/2024 at 0300. Downtime documentation of patient's care, including medication administrations, has been reconciled in the electronic record per guidelines. Refer to the
patient's paper chart under the miscellaneous tab to see printed paper medication records and downtime forms.
[2024-06-01 06:46] LABS: Hematocrit 25.6 % (39.0-52.0); Hemoglobin 7.8 g/dL (13.0-18.0); Mean Corp Hgb Conc. 30.5 g/dL (33.0-37.0); Mean Corpuscular Hgb 23.2 pg (27.0-31.0); Mean Corpuscular Volume 76.2 fL (80.0-94.0); Mean Platelet Volume 10.2 fL (7.4-10.4); Platelet Count 364 10^3/uL (130-400); Red Blood Cell Count 3.36 10^6/uL (4.70-6.10); White Blood Cell Count 60.6 10^3/uL (4.8-10.8)
[2024-06-01 06:54] LABS: ALT (SGPT) 60 U/L (0-50); AST (SGOT) 55 U/L (17-59); Alkaline Phosphatase 96 U/L (38-126); Blood Urea Nitrogen 18 mg/dl (9-20); Calcium 9.2 mg/dl (8.4-10.2); Carbon Dioxide 28 mmol/L (22-30); Chloride 97 mmol/L (98-107); Direct Bilirubin 0.1 mg/dl (0.0-0.4); Estimated Creatinine Clearance 79 ml/min; Glucose 92 mg/dl (70-99); Potassium 4.6 mmol/L (3.5-5.1); Sodium 135 mmol/L (135-145); Total Bilirubin 0.4 mg/dl (0.2-1.3); Total Protein 5.4 g/dl (6.3-8.2); eGFR > 60.00
[2024-06-01] MEDS: FEOSOL 325 MG PO (07:05)
[2024-06-01] MEDS: SENOKOT-S 1 TABLET PO (07:05)
[2024-06-01] MEDS: CYANOCOBALAMIN 1000 MCG IM (07:06)
[2024-06-01 07:17] LABS: % Basophils 0.1 % (0-2); % Eosinophils 0.7 % (0-6); % Immature Granulocytes 0.2 % (0-0.5); % Lymphocytes 91.1 % (20.5-51.1); % Monocytes 1.3 % (1.7-9.3); % Neutrophils 6.6 % (42.2-75.2); Absolute Eosinophils 0.4 10^3/uL (0-0.7); Absolute Immature Granulocytes 0.1 10^3/uL (0-0.05); Absolute Lymphocytes 55.2 10^3/uL (1.2-3.4); Absolute Monocytes 0.8 10^3/uL (0.1-0.6); Nucleated Red Blood Cells % 0 % (-)
[2024-06-01 07:46] VITALS: BP 148/78
--- NOTE | 2024-06-01 09:41 | W.PN.ONC2 ---
Today's Communication / Plan
-
repeat H/H
monitor for bleeding
check coags
Impression
Impression
CLL -stable and asymptomatic on observation 2018 until March 2024 then started on Brukinsa due to suspected POD with malignant pleural effusion February 2024 cytology/flow c/w CLL/SLL
recurrent pleural Effusion, s/p thoracentesis 05/26 100cc pleural fluid drained, chest tube placed 05/27 with TPA/dornase installation per pulmonary
anemia, microcytic multifactorial. Iron studies c/w AOCD/inflammation. hemorrhagic pleural effusion. +B12 deficiency on B12 shots with PCP. Hemolysis unlikely with normal retic and LFts
restrictive lung dz
GERD
HFpEF
MVP
HTN
Plan
Plan
chest tube management per pulmonary
follow pleural fluid cytology
f/u haptoglobin
anemia, s/p 1unit prbc 05/28
check coags
d/c Brukinsa, contributing to bleeding and CLL not responding
Will consider Gazyva/Venclexta in outpatient follow up
Requesting outpt second opinion at [facility] although anticipates returning back to our care. We will arrange.
Continue supportive care.
Subjective/Objective
Chief Complaint
no new complaints
Subjective
WBC stable, Hgb drop from 9.1->7.8
afebrile, no hypoxia or hypotension
Vital Signs:
Vital Signs
Temp Pulse Resp BP Pulse Ox
98.7 F 92 18 148/78 95
06/01/24 07:46 06/01/24 07:46 06/01/24 07:46 06/01/24 07:46 06/01/24 07:46
Lab Results:
Laboratory Data
WBC 60.6 10^3/uL (4.8-10.8) H* 06/01/24 06:09
Hgb 7.8 g/dL (13.0-18.0) L 06/01/24 06:09
Plt Count 364 10^3/uL (130-400) 06/01/24 06:09
eGFR > 60.00 06/01/24 06:09
Physical Exam
General: Well Developed
HEENT: Moist Mucous Membranes
Cardiology: Normal Sinus Rhythm
Pulmonary: Clear, chest tube
GI: Soft
Ext No Edema
Neurology: Non Focal
Psych: Calm
Review of Systems
Review of Systems
ROS notable for subjective, otherwise negative
--- NOTE | 2024-06-01 11:43 | W.PN.HOSP.TC ---
Today's Communication/Plan
-
Plan to remove chest tube
Follow-up afternoon labs
Possible discharge later
Assessment / Plan
Assessment / Plan
#Malignant loculated left pleural effusion
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
-Status post left thoracentesis on 02/19/2024 with 1300 mL drained
-Presented with recurrent left pleural effusion/hemothorax
-Thoracentesis on 05/26 with 100 mL drained from left pleura
-Left chest tube started on 05/27 by interventional radiology
-S/p pleural lysis with tPA/dornase on 05/29/2024; 600 mL output overnight
-Will continue CT to low wall suction for now, goal <100 mL output per day
-CT thorax today showed improvement, planning to remove chest tube this afternoon
#Microcytic Anemia
-Differentials include iron deficiency, AOCD; less likely hemolysis despite concurrent CLL
-Hemoglobin was down to 7.4 earlier in hospital stay, s/p 1U PRBC, Hgb range of 7.5-9.0 since
-Iron panel with signs of mixed picture, started oral iron supplementation on 05/30
-LDH this morning was within normal range, bilirubin WNL as well; haptoglobin ending pending
-Will trend daily CBC, supportive transfusions as needed
-Follow-up coags ordered by oncology
#Chronic lymphocytic leukemia
-Follows with Dr. Rhodes, previously on Zanubrutinib though stopped prior to arrival
-Patient states that Zanubrutinib has risk of hemorrhage and he associates with hemothorax
-Has significantly elevated WBC in the range of 60,000 which may represent baseline
-Oncology following
#Reported fever at home
-Status post full course of azithromycin
-Afebrile here, pleural fluid cultures negative
-Will continue to trend temperature curve and CBC here
#Vitamin B12 deficiency
-Status post IM repletion on 05/28
-Will continue with parenteral B12 replacement while here
-Plan for oral B12 supplementation at discharge
#Hypothyroidism
-Unclear etiology, home regimen includes 125 mcg
-No signs or symptoms of thyroid dysfunction at this time
-Stable on current dosage
#Constipation
-Continue Metamucil, added MiraLAX as needed
#GERD
#Hiatal hernia
-No known history of erosive disease or Ordonez's esophagus
-Home regimen includes omeprazole 20 mg nightly
-Stable, no red flag symptoms today
#BPH
-Continue Flomax
DVT prophylaxis: subcu Lovenox
Diet: Regular
CODE STATUS: Full code
Anticipated Discharge: Within 24 hours
Subjective/Interval History
-
Date of Service: June 01, 2024
Seen and examined at bedside. No acute events overnight. AFVSS this morning.
Chest tube output continues to de-escalate. CT thorax this morning showed improved left-sided effusion, basilar atelectasis and stable pulmonary nodule
He denies any acute complaints. Denies active chest pain, shortness of breath, fevers or chills, GI issues, urinary issues, abnormal bleeding or bruising, paresthesias or weakness.
He is motivated to go home today after chest tube removal
Objective Data
-
Labs:
Laboratory Results
06/01/24 06/01/24
06:09 13:00
WBC 60.6 H* Pending
Hgb 7.8 L Pending
Hct 25.6 L Pending
Plt Count 364 Pending
PT Pending
INR Pending
APTT Pending
Sodium 135
Potassium 4.6
Chloride 97 L
Carbon Dioxide 28
BUN 18
Creatinine 0.7
Glucose 92
Calcium 9.2
Total Bilirubin 0.4
AST 55
ALT 60 H
Alkaline Phosphatase 96
Vital Signs:
Vital Signs
Temp Pulse Resp BP Pulse Ox
98.7 F 92 18 148/78 95
06/01/24 07:46 06/01/24 07:46 06/01/24 07:46 06/01/24 07:46 06/01/24 07:46
I&O
05/31/24 06/01/24 06/02/24
06:59 06:59 06:59
Intake Total 1800 / 1800 840 / 840
Output Total 1355 / 1355 810 / 810
Balance 445 / 445
Review of Systems
-
History Source: Patient
All other systems: Reviewed and negative
Physical Exam
-
General: No Apparent Distress and Comfortable; Negative Appears in Distress or Pain
HEENT: Normocephalic, Atraumatic and Moist Mucous Membranes
Respiratory: Non Labored Respirations and Decreased Breath Sounds (Left lung base, improved); Negative Wheezes, Rales, Rhonchi or Accessory Resp Muscle Use
Cardiac: Regular Rhythm and S1/S2 (Loud S2); Negative Murmur, Rub or Gallop
GI: Soft, Nontender, Nondistended and Normal Bowel Sounds
Musculoskeletal: No Clubbing, No Cyanosis and No Edema
Skin: Warm, Dry and Normal Turgor; Negative Rash
Neuro: AO x 3, Nonfocal/Grossly Intact and Central Nerve's Intact
Psych: Calm
Data Reviewed
-
CT Scan: Report Reviewed by me and Discussed with Physician
Labs: Labs Reviewed by me and Discussed with Patient
--- NOTE | 2024-06-01 11:53 | W.PN.PUL3 ---
Today's Communication / Plan
-
Discontinue chest tube today
Hopefully discharge later today
Continue incentive spirometry at home
Short-term follow-up with pulmonary, Dr. Rhodes.
Assessment
-
Patient is a 83-year-old male with a past medical history of CLL, chronic malignant left-sided pleural effusion, restrictive lung disease, GERD/Ordonez's esophagus, hypertension, hyperlipidemia, presenting with 1-2 week history of worsening
shortness of breath due to his malignant left pleural effusion. Patient had an outpatient left thoracentesis 05/26/2024, and drained 100 cc that was thick and bloody, difficult to extract. Ultrasound showing subacute to chronic hemothorax that is
septated and requires a chest tube. We are consulted for eval.
Impression:
L sided pleural effusion s/p successful ultrasound-guided LEFT thoracentesis, yielding 100 mL of sanguinous pleural fluid 05/26/24
s/p chest tube placement by IR with lytic therapy 05/27/24
Hemorrhagic effusion (?due to first thoracentesis with vessel hit, as effusion became bloody after 1st thora on 05/26/2024 vs malignant effusion)
Acute blood loss anemia from above
SOB
Conditions present prior to admission
Chronic left-sided malignant pleural effusion s/p thora + cyto (+) on 02/19/2024
Chronic cough, cough variant asthma
Follows Dr. Rhodes
Post-nasal drip
Allergic rhinitis, IgE 329/skin testing+grass
Restrictive lung disease
GERD
Diastolic dysfunction
MVP
Hypertension
Hypothyroidism
CLL
Plan
No overnight events
Respiratory status remains unchanged.
Not on supplemental oxygen.
Subjectively feels better.
Prior history of lung disease is noted including chronic left sided malignant effusion
s/p thora in February with confirmed cyto for CLL, consistent with his history
s/p thora 05/26 which was thick/bloody, only 100mL extracted
s/p chest tube placement by IR 05/27/24, (40cc extracted) - fluid studies sent for cultures + cytopathology
- Fluid from chest tube is very high in WBC with 30,120, which is monocyte predominant and consistent with hemothorax given hematocrit is 23.3%
hold brukinsa with concern fo hemorrhagic effusion since can contribute to bleeding
Oncology following the patient
Culture negative
Cytology negative for cancer
-
Status post lytic therapy as well, discussed case with IR 05/29/2024
Hb drop from 13 to 8
Continue to follow hemoglobin.
-
CXR/CT obtained indicating chronic L sided effusion
Other imaging reviewed--CT CHEST 03/2024 with complex effusion
Will repeat imaging while inpatient post chest tube insertion to evaluate lung tissue upon drainage.
Chest x-ray 05/30/2024: Slightly improved loculated left pleural effusion. Left lower lobe airspace disease. New subcutaneous emphysema, proximal side hole located outside the thoracic cavity
s/p TPA/Dornase on Thursday.
Held on Thursday, chest tube repossitioned/replaced, with additional fluid drainge.
CXR 05/31/2024- reviewed, hydroPTX - improved fluid component, tube in adequate position
Chest tube without airleak.
-
No furtherTPA/dornase due to improvement.
Last 24 hours output [address] chest with IV contrast reviewed, showed significant left lower lobe atelectasis. Minimal amount of fluid. Hydropneumothorax. Chest tube in adequate position
Discussed with Dr. Johnson from interventional radiology, chest tube will be discontinued.
Discussed with patient and at the bedside. Okay to discharge later today if feels better.
Will need close outpatient radiographic follow-up. She will make an appointment with Dr. Rhodes in the next 2 to 3 weeks.
-
Increase activity as tolerated
Advised to use incentive spirometry at home frequently
Will need outpatient pulmonary evaluation in our office for PFTs and 6MWT
Follow[address] Dr Rhodes
We will follow
Extensive discussion with and patient at the bedside by Dr. Galloway 06/01/2024.
-
Case discussed with interventional radiology and primary team.
Chest tube will be discontinued today.
Close outpatient pulmonary follow-up
Hopefully can discharge later today

Diagnostic Data
CXR 05/29/2024: Moderate loculated left pleural effusion - slightly improved.
Chest X-Ray: 05/26/24- No pneumothorax, post left thoracentesis.
05/25/24- Moderate to large left pleural effusion, significantly increased.
CT Scan: CAP 03/23/24- 1. Small to moderate left pleural effusion with associated mild compressive left lower lobe atelectasis.
2. Pleural-based consolidation in the lingula anteriorly. This likely represents rounded atelectasis, less likely pleural metastatic disease. Recommend attention on follow-up exams.
3. Small right middle lobe perifissural nodule measuring 5 mm, likely benign. Recommend attention on follow-up exams. Of note this nodule is below PET imaging resolution.
4. Mildly enlarged bilateral axillary lymph nodes may reflect lymphoma.
5. Small 0.8 cm nodule within the right anterior subdiaphragmatic region, favored benign. Recommend attention on follow-up exams.
6. Hypoattenuating lesions within the proximal aspects of the bilateral inguinal canals as described. Differential includes spermatic cord hydrocele/cysts, ectopic testes, or necrotic lymph nodes. Consider initial further workup with dedicated
bilateral inguinal/scrotal ultrasound.
6. Otherwise, no convincing evidence for additional metastatic disease in the chest, abdomen or pelvis.
Echo: 03/14/20- 1. Normal left ventricular size and systolic function, ejection fraction 60-65%
2. Mild mitral regurgitation with normal left atrium
3. Normal aortic valve
4. Normal right heart with normal pulmonary artery pressure.
In 2015, there was mild posterior leaflet prolapse and mild LVH. The patient will be called and told that the study is stable with normal heart muscle function and no significant valvular abnormality.
Reports and relevant images were personally reviewed.
Subjective Data
-
Date of Service:
Date of Service: June 01, 2024
Chief Complaint: Pulmonary Follow Up
Subjective:
Feels better
Denies any chest discomfort
Denies shortness of breath at rest
Denies significant hemoptysis or purulent sputum production
Would like to hold would like to go home if possible
Review of Systems
Cardiopulmonary: Dyspnea (none at rest)
Objective Data
Data Reviewed
Vital Signs / I&O / Oxygen:
Vital Signs
Temp Pulse Resp BP Pulse Ox
98.7 F 92 18 148/78 95
06/01/24 07:46 06/01/24 07:46 06/01/24 07:46 06/01/24 07:46 06/01/24 07:46
Intake and Output
05/31/24 06/01/24 06/02/24
06:59 06:59 06:59
Intake Total 1800 / 1800 840 / 840
Output Total 1355 / 1355 810 / 810
Balance 445 / 445 30 / 30
SaO2 95
Physical Exam
General: Respiratory Distress (negative), Comfortable, Chills (negative) and Sweats (negative)
HEENT: Normocephalic and Anicteric
Cardiovascular: S1-S2 and Peripheral Edema (negative)
Respiratory: Wheeze (negative), Rhonchi (negative), Non-Labored Respirations, Chest Tube (left hemithorax), Other (Diminished breath sounds at left hemithorax at base to middle lung field) and Other (Coarse breath sounds heard bilaterally)
GI: Soft, Non Distended, Non Tender and Normal Bowel Sounds
Neurology: AO x 3 and Tremors (negative)
Skin: Warm, Dry and Jaundice (negative)
Labs/Micro/Reports
Lab Data
06/01/24 06:09
Microbiology
05/27/24 16:23 Pleural Fluid Body Fluid Culture - Preliminary
No Growth After 72 Hours
05/27/24 16:23 Pleural Fluid Gram Stain - Preliminary
05/27/24 16:23 Pleural Fluid Anaerobic Culture - Preliminary
NO ANAEROBES ISOLATED
--- NOTE | 2024-06-01 12:01 | W.PN.UPDATE ---
Update Note
Progress Note Update
Left chest tube removed without difficulty. Vaseline gauze and DSD applied. Pt tolerated the procedure well. CXR show stable basilar hydropneumothorax consistent with trapped lung
--- NOTE | 2024-06-01 12:16 | CM ---
Addendum entered by JOURDAN Coffman 06/01/24 15:40:
Patient has been cleared for discharge. Met with patient and reviewed IMM. He signed it and it is now on chart.
Original Note:
Reviewed notes. Per PT patient at baseline level of functioning. Will return home when medically stable.
Plan: Case management will continue to follow and assist with discharge planning. Home when cleared.
[2024-06-01 13:15] LABS: INR 1.12; PT 14.4 Sec (11.4-14.6)
[2024-06-01 13:16] LABS: APTT 48.6 Sec (23.4-35.0)
[2024-06-01 13:19] LABS: Hematocrit 26.6 % (39.0-52.0); Mean Corp Hgb Conc. 30.1 g/dL (33.0-37.0); Mean Corpuscular Hgb 22.9 pg (27.0-31.0); Mean Corpuscular Volume 76.2 fL (80.0-94.0); Mean Platelet Volume 10.2 fL (7.4-10.4); Platelet Count 390 10^3/uL (130-400); Red Blood Cell Count 3.49 10^6/uL (4.70-6.10); Red Cell Dist. Width 17.1 % (11.5-14.5)
[2024-06-01 13:38] LABS: % Basophils 0.1 % (0-2); % Eosinophils 0.4 % (0-6); % Immature Granulocytes 0.2 % (0-0.5); % Lymphocytes 90.8 % (20.5-51.1); % Monocytes 1.3 % (1.7-9.3); % Neutrophils 7.2 % (42.2-75.2); Absolute Basophils 0.1 10^3/uL (0-0.2); Absolute Eosinophils 0.3 10^3/uL (0-0.7); Absolute Immature Granulocytes 0.1 10^3/uL (0-0.05); Absolute Lymphocytes 56.3 10^3/uL (1.2-3.4); Absolute Monocytes 0.8 10^3/uL (0.1-0.6); Absolute Neutrophils 4.5 10^3/uL (1.4-6.5); Nucleated Red Blood Cells % 0 % (-)
--- NOTE | 2024-06-01 13:41 | PN.CDI ---
CDI
- -
CDI:
Physician Documentation Request
Admit Date: 05/27/24 14:56
Dear Doctor Mateo,
Patient admitted with pleural effusion.
Na levels documented below:
Laboratory Tests
05/27/24 05/28/24 05/30/24
12:22 06:14 06:06
Sodium 132 L 133 L 134 L
Based on the above, could you clarify in the progress notes, the appropriate diagnosis, if significant, that supports the above abnormalities and additional evaluation, monitoring and/or treatment rendered:
Hyponatremia
Insignificant abnormal lab findings
Other
Use of terms such as suspected, likely, concern for, or probable (associated with a specific diagnosis that is being evaluated, monitored, or treated as if it exists) are acceptable and can be coded in the inpatient setting, when documented at the
time of discharge.
Thank you,
Tish LAZARO,RN,CCDS
CDI Specialist
Available via tiger text
Please use your independent medical judgment in providing your response.
[2024-06-01 15:12] VITALS: BP 140/72
--- NOTE | 2024-06-01 15:17 | W.DCSUMMARY ---
Discharge Summary
Discharge Data
Date of Admission: 05/27/24
Date of Discharge: 06/01/24
-
Pending Results: No
Hospital Course
83-year-old male with CLL on Brukinsa, GERD/Ordonez's esophagus, restrictive lung disease, MVP, B12 deficiency, HTN, HLD, H/O recurrent malignant left-sided pleural effusions that presented to the ED with recurrent pleural effusion on the left side.
Chest tube was placed with adequate drainage. Fluid was noted to have bloody component, suspect a superimposed subacute hemothorax. Question whether Brukinsa was contributing as it hemorrhage is a potential side effect. Medication was held on
admission. Received tPA/dornase on 05/30/2024 with improved chest tube drainage following the procedure. On morning of 06/01/[address] thorax followed by chest tube removal. Follow-up x-ray showed no signs of complications. He was monitored
following removal and discharged after 4 hours when feeling well. Pleural cultures were negative for signs of infection while in the hospital. He completed 3-day course of azithromycin that was started prior to admission
He did have volatile blood counts with hemoglobin ranging from 7-9 over the hospitalization. Did have an episode of dizziness that was attributed to symptomatic anemia with hemoglobin of 7.4, received 1 unit PRBC. Subsequent hemoglobins were
improved though still volatile with baseline near 8.0. 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 Also had evidence of B12 deficiency and was given IM dosing in the hospital, transition to oral regimen
at discharge.
Low suspicion for hemolysis despite CLL diagnosis. Hemolytic markers were negative, hemoglobin was stable for most of the hospital stay despite chest tube and DVT prophylaxis
Discharge Plan
-
Patient Disposition: Home (Routine Discharge)
Discharge Diagnosis/Procedures: Malignant pleural effusion (left-sided)
Hemothorax (subacute, left-sided)
Status post chest tube
Condition: Good
Diet: No restrictions
Activity: As tolerated
Driving Restrictions: No driving for 24 hours
Bathing Restrictions: None
Blood Work: None
Others Tests: None
Activity Restrictions/Additional Instructions:
Following discharge from the hospital you should schedule an appointment with your primary care doctor for routine visit
You should also schedule follow-up appointment with your oncologist
Pulmonology referral has been provided, you will see them in the office in 2 to 4 weeks for a follow-up appointment
Instructions: Pleural effusion
Referrals:
Joe Oneill DO [Family Provider] -
Ceasar Rhodes MD [Active] - in two to four weeks
Additional Discharge Medication Instructions: Start ferrous sulfate 325 mg every other day
Start vitamin B12 500 mcg every day
Prescriptions:
New
ferrous sulfate [FeroSul] 325 mg (65 mg iron) Tablet
325 mg PO Q OTHER DAY 30 Days Qty: 15 0RF
cyanocobalamin (vitamin B-12) 500 mcg tablet
500 mcg PO DAILY 30 Days Qty: 30 0RF
Continued
atorvastatin 10 MG tablet
10 mg PO HS
tamsulosin 0.4 MG capsule
0.4 mg PO HS
levothyroxine 125 MCG tablet
125 mcg PO HS
omeprazole 20 MG tablet,disintegrat, delay rel
20 mg PO HS
metoprolol tartrate 25 mg Tablet
25 mg PO HS
PreserVision AREDS 4,296 mcg-226 mg-90 mg Capsule
1 cap PO HS
psyllium husk [Metamucil] 0.4 gram Capsule
0.4 g PO HSPRN PRN (Reason: constipation)
diphenhydramine-acetaminophen [Tylenol PM Extra Strength] 25-500 mg Tablet
1 tab PO HS PRN (Reason: sleep)
Held
Brukinsa 80 mg Capsule
160 mg PO BID
Hold Instructions: until you see your oncologist in the office
Discontinued
azithromycin [Zithromax Z-Dale] 250 mg Tablet
0 mg PO .COMPLEX
Patient Comments:
05/27/24: Patient still has 2 days left.
Rx Instructions:
For 250 mg dose pack: take 500 mg today (day 1), then 250 mg for 4 days (days 2-5)
Discharge Orders:
Discharge Patient (As Directed); Ordered 06/01/24
Ordered By: Buster Galindo
Discharge Date and Time
Print Language: KYRGYZ
[2024-06-02 10:32] LABS: Haptoglobin 387 mg/dL (30-200)
== END 2024-06-01 16:21 | disposition home or self-care (01) | DRG 841 ==
LOC: 3 WEST ACU 14:56
PROVIDERS: Internal Medicine Critical Care Medicine; Nurse Practitioner Acute Care; Radiology Diagnostic Radiology; Radiology Vascular & Interventional Radiology; ADMITTING PHYSICIAN Family Medicine; ATTENDING PHYSICIAN Internal Medicine; CONSULT PHYSICIAN Internal Medicine; EMERGENCY PHYSICIAN Emergency Medicine; FAMILY PHYSICIAN Internal Medicine; OTHER PHYSICIAN Internal Medicine Hematology & Oncology
PROC: 0W9B30Z Drainage of Left Pleural Cavity with Drainage Device, Percutaneous Approach (ICD-10-PCS; 2024-05-27)
PROC: 3E0L317 Introduction of Other Thrombolytic into Pleural Cavity, Percutaneous Approach (ICD-10-PCS; 2024-05-30)
PROC: 0WPB30Z Removal of Drainage Device from Left Pleural Cavity, Percutaneous Approach (ICD-10-PCS; 2024-05-31)
DX: C91.10 Chronic lymphocytic leukemia of B-cell type not having achieved remission (principal); D62 Acute posthemorrhagic anemia; J91.0 Malignant pleural effusion; J94.2 Hemothorax; T85.628A Displacement of other specified internal prosthetic devices, implants and grafts, initial encounter; D50.9 Iron deficiency anemia, unspecified; E03.9 Hypothyroidism, unspecified; I10 Essential (primary) hypertension; I34.1 Nonrheumatic mitral (valve) prolapse; J45.991 Cough variant asthma; Y82.8 Other medical devices associated with adverse incidents; E53.8 Deficiency of other specified B group vitamins; E78.00 Pure hypercholesterolemia, unspecified; J98.4 Other disorders of lung; K21.9 Gastro-esophageal reflux disease without esophagitis; K22.70 Barrett's esophagus without dysplasia; K44.9 Diaphragmatic hernia without obstruction or gangrene; K57.30 Diverticulosis of large intestine without perforation or abscess without bleeding; K59.00 Constipation, unspecified; M19.90 Unspecified osteoarthritis, unspecified site; N40.0 Benign prostatic hyperplasia without lower urinary tract symptoms; R50.9 Fever, unspecified; Z79.890 Hormone replacement therapy; Z79.899 Other long term (current) drug therapy; Z96.612 Presence of left artificial shoulder joint; Z96.643 Presence of artificial hip joint, bilateral
CPT/HCPCS: 32557; 71045; 71260; 80048; 80053; 82248; 82607; 82728; 83010; 83540; 83550; 83615; 83735; 84100; 85014; 85025; 85027; 85045; 85610; 85730; 86850; 86880; 86900; 86901; 86920; 87015; 87070; 87075; 87205; 89051; 99152; 99153; 99284; C1729; C1769; J2997; P9016; Q9967

== ENCOUNTER 2024-06-03 06:32 | Inpatient (IN) | payer OTHER, SELFPAY ==
[2024-06-03] VITALS (15 sets, daily range): BP systolic 160–200; BP diastolic 62–95; PULSE 95–104; O2SAT 97; BMI 22.2; BMI 20.6
--- NOTE | 2024-06-03 02:01 | ED.GENMED ---
History of Present Illness
General
Chief Complaint: Abdominal Pain
Source: patient
Exam Limitations: none
Time Seen by Provider: 06/03/24 01:56
Nursing documentation reviewed up to this point in time: agreed with
History of Present Illness
History of Present Illness:
Pleasant 83-year-old male history of CML presents with generalized abdominal pain. Patient has had pleural effusions and had a recent admission discharged after having a chest tube placed. After chest tube was removed, there was a possibility of
trapped lung. Patient has required extensive pain medications prior to arrival. Patient had a squeezing chest pain around his chest and epigastrium. He denies fever, cough, shortness of breath. Patient had oxycodone at home but pain was not
relieved by it.
Phy Exam
General Physical Exam
General Presentation: well appearing and no apparent distress
General Skin: warm and dry
General Habitus: normal
General Mental: alert
General Hydration: appears well hydrated
ENT Exam
ENT Exam: EOMI, pharynx normal, neck supple and normocephalic
Eye Exam
Eye Exam: PERRL, cornea clear and conjunctiva normal
Cardiovascular Exam
Cardiovascular Exam: regular rate/rhythm, no edema, no murmur and normal peripheral pulses
Pulmonary Exam
Pulmonary Exam: lungs clear, no respiratory distress, no rales, no crackles, no rhonchi, no stridor, no wheezing and no cough
Gastrointestinal Exam
Gastrointestinal Exam: normal bowel sounds, non tender, soft, no organomegaly, no pulsatile mass and non distended
Neurological Exam
Neurological Exam: alert, oriented x3, no motor deficits and speech normal
Musculoskeletal Exam
Musculoskeletal Exam: full ROM and no edema
Skin Exam
Skin Exam: normal color, warm/dry, no rash and no petechia
Psychiatric Exam
Psychiatric Exam: normal mood/affect
Course
Orders/Labs/Results
Orders:
Orders
06/03/24 02:09
Cardiac Monitoring- Treatment ONCE
06/03/24 02:10
Electrocardiogram (*1) Urgent
Reason for Study: Abdominal Pain
EKG- Treatment ONCE
06/03/24 02:11
Complete Blood Count/With Diff Urgent
Comprehensive Metabolic Panel Urgent
Lipase Urgent
Comment: ADD ON
06/03/24 02:18
Add On- LAB Urgent
Tests Added?: lipase
06/03/24 02:31
Ondansetron Injectable [Zofran] 4 mg IV NOW STA
06/03/24 02:35
HYDROmorphone [Dilaudid] 0.5 mg IV NOW STA
06/03/24 02:39
Abdomen/Pelvis w Contrast CT [CT Abd/pelvis W Iv Cont] Urgent
Comment:
Reason For Exam: R/O cholecystitis
06/03/24 02:53
Lactic Acid Urgent
Troponin I Urgent
06/03/24 04:52
CR Chest - 2 Views Urgent
Comment:
Reason For Exam: lower chest pain
06/03/24 05:27
HYDROmorphone [Dilaudid] 0.5 mg IV NOW STA
06/03/24 Breakfast
NPO
Allow oral meds: Yes
Allow clear liquids: Sips of Clears
06/03/24 06:20
Admit/Transfer Patient As Directed
Co-Sign Provider:
Level of Care: Inpatient admission
Assign to:: Telemetry
Physician / Group: Ricardo
Diagnosis: Chest Pain, Pleural Effusion, CLL
Reason for Telemetry: Chest Pain syndromes
Date to Stop Telemetry: 06/05/24
Time to Stop Telemetry: 11:00
Reason for Hospitalization: Chest Pain, Pleural Effusion, CLL
Expected length of stay greater than two midnights?: Yes
ELOS- Estimated Length of Stay in days: 3
I certify the patient meets the requirements for IP care: Yes
PRN Pain Medication Management As Directed
May give lesser potent ordered pain med per pt: Yes
preference::
Protocol:: Medication orders for pain may be administered in a
manner that supports deferring to patient preference
when the pt is:
- Requesting an ordered lesser potent pain medication.
Least to most potent pain medications are defined
as: acetaminophen < NSAID < tramadol < opioids
(morphine, oxycodone, hydromorphone).
- Requesting a lesser dose of the same medication IF
ORDERED.
- Requesting a less intrusive route of administration
if both routes are prescribed by the provider (PO <
IV).
06/03/24 06:21
Code Status As Directed
Resuscitation Status: Full Code
06/03/24 08:40
Acetaminophen [Tylenol] 650 mg PO Q4HPRN PRN
HYDROmorphone [Dilaudid] 0.5 mg IV Q4HPRN PRN
Ketorolac [Toradol] 15 mg IV Q6HPRN PRN
06/03/24 08:40
Consult Notification Routine
Specialty to Notify: Oncology
Date consulting provider notified: 06/03/24
Time consulting provider notified: 08:55
Notified:: Provider
Comment: tt
Consult Notification Routine
Specialty to Notify: Pulmonary
Date consulting provider notified: 06/03/24
Time consulting provider notified: 08:58
Notified:: Provider
Comment: tt
ONCOLOGY CONSULT Routine
Consulting Provider: Buster Domingo
Was physician already notified: No
Reason for consult: Chest Pain, Pleural Effusion, CLL
PULMONARY CONSULT Routine
Consulting Provider: Claudio Johansen
Was physician already notified: No
Reason for consult: Chest Pain, Pleural Effusion, CLL
Activity As Directed
Activity Level: Ambulate
With Assistance
EKG with chest pain [ECG as needed] As Directed
ECG as needed for:: Chest Pain
I/O [Intake/ Output] As Directed
Frequency: Per unit guidelines
Pneumatic Compression Sleeves As Directed
Type: Knee high
Vital Signs As Directed
Frequency: Per unit guidelines
Weight As Directed
Frequency: Daily
Oxygen Therapy [O2 Therapy] [RESP] Routine
Titrate/Wean O2 to maintain O2 sat greater than (%): 94
Ot Eval And Treat Routine
PT Consult [Pt Eval And Treat] Routine
Activity Level: Ambulate
With Assistance
DX Deep Vein Thrombosis Video Routine
06/03/24 08:52
Troponin I Q6H
06/03/24 17:23
Troponin I Q6H
06/03/24 22:00
Levothyroxine [Synthroid] 125 mcg PO HS
Metoprolol [Lopressor] 25 mg PO HS
Pantoprazole [Protonix] 40 mg PO HS
Tamsulosin [Flomax] 0.4 mg PO HS
06/04/24 04:37
Basic Metabolic Panel IN AM
Complete Blood Count/No Diff IN AM
06/04/24 06:00
EKG [Electrocardiogram (*1)] IN AM
Reason for Study: Chest Pain
06/05/24 11:00
DC Protocol for Telemetry ONCE
Abnormal Lab Results
06/03/24
02:11
WBC 80.2 H* 10^3/uL
(4.8-10.8)
RBC 3.38 L 10^6/uL
(4.70-6.10)
Hgb 7.7 L g/dL
(13.0-18.0)
Hct 25.2 L %
(39.0-52.0)
MCV 74.6 L fL
(80.0-94.0)
MCH 22.8 L pg
(27.0-31.0)
MCHC 30.6 L g/dL
(33.0-37.0)
RDW 16.5 H %
(11.5-14.5)
Plt Count 450 H 10^3/uL
(130-400)
Abs Immat Gran (auto) 0.3 H 10^3/uL
(0-0.05)
Absolute Neuts (auto) 10.3 H 10^3/uL
(1.4-6.5)
Absolute Lymphs (auto) 68.8 H 10^3/uL
(1.2-3.4)
Absolute Monos (auto) 0.8 H 10^3/uL
(0.1-0.6)
Neutrophils % 12.9 L %
(42.2-75.2)
Lymphocytes % 85.7 H %
(20.5-51.1)
Monocytes % 1.0 L %
(1.7-9.3)
Sodium 130 L mmol/L
(135-145)
Chloride 94 L mmol/L
(98-107)
Carbon Dioxide 20 L mmol/L
(22-30)
Creatinine 0.6 L mg/dL
(0.7-1.3)
Glucose 205 H mg/dl
(70-99)
Total Protein 5.8 L g/dl
(6.3-8.2)
06/03/24 02:11
06/03/24 02:11
Vital Signs
Initial and Last Documented VS:
Initial Vital Signs
BP
176/82
06/03/24 02:00
Last Documented Vital Signs
Temp Pulse Resp BP Pulse Ox
98.9 F 135 20 128/71 92
06/05/24 19:55 06/05/24 20:49 06/05/24 19:02 06/05/24 19:09 06/05/24 19:02
*Critical Care Note
Total Time (30-74mins, 75-104mins- exclusive of procedures): Not Applicable
Update Note
Update Note:
CT abdomen and pelvis with IV contrast
IMPRESSION:
Chronic-appearing left pleural effusion with pleural thickening, cannot exclude infection/empyema. Subcutaneous emphysema with multiple foci of air in the pleural space, new relative to previous CT 03/23/2024. Correlate with patient history for
recent procedure.
No cholecystitis or pancreatitis. Calcified splenic granulomas. No bowel obstruction. No obstructing renal stone. Abdominal aorta is of normal caliber. Status post bilateral total hip arthroplasties.
Large left pleural effusion seen on cxr
Discussed CAT scan findings and laboratory results with family are in agreement to admit patient.
ED Attending Note
-
Portions of this chart may have been created with voice recognition software.� Occasional wrong word or��sound alike� substitutions may have occurred due to the inherent limitations of voice recognition software.
Discharge Plan
Departure
Patient Disposition: Admit
Date of Disposition: 06/03/24
Time of Disposition: 05:12
Admit to: Telemetry
Presentation/result/management discussed w/ accepting MD/DO: Hospitalist
Condition: Serious
Discharge Problem:
Pleural cavity effusion, Malignant pleural effusion, THOMAS (dyspnea on exertion), CLL (chronic lymphocytic leukemia)
Interventions
Interventions:
*Risk Screen - Suicide Last Done: 06/03/24 02:01
*General Assessment Last Done: 06/03/24 02:01
*Neglect/Abuse Screening Last Done: 06/03/24 02:01
ED- Fall Risk Assessment Last Done: 06/03/24 02:01
*ED COVID-19 Vaccine History Last Done: 06/03/24 02:01
*Nursing Disposition Last Done: 06/03/24 08:35
ZM-Diuski-Vylawuizzs Assessment Last Done: 06/03/24 02:14
Discharge Date and Time
Discharge Date/Time: 06/03/24 08:36
--- NOTE | 2024-06-03 02:23 | ED.GENMED ---
History of Present Illness
General
Chief Complaint: Abdominal Pain
Source: patient, spouse and family (daughter)
Exam Limitations: none
Time Seen by Provider: 06/03/24 01:56
Nursing documentation reviewed up to this point in time: agreed with
History of Present Illness
History of Present Illness:
Pt is an 83 y/o M with pmhx of CLL , hypothyroidism, and GERD presents with complaints of mid back and upper abdominal pain x7 hrs. The pt was brought to the ED via EMS and was given Zofran and Fentanyl. Pain is described as a constant cramping
sensation and is rated an 8-9/10 in severity. Course of pain is worsening. He has tried Advil, Ibuprofen, and 2x Oxycodone without relief. Upon interview, the pt was in obvious discomfort and was colicky. There is an associated cough, nausea and
constipation. Denies chest pain, respiratory distress, vomiting, diarrhea, numbness, tingling, changes in urination.
The pt is s/p left chest tube for left hemothorax on 05/28/24.
Past History
Past History
ED Past Medical History: Cancer (CLL), GERD and Hypothyroidism
ED Past Surgical History: Other (Hernia, hemorrhoids, B/L hip replacements, B/L shoulder replacements, thoracentesis, chest tube placement/removal)
Social History
Tobacco: Non-smoker
Alcohol: Daily
Drug: None
Personal:
Living: with family
Employment: Retired
Review of Systems
Review of Systems
Allergies reviewed?: Yes
Constitutional: Reports sleep disturbance
EENT: Reports no symptoms
Respiratory: Reports cough
Cardiac: Reports no symptoms
ABD/GI: Reports abdominal pain and nausea
: Reports no symptoms
Musculoskeletal: Reports back pain
Skin: Reports no symptoms
Neurological: Reports no symptoms
Endocrine: Reports no symptoms
Hematologic/Lymphatic: Reports no symptoms
Psychiatric: Reports no symptoms
Phy Exam
General Physical Exam
General Presentation: well appearing and moderate distress
General age: appears stated age
General Skin: warm and dry
General Habitus: normal
General Mental: alert
General Hydration: appears well hydrated
ENT Exam
ENT Exam: neck supple
Eye Exam
Eye Exam: cornea clear and conjunctiva normal
Cardiovascular Exam
Cardiovascular Exam: regular rate/rhythm
Pulmonary Exam
Pulmonary Exam: no respiratory distress
Gastrointestinal Exam
Gastrointestinal Exam: normal bowel sounds, non distended, guarding, no indwelling devices and surgical scar (Left sided chest tube scar)
Palpation: left upper quadrant: Moderate tenderness, left lower quadrant: No tenderness, right upper quadrant: Moderate tenderness and right lower quadrant: No tenderness
Neurological Exam
Neurological Exam: alert, oriented x3, no motor deficits, no sensory deficits and speech normal
Musculoskeletal Exam
Musculoskeletal Exam: full ROM, back pain, no edema and neuro vasc intact
Skin Exam
Skin Exam: normal color and warm/dry
Psychiatric Exam
Psychiatric Exam: normal mood/affect
Course
Orders/Labs/Results
Orders:
Orders
06/03/24 02:09
Cardiac Monitoring- Treatment ONCE
06/03/24 02:10
Electrocardiogram (*1) Urgent
Reason for Study: Abdominal Pain
EKG- Treatment ONCE
06/03/24 02:11
Complete Blood Count/With Diff Urgent
Comprehensive Metabolic Panel Urgent
Lipase Urgent
Comment: ADD ON
06/03/24 02:18
Add On- LAB Urgent
Tests Added?: lipase
06/03/24 02:31
Ondansetron Injectable [Zofran] 4 mg IV NOW STA
06/03/24 02:35
HYDROmorphone [Dilaudid] 0.5 mg IV NOW STA
06/03/24 02:39
Abdomen/Pelvis w Contrast CT [CT Abd/pelvis W Iv Cont] Urgent
Comment:
Reason For Exam: R/O cholecystitis
06/03/24 02:53
Lactic Acid Urgent
Troponin I Urgent
06/03/24 04:52
CR Chest - 2 Views Urgent
Comment:
Reason For Exam: lower chest pain
06/03/24 05:27
HYDROmorphone [Dilaudid] 0.5 mg IV NOW STA
06/03/24 Breakfast
NPO
Allow oral meds: Yes
Allow clear liquids: Sips of Clears
06/03/24 06:20
Admit/Transfer Patient As Directed
Co-Sign Provider:
Level of Care: Inpatient admission
Assign to:: Telemetry
Physician / Group: Ricardo
Diagnosis: Chest Pain, Pleural Effusion, CLL
Reason for Telemetry: Chest Pain syndromes
Date to Stop Telemetry: 06/05/24
Time to Stop Telemetry: 11:00
Reason for Hospitalization: Chest Pain, Pleural Effusion, CLL
Expected length of stay greater than two midnights?: Yes
ELOS- Estimated Length of Stay in days: 3
I certify the patient meets the requirements for IP care: Yes
PRN Pain Medication Management As Directed
May give lesser potent ordered pain med per pt: Yes
preference::
Protocol:: Medication orders for pain may be administered in a
manner that supports deferring to patient preference
when the pt is:
- Requesting an ordered lesser potent pain medication.
Least to most potent pain medications are defined
as: acetaminophen < NSAID < tramadol < opioids
(morphine, oxycodone, hydromorphone).
- Requesting a lesser dose of the same medication IF
ORDERED.
- Requesting a less intrusive route of administration
if both routes are prescribed by the provider (PO <
IV).
06/03/24 06:21
Code Status As Directed
Resuscitation Status: Full Code
06/03/24 08:40
Acetaminophen [Tylenol] 650 mg PO Q4HPRN PRN
HYDROmorphone [Dilaudid] 0.5 mg IV Q4HPRN PRN
Ketorolac [Toradol] 15 mg IV Q6HPRN PRN
06/03/24 08:40
Consult Notification Routine
Specialty to Notify: Oncology
Date consulting provider notified: 06/03/24
Time consulting provider notified: 08:55
Notified:: Provider
Comment: tt
Consult Notification Routine
Specialty to Notify: Pulmonary
Date consulting provider notified: 06/03/24
Time consulting provider notified: 08:58
Notified:: Provider
Comment: tt
ONCOLOGY CONSULT Routine
Consulting Provider: Buster Domingo
Was physician already notified: No
Reason for consult: Chest Pain, Pleural Effusion, CLL
PULMONARY CONSULT Routine
Consulting Provider: Claudio Johansen
Was physician already notified: No
Reason for consult: Chest Pain, Pleural Effusion, CLL
Activity As Directed
Activity Level: Ambulate
With Assistance
EKG with chest pain [ECG as needed] As Directed
ECG as needed for:: Chest Pain
I/O [Intake/ Output] As Directed
Frequency: Per unit guidelines
Pneumatic Compression Sleeves As Directed
Type: Knee high
Vital Signs As Directed
Frequency: Per unit guidelines
Weight As Directed
Frequency: Daily
Oxygen Therapy [O2 Therapy] [RESP] Routine
Titrate/Wean O2 to maintain O2 sat greater than (%): 94
Ot Eval And Treat Routine
PT Consult [Pt Eval And Treat] Routine
Activity Level: Ambulate
With Assistance
DX Deep Vein Thrombosis Video Routine
06/03/24 08:52
Troponin I Q6H
06/03/24 17:23
Troponin I Q6H
06/03/24 22:00
Levothyroxine [Synthroid] 125 mcg PO HS
Metoprolol [Lopressor] 25 mg PO HS
Pantoprazole [Protonix] 40 mg PO HS
Tamsulosin [Flomax] 0.4 mg PO HS
06/04/24 04:37
Basic Metabolic Panel IN AM
Complete Blood Count/No Diff IN AM
06/04/24 06:00
EKG [Electrocardiogram (*1)] IN AM
Reason for Study: Chest Pain
06/05/24 11:00
DC Protocol for Telemetry ONCE
Abnormal Lab Results
06/03/24
02:11
WBC 80.2 H* 10^3/uL
(4.8-10.8)
RBC 3.38 L 10^6/uL
(4.70-6.10)
Hgb 7.7 L g/dL
(13.0-18.0)
Hct 25.2 L %
(39.0-52.0)
MCV 74.6 L fL
(80.0-94.0)
MCH 22.8 L pg
(27.0-31.0)
MCHC 30.6 L g/dL
(33.0-37.0)
RDW 16.5 H %
(11.5-14.5)
Plt Count 450 H 10^3/uL
(130-400)
Abs Immat Gran (auto) 0.3 H 10^3/uL
(0-0.05)
Absolute Neuts (auto) 10.3 H 10^3/uL
(1.4-6.5)
Absolute Lymphs (auto) 68.8 H 10^3/uL
(1.2-3.4)
Absolute Monos (auto) 0.8 H 10^3/uL
(0.1-0.6)
Neutrophils % 12.9 L %
(42.2-75.2)
Lymphocytes % 85.7 H %
(20.5-51.1)
Monocytes % 1.0 L %
(1.7-9.3)
Sodium 130 L mmol/L
(135-145)
Chloride 94 L mmol/L
(98-107)
Carbon Dioxide 20 L mmol/L
(22-30)
Creatinine 0.6 L mg/dL
(0.7-1.3)
Glucose 205 H mg/dl
(70-99)
Total Protein 5.8 L g/dl
(6.3-8.2)
06/03/24 02:11
06/03/24 02:11
Vital Signs
Initial and Last Documented VS:
Initial Vital Signs
BP
176/82
06/03/24 02:00
Last Documented Vital Signs
Temp Pulse Resp BP Pulse Ox
98.2 F 95 16 133/72 96
06/06/24 03:17 06/06/24 03:17 06/06/24 03:17 06/06/24 03:17 06/06/24 03:17
MDM/Problems Addressed
Differential Diagnosis Includes:
Cholecystitis
gastritis
back strain
*Critical Care Note
Total Time (30-74mins, 75-104mins- exclusive of procedures): Not Applicable
ED Attending Note
-
Portions of this chart may have been created with voice recognition software.� Occasional wrong word or��sound alike� substitutions may have occurred due to the inherent limitations of voice recognition software.
Discharge Plan
Departure
Patient Disposition: Admit
Date of Disposition: 06/03/24
Time of Disposition: 05:12
Admit to: Telemetry
Presentation/result/management discussed w/ accepting MD/DO: Hospitalist
Condition: Serious
Discharge Problem:
Pleural cavity effusion, Malignant pleural effusion, THOMAS (dyspnea on exertion), CLL (chronic lymphocytic leukemia)
Interventions
Interventions:
*Risk Screen - Suicide Last Done: 06/03/24 02:01
*General Assessment Last Done: 06/03/24 02:01
*Neglect/Abuse Screening Last Done: 06/03/24 02:01
ED- Fall Risk Assessment Last Done: 06/03/24 02:01
*ED COVID-19 Vaccine History Last Done: 06/03/24 02:01
*Nursing Disposition Last Done: 06/03/24 08:35
CZ-Spavdg-Rcggycsrrj Assessment Last Done: 06/03/24 02:14
Discharge Date and Time
Discharge Date/Time: 06/03/24 08:36
[2024-06-03] MEDS: ZOFRAN 4 MG IV ×3 (02:41→19:59)
[2024-06-03] MEDS: DILAUDID 0.5 MG IV ×5 (02:41→20:00)
[2024-06-03 02:42] LABS: Hematocrit 25.2 % (39.0-52.0); Hemoglobin 7.7 g/dL (13.0-18.0); Mean Corp Hgb Conc. 30.6 g/dL (33.0-37.0); Mean Corpuscular Hgb 22.8 pg (27.0-31.0); Mean Corpuscular Volume 74.6 fL (80.0-94.0); Platelet Count 450 10^3/uL (130-400); Red Blood Cell Count 3.38 10^6/uL (4.70-6.10); Red Cell Dist. Width 16.5 % (11.5-14.5); White Blood Cell Count 80.2 10^3/uL (4.8-10.8)
[2024-06-03 02:46] LABS: ALT (SGPT) 45 U/L (0-50); AST (SGOT) 34 U/L (17-59); Albumin 3.5 g/dl (3.5-5.0); Alkaline Phosphatase 120 U/L (38-126); Blood Urea Nitrogen 19 mg/dl (9-20); Calcium 9.4 mg/dl (8.4-10.2); Carbon Dioxide 20 mmol/L (22-30); Chloride 94 mmol/L (98-107); Estimated Creatinine Clearance 96 ml/min; Glucose 205 mg/dl (70-99); Potassium 4.1 mmol/L (3.5-5.1); Sodium 130 mmol/L (135-145); Total Bilirubin 0.5 mg/dl (0.2-1.3); Total Protein 5.8 g/dl (6.3-8.2); eGFR > 60.00
[2024-06-03 02:51] LABS: Lipase 33 U/L (23-300)
[2024-06-03 03:17] LABS: Lactic Acid 1.7 mmol/L (0.7-2.0)
[2024-06-03 03:29] LABS: Troponin I < 0.012 ng/ml
[2024-06-03 03:38] LABS: Anisocytosis 1+; Normal RBC Morphology No
[2024-06-03 03:40] LABS: Hypersegmented Neutrophil 1+; Hypochromasia OCC; Ovalocytes 1+; Polychromasia Occasional; Target Cells Occasional; Tear Drop Red Blood Cells Occasional
[2024-06-03 03:43] LABS: % Immature Granulocytes 0.4 % (0-0.5); % Lymphocytes 85.7 % (20.5-51.1); % Neutrophils 12.9 % (42.2-75.2); Absolute Immature Granulocytes 0.3 10^3/uL (0-0.05); Absolute Lymphocytes 68.8 10^3/uL (1.2-3.4); Absolute Monocytes 0.8 10^3/uL (0.1-0.6); Absolute Neutrophils 10.3 10^3/uL (1.4-6.5); Nucleated Red Blood Cells % 0 % (-)
--- NOTE | 2024-06-03 06:31 | HPS.HSE ---
Family Physician
-
Family Physician: Joe Oneill
Chief Complaint
-
Chest Pain / Abdominal Pain
History of Present Illness
Patient is an 83y M with PMH significant for CLL, GERD and recent admission(s) for recurrent / malignant L pleural effusion who presents to ED complaining of chest pain / abdominal pain. Patient states that he has had similar symptoms since his
recent admission. He describes the pain as a 'squeezing' or band-like sensation around the lower chest or upper abdomen. Pain is not unilateral. Pain is associated with mild nausea, no emesis. No cough or SOB. His pain became much worse in the
past 24 hours and was not relived by oxycodone at home. He presented to the ED for further evaluation and treatment.
Patient was last admitted 05/27 - 06/01 for recurrent L pleural effusion. He had chest tube placed / lytic therapy for septated hemothorax.
Chest tube was removed on 06/01 and post-removal films make note of air in the pleural space consistent with trapped lung.
Patient initially noted to have effusion in February 2024. Has had thoracentesis in February consistent with CLL / malignant effusion. Repeat thoracentesis in May yielded only 100cc of bloody fluid - patient admitted for chest tube / lytic therapy.
Medical History
Past Medical History
Past Medical History: Reports Other (Malignant left pleural effusion, chronic lymphocytic leukemia, cough variant asthma, restrictive lung disease, gastroesophageal reflux disease, Ordonez's esophagus, hiatal hernia, mitral valve prolapse,
hypertension, hyperlipidemia, constipation, vitamin B12 deficiency, diverticulosis,osteoarthritis)
Past Surgical History: Reports Other (Bilateral hip replacement, left shoulder replacement, hernia repair, hemorrhoid surgery, arthroscopic knee surgery, hemorrhoid surgery)
Social History
Tobacco: Non-smoker
Alcohol: Daily
Drug: None
Personal:
Living: With Family
Family History
Family History: Other (Mother had ovarian cancer, sibling has Parkinson's disease)
Allergies / Home Medications
Allergies reflects when Allergies were last updated in [facility].
Home Medications with original date entered in [facility]
Allergy/Medication List:
Allergies
Allergy/AdvReac Type Severity Reaction Status Date / Time
Sulfa (Sulfonamide Allergy Swelling Verified 06/03/24 01:59
Antibiotics)
sulfamethoxazole Allergy Swelling Verified 06/03/24 01:59
Home Medications
atorvastatin 10 mg tablet 10 mg PO HS High Cholesterol 05/27/21
levothyroxine 125 mcg tablet 125 mcg PO HS Thyroid 05/27/21
omeprazole 20 mg delayed release,disintegrating tablet 20 mg PO HS Gastrointestinal Issue 05/27/21
tamsulosin 0.4 mg capsule 0.4 mg PO HS Urinary Issue 05/27/21
metoprolol tartrate 25 mg tablet 25 mg PO HS Blood Pressure 05/27/24
psyllium husk 0.4 gram capsule (Metamucil) 0.4 g PO HSPRN PRN constipation 05/27/24
vitamins A,C,C-wgov-tounfb 4,296 mcg-226 mg-90 mg capsule (PreserVision AREDS) 1 cap PO HS Supplement 05/27/24
diphenhydramine 25 mg-acetaminophen 500 mg tablet (Tylenol PM Extra Strength) 1 tab PO HS PRN sleep 05/28/24
cyanocobalamin (vitamin B-12) 500 mcg tablet 500 mcg PO DAILY Supplement 1 month #30 tabs 06/01/24
ferrous sulfate 325 mg (65 mg iron) tablet (FeroSul) 325 mg PO Q OTHER DAY Supplement 1 month #15 tabs 06/01/24
Review of Systems
-
History Source: Patient
A 12 point ROS was completed and negative except as noted: Yes
Constitutional: Reports Fatigue; Denies Fever or Chills
EENT: Denies Sore Throat
Respiratory: Denies Cough or Trouble Breathing
Cardiac: Reports Chest Pain; Denies Diaphoresis, Palpitations or Syncope
Abdomen/GI: Reports Abdominal Pain and Nausea; Denies Vomiting, Diarrhea, Constipated, Bloody Stools or Black Stools
: Denies Dysuria or Frequency
Musculoskeletal: Denies Joint Pain or Edema
Neurological: Denies Dizzy or Headache
Psych: Denies Depression or Anxiety
Physical Exam
Vital Signs
Vital Signs
Temp Pulse Resp BP Pulse Ox
98.3 F 97 16 164/70 95
06/03/24 03:46 06/03/24 06:00 06/03/24 06:00 06/03/24 05:51 06/03/24 06:00
Physical Exam
General: Other (83y M in no acute distress.)
HEENT: Moist mucous membranes and PERRLA
Respiratory: Other (Decreased BS at L base with few associated rales. No wheeze / rhonchi. Prior CT site well-appearing.)
Cardiac: S1/S2 and Regular Rhythm; No Murmur
GI: Soft, Non Tender, Non Distended and Normal Bowel Sounds
Musculoskeletal: No Clubbing, No Cyanosis and No Edema
Neuro: AO x 3
Laboratory Results
-
06/03/24 02:11
06/03/24 02:11
Laboratory Results
Lactic Acid 1.7 mmol/L (0.7-2.0) 06/03/24 02:53
Total Bilirubin 0.5 mg/dl (0.2-1.3) 06/03/24 02:11
AST 34 U/L (17-59) 06/03/24 02:11
ALT 45 U/L (0-50) 06/03/24 02:11
Alkaline Phosphatase 120 U/L (38-126) 06/03/24 02:11
Troponin I < 0.012 ng/ml 06/03/24 02:53
Lipase 33 U/L (23-300) 06/03/24 02:11
Impression/Plan
-
A/P: Patient is an 83y M with PMH significant fro CLL and L pleural effusion who presents to ED complaining of chest pain / abdominal pain.
Chest Pain / Abdominal Pain
- Admit for further evaluation and treatment.
- ? related to L pleural effusion (see below) but pain is bilateral / circumferential in nature and not unilateral.
- Supportive care with pain control.
- CT imaging done in the ED without other evident etiology of pain.
- Oncology evaluation for additional recommendations.
- Follow for any new / worsening symptoms.
Recurrent Left Pleural Effusion
- Initially noted to be malignant effusion (February) and then complex / chronic hemothorax (May).
- Imaging now shows fluid reaccumulation since last study. Note presence of air consistent with trapped lung / lack of expansion post fluid removal.
- Could consider Pleurx, etc; however, not clear that further drainage would be of benefit if lung fails to expand.
- Pulmonary consulted for additional recommendations.
CLL
- WBC generally 60-70k. Was 80k on recent admission as well.
- Afebrile, non-toxic appearance.
- Observe off of any abx for now. Follow temperature curve.
- Oncology evaluation as noted above.
- Patient stopped Brukinsa on recent admission and remains off of this due to risk of hemorrhage / bleeding.
Microcytic Anemia - Chronic
- Stable. Hgb is at / near recent baseline.
- Suspect due to / related to CLL.
- Follow H&H for any changes. Did receive 1 unit of PRBCs during recent admission.
Hyponatremia
- Na = 130. Prior history of mild hyponatremia.
- Fluid restriction for now.
- Consider trial of Lasix dose if no improvement in Na levels.
BPH
- Stable. Continue tamsulosin.
DVT Prophylaxis: SCDs
Code Status: Full
--- NOTE | 2024-06-03 09:28 | CON.PUL ---
Addendum entered and electronically signed by Brendan Wong MD 06/03/24 21:06:
IF pain still not controlled with multimodal approach, consider trial of steroids in event that pleurisy is causing patient's symptoms.
Original Note:
Consultation
Consultation Request
Date/Time Consultation Requested: 06/03/2024839
Date/Time Consultation Performed: 06/03/2024917
Requesting Provider: Dr. Silva
Performing Provider: Dr. Wong
Reason for Consultation: Chest pain/L pleural effusion
Medical History
-
Chief Complaint: Back pain + abdominal pain
History of Present Illness:
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
COVID-19 (August 2023) and chronic cough/cough variant asthma who presents from home with mid back pain + generalized abdominal pain. Patient recently hospitalized from 05/27 - 06/01/2024 after presenting with shortness of breath. He also had
acute anemia and left-sided pleural effusion requiring a chest tube. He also underwent lytic therapy both on 05/27+ 05/29/2024. Pleural fluid studies from 05/27/2024 was consistent with a hemothorax given hematocrit was 23.3%. CT chest on the day of
discharge on 06/01/2024 showed a small left lower lobe loculated effusion with air bubbles seen. He was discharged home with instructions to follow-up with pulmonary and his PCP as well as oncology. He is now coming back with chest pain/abdominal
pain. Symptoms are similar to his last admission prior to arrival. He feels like a squeezing sensation around his lower chest/upper abdomen. It is associated with nausea. No shortness of breath or cough reported. In the ER he was afebrile to
97.6 �F, pulse rate 89, breathing at 19 breaths minute, BP elevated at 176/82 and saturating 97% on room air. Labs showed severe leukocytosis to 80.2, anemia to 7.7, sodium 130, glucose 205, and negative troponin at <0.012. CT abdomen/pelvis with
IV contrast showed a small left-sided pleural effusion with pleural thickening and bubbles of air in the pleural space. There was no intestinal obstruction or free air. He was given pain medications in the ER with Dilaudid 0.5 mg IVP X1 as well as
Zofran, and admitted to the hospitalist service. Pulmonary now consulted for additional management/recommendations.
When I saw the patient, his , Susannah, and daughter, Rebeka, were at bedside. All questions were answered. The patient was a lethargic after having thoracentesis today. According to the patient's daughter, she had no idea that her father had
leukemia and just learned about that last night. She also says that her mother, Susannah, has been having memory issues lately and is very overwhelmed from [place] poor health. Her father also has been feeling more weak lately and feels that he is
losing weight. According to the family, the patient was doing relatively okay after his discharge a few days ago, and then last night while he was sitting on the recliner he had sudden severe pain on his left back/flank and that that is what
brought him into the ER. He currently still feels this discomfort and says that he had it last hospitalization as well. He currently denies upper chest pain, upper back pain, lower abdominal pain, nausea, fevers or chills
PMHx: CLL, allergic rhinitis, restrictive lung disease, GERD, diastolic function, MVP, hypertension, hypothyroidism, chronic cough/cough variant asthma, chronic left-sided malignant pleural effusion s/p thoracentesis, Ordonez's esophagus, colonic
polyps, history of rosacea, diverticulosis, atopy, history of COVID-19 (08/2023), hiatal hernia, external hemorrhoids
PSHx: Left shoulder replacement, hernia repair x 2, left + right hip replacement, hemorrhoid surgery, knee surgery, complete shoulder replacement, hip replacement, teeth extraction,
Past Medical History
Past Medical History: Other (Above as per HPI)
Past Surgical History: Other (Above as per HPI)
Social History
Tobacco: Former Smoker (Smoked 1 PPD X 10 years, quit about 40 years ago)
Alcohol: Daily (Few beers a day)
Drug: None
Personal:
Living: With Family
Family History
Family History: Cancer (Mother: Ovarian cancer) and Other (Sister: Parkinson's disease)
Allergies / Home Medications
Allergies
Allergy/AdvReac Type Severity Reaction Status Date / Time
Sulfa (Sulfonamide Allergy Swelling Verified 06/03/24 01:59
Antibiotics)
sulfamethoxazole Allergy Swelling Verified 06/03/24 01:59
Home Medications
�Medication �Instructions �Recorded �Confirmed �Last Taken �Type
atorvastatin 10 mg tablet 10 mg PO HS High Cholesterol 05/27/21 06/03/24 05/26/24 History
levothyroxine 125 mcg tablet 125 mcg PO HS Thyroid 05/27/21 06/03/24 05/26/24 History
omeprazole 20 mg delayed 20 mg PO HS Gastrointestinal Issue 05/27/21 06/03/24 05/26/24 History
release,disintegrating tablet
tamsulosin 0.4 mg capsule 0.4 mg PO HS Urinary Issue 05/27/21 06/03/24 05/26/24 History
metoprolol tartrate 25 mg tablet 25 mg PO HS Blood Pressure 05/27/24 06/03/24 05/26/24 History
psyllium husk 0.4 gram capsule 0.4 g PO HSPRN PRN constipation 05/27/24 06/03/24 Unknown History
(Metamucil)
vitamins A,C,F-lfqn-dzwtaa 4,296 1 cap PO HS Supplement 05/27/24 06/03/24 05/26/24 History
mcg-226 mg-90 mg capsule
(PreserVision AREDS)
diphenhydramine 25 1 tab PO HS PRN sleep 05/28/24 06/03/24 05/25/24 History
mg-acetaminophen 500 mg tablet
(Tylenol PM Extra Strength)
cyanocobalamin (vitamin B-12) 500 500 mcg PO DAILY Supplement 1 06/01/24 06/03/24 Unknown Rx
mcg tablet month #30 tabs
ferrous sulfate 325 mg (65 mg 325 mg PO Q OTHER DAY Supplement 1 06/01/24 06/03/24 Unknown Rx
iron) tablet (FeroSul) month #15 tabs
Review of Systems
-
History Source: Patient
All other systems: Negative unless noted
Vitals / Labs / Diagnostic Testing
Vital Signs
Temp Pulse Resp BP Pulse Ox
97.1 F 94 18 172/86 97
06/03/24 10:48 06/03/24 10:48 06/03/24 10:48 06/03/24 10:48 06/03/24 10:48
Lab Data
06/03/24 02:11
06/03/24 02:11
Diagnostic Testing:
Physical Exam
-
HEENT: Normocephalic, Anicteric and Other (appears weak/deconditioned)
Cardiovascular: S1/S2 and Peripheral Edema (negative)
Respiratory: Wheeze (negative), Rales (Left base), Rhonchi (negative), Non-Labored Respirations and Other (Diminished breath sounds at left base)
GI: Soft, Non Distended, Non Tender and Normal Bowel Sounds
Neurology: Other (lethargic appearing, but answering questions appropriately)
Skin: Warm and Dry
General: Respiratory Distress (negative), Pain (Left lower back/left flank/left lower chest), Chills (negative) and Sweats (negative)
Assessment
-
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
rosacea, Ordonez's esophagus, history of COVID-19 (August 2023) and chronic cough/cough variant asthma who presents with mid back pain + generalized abdominal pain. Patient recently hospitalized from 05/27 - 06/01/2024 after presenting with
shortness of breath, required chest tube for left-sided loculated pleural effusion with lytic therapy instilled with tPA/dornase. Pleural fluid studies from 05/27/2024 consistent with hemothorax with pleural fluid hematocrit 23.3%. Size of effusion
was small on CT chest from 06/01/2024 and chest tube was removed, and he was discharged home. He now presents with abdominal pain/chest pain with similar size left lower lobe loculated pleural effusion seen on CT abdomen/pelvis with slightly
worsening atelectasis seen in the lingula + left lower lobe and bubbles seen in the pleural space. No acute pathology seen in the abdomen. Patient seen by IR today (06/03/2024) with loculated effusion too small for drainage. Patient continues to
be managed on the floor and pulmonary service now consulted for additional management/recommendations.
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
esophagus, colonic polyps, history of rosacea, diverticulosis, atopy, history of COVID-19 (08/2023), hiatal hernia, external hemorrhoids
Impression:
#Chest/abdominal pain - suspect musculoskeletal vs pleurisy vs recent hemothorax
#Left lower lobe loculated pleural effusion with history of malignant effusion and recent hemothorax s/p chest tube which was removed on 06/01/2024
#Hyperglycemia
#Hypochloremic, hyponatremia
#Chronic anemia
#CLL complicated by left-sided malignant effusion
#Alcohol use
Plan:
- IR evaluated the patient today (06/03) for thoracentesis however there is a small loculated left lower lobe pleural effusion which is not amenable to drainage
- Left lower lobe effusion is similar in size to prior CT chest from 2 days ago with increased atelectasis nimisha in lingula
- Considering we cannot improve left lower lobe pleural effusion percutaneously, and he had a hemothorax last admission which can cause restrictive lung disease if not fully evacuated/drained, I will consult CT surgery to evaluate patient for VATS
with washout, however given the fact that he has a left lower lobe malignant effusion, any surgical manipulation into the space is high risk
- Heme-onc consulted, and he is already s/p trial of zanubrutinib in with minimal change in pleural effusion or CBC. Continue follow-up with oncology for further treatment of his CLL
- Continue to trend WBC, Hb and plt
- Transfuse if needed to keep Hb>7, plt>20k
- Pain control with multimodal approach with opiates, muscle relaxers, toradol, tylenol and lidocaine patch
- Monitor for signs of alcohol withdrawal
- Thiamine and folate
- Maintain SpO2 >90-94% with supplemental O2 as needed
- Incentive spirometer encouraged
- Monitor CBC and transfuse if needed to keep Hb>7, plt>50k (given recent hemothorax)
- Replete electrolytes with K>4, Mg>2
- Maintain euglycemia with goal BG >100 and <180
- prn nebulized bronchodilators - not currently bronchospastic
- DVT ppx: SCDs; start chemical ppx with HSQ if Hb remains stable for >48 hrs
Of note, patient's daughter, Marcia, wishes to be updated daily if possible. This is because patient's , Susannah, has memory issues and is overwhelmed given the patient's poor health.
Pulmonary service will continue to follow along. He has a follow-up already arranged with Dr. Rhodes on 08/25/2024 at 10 AM. This appointment may need to be moved up depending how this hospitalization ensues.
Data:
CT abdomen/pelvis with IV contrast 06/03/2024:
Small left pleural effusion with some pleural thickening and bubbles of air in the left pleural space. Correlation with patient history for recent procedure such as thoracentesis. Otherwise, consider infection.
Limited evaluation of intestinal tract without oral contrast and with marked beam hardening artifact from bilateral hip arthroplasties, without intestinal obstruction or free air.
Total time spent today was 55 minutes for this encounter. Time includes reviewing laboratory test/imaging results, reviewing pertinent medical records, obtaining and reviewing medical history, performing an appropriate exam, ordering medications,
tests and procedures. Time also includes documentation of this encounter, coordinating patient care and communicating with other healthcare professionals. Total time does not include separately billed tests performed on this date of service.
[2024-06-03 09:35] LABS: Troponin I < 0.012 ng/ml
--- NOTE | 2024-06-03 11:10 | W.PN.UPDATE ---
Addendum entered and electronically signed by Buster Galindo DO 06/03/24 15:25:
CDI clarification: Hyponatremia, mild. Noncontributory to his presentation
Original Note:
Update Note
Progress Note Update
H&P from 6:30 AM today
83-year-old male with CLL, GERD, hypothyroidism, BPH, anemia of chronic disease, history of B12 deficiency that presented with chest and abdomen pain that started after being discharged recently for malignant pleural effusion s/p chest tube. Stated
he initially felt well at home, was a little unsteady on feet. Following morning he felt much better, though later in the day at around 7 PM he developed back pain L >R near the thoracic region. He tried Tylenol, NSAIDs, oxycodone without any
relief. States that his was giving him a back massage which she felt 'knots' in his back. He is also complained of some dyspeptic symptoms as well.
He had a CT scan in the ED that did not show any acute findings, showed residual pleural effusion in the left lung with bubbling at the bases. His x-rays show less pleural fluid relative to his previous scans last hospital stay.
Upon my evaluation this morning he still had back pain though more mild. Was having dyspepsia as well, belching when I was in the room. AFVSS, comfortable on room air.
Differential diagnoses for his back pain include musculoskeletal cause such as muscle spasm, pleural irritation in the context of malignant effusions, possible component of dyspepsia/GERD. Low suspicion for cardiovascular etiology
Plan:
-For now we will start empiric Flexeril for muscle spasms. Monitor for sedation.
-Will also escalate his antacid therapy empirically, increase omeprazole to 40 mg with as needed famotidine
-Will defer on repeat thoracentesis to pulmonology's discretion
-Monitor clinically
[2024-06-03] MEDS: FLEXERIL 5 MG PO ×3 (11:54→21:07)
[2024-06-03] MEDS: PEPCID 40 MG PO (11:54)
--- NOTE | 2024-06-03 13:03 | CON.ONC ---
Impression
Impression
recurrent pleural effusion - malignant - CLL
CLL
Plan
Plan
1. Recurrent pleural effusion
-pleural fluid flow cytometry - 03/07 - positive for CLL
-hemorrhagic component early 06/07 s/p chest tube
-pulmonary consulted
2. CLL - followed by Dr. Mcdonough
-trial of zanubrutinib in April - w/ minimal change in pleural effusion/ CBC
-Dr. Mcdonough considering transition in therapy to obinutuzumab / venetoclax
-CBC holding fairly stable
-follow CBC
-f/u as outpt for continued management of CLL w/ Dr. Mcdonough
Patient History
History of Present Illness
83y/o male seen in hematology consultation today regarding h/o CLL, now w/ recurrent pleural effusion.
The patient has a h/o CLL. In January, he developed cough, resulting in CXR on 02/02/24 revealing moderate left pleural effusion. He was seen by Meagan Wahl, w/IR guided thoracentesis performed on 02/19/24 w/ flow cytometry from pleural fluid revealing
CLL. He was evaluated by Dr. Herrera and started on BTK inhibitor therapy w/ zanubrutinib in March.
He was admitted to [place] in early May w/ progressively worsening pleural effusion, hemorrhagic, resulting in chest tube placement. W/ improvement, chest tube was discontinued and he was discharged on 06/01.
He now returns yesterday early this am w/ pain along his left. Repeat CXR revealed increased left basilar opacification at least in part suggesting increased small left pleural effusion. Cannot exclude accompanying atelectasis or pneumonia.
Pulmonary has been consulted for evaluation.
CBC is relatively stable -w/ total WBC 80,200, hemoglobin 7.7g/dl, and platelet count 450,000. ANC was adequate at 10,300.
Clinically, he is feeling slightly better this am. He continues to have some SOB w/ exertion, and some discomfort along his left chest wall. No fevers, abdominal pain.
Past-Medical/Surgical History
PMH:
CLL
pleural effusion -w/ pleural fluid flow cytometry - positive 03/07
hyperlipidemia
HTN
hypothyroidism
B12 deficiency
PSH:
chest tube 06/07
hip replacement
shoulder replacement
hernia
SH: no tobacco, no significant ETOH
FH: non-contributory
Allergies: as per chart
Patient Medication
�Medication �Instructions �Recorded �Confirmed �Last Taken �Type
atorvastatin 10 mg tablet 10 mg PO HS High Cholesterol 05/27/21 06/03/24 05/26/24 History
levothyroxine 125 mcg tablet 125 mcg PO HS Thyroid 05/27/21 06/03/24 05/26/24 History
omeprazole 20 mg delayed 20 mg PO HS Gastrointestinal Issue 05/27/21 06/03/24 05/26/24 History
release,disintegrating tablet
tamsulosin 0.4 mg capsule 0.4 mg PO HS Urinary Issue 05/27/21 06/03/24 05/26/24 History
metoprolol tartrate 25 mg tablet 25 mg PO HS Blood Pressure 05/27/24 06/03/24 05/26/24 History
psyllium husk 0.4 gram capsule 0.4 g PO HSPRN PRN constipation 05/27/24 06/03/24 Unknown History
(Metamucil)
vitamins A,C,L-cvcq-workhg 4,296 1 cap PO HS Supplement 05/27/24 06/03/24 05/26/24 History
mcg-226 mg-90 mg capsule
(PreserVision AREDS)
diphenhydramine 25 1 tab PO HS PRN sleep 05/28/24 06/03/24 05/25/24 History
mg-acetaminophen 500 mg tablet
(Tylenol PM Extra Strength)
cyanocobalamin (vitamin B-12) 500 500 mcg PO DAILY Supplement 1 06/01/24 06/03/24 Unknown Rx
mcg tablet month #30 tabs
ferrous sulfate 325 mg (65 mg 325 mg PO Q OTHER DAY Supplement 1 06/01/24 06/03/24 Unknown Rx
iron) tablet (FeroSul) month #15 tabs
Active Medications
Generic Name Dose Route Start Last Admin
Trade Name Freq PRN Reason Stop Dose Admin
Acetaminophen 650 mg 06/03/24 08:40
Acetaminophen 325 Mg Tablet PO 07/01/24 08:39
Q4HPRN PRN
Mild Pain / Temp > 101
Cyclobenzaprine HCl 5 mg 06/03/24 11:18 06/03/24 11:54
Cyclobenzaprine 10 Mg Tablet PO 07/01/24 11:17 5 mg
Q8HPRN PRN Administration
spasm/back pain
Famotidine 20 mg 06/03/24 11:17
Famotidine 20 Mg Tablet PO 07/01/24 11:16
BIDPRN PRN
dyspepsia, heart burn
Hydromorphone HCl 0.5 mg 06/03/24 08:40 06/03/24 10:46
Hydromorphone 0.5 Mg/0.5 Ml Syringe IV 06/17/24 08:39 0.5 mg
Q4HPRN PRN Administration
Severe Pain
Ketorolac Tromethamine 15 mg 06/03/24 08:40
Ketorolac 15 Mg/Ml Injection IV 06/08/24 08:39
Q6HPRN PRN
Moderate Pain
Levothyroxine Sodium 125 mcg 06/03/24 22:00
Levothyroxine 125 Mcg Tablet PO 07/01/24 21:59
HS JOY
Metoprolol Tartrate 25 mg 06/03/24 22:00
Metoprolol 25 Mg Regular Release Tablet PO 07/01/24 21:59
HS JOY
Pantoprazole Sodium 40 mg 06/03/24 22:00
Pantoprazole 40 Mg Delayed Release Tablet PO 07/01/24 21:59
HS JOY
Sodium Chloride 0 flush 06/03/24 09:00
Sodium Chloride 0.9% (Flush) Syringe IV 07/01/24 08:59
PER PROTOCOL JOY
Tamsulosin HCl 0.4 mg 06/03/24 22:00
Tamsulosin 0.4 Mg Capsule PO 07/01/24 21:59
HS JOY
Review of Systems
-
A ROS was performed w/ pertinent findings as per HPI.
Physical Exam
-
General: Well Developed and No Apparent Distress
Cardiology: Normal Sinus Rhythm
Pulmonary: Other (decreased breath sounds on left side)
Extremities: No C/C/E
Neurology: Non Focal
Labs
Lab Results
WBC 80.2 10^3/uL (4.8-10.8) H* 06/03/24 02:11
RBC 3.38 10^6/uL (4.70-6.10) L 06/03/24 02:11
Hgb 7.7 g/dL (13.0-18.0) L 06/03/24 02:11
Hct 25.2 % (39.0-52.0) L 06/03/24 02:11
MCV 74.6 fL (80.0-94.0) L 06/03/24 02:11
MCH 22.8 pg (27.0-31.0) L 06/03/24 02:11
MCHC 30.6 g/dL (33.0-37.0) L 06/03/24 02:11
RDW 16.5 % (11.5-14.5) H 06/03/24 02:11
Plt Count 450 10^3/uL (130-400) H 06/03/24 02:11
MPV 10.0 fL (7.4-10.4) 06/03/24 02:11
Abs Immat Gran (auto) 0.3 10^3/uL (0-0.05) H 06/03/24 02:11
Absolute Neuts (auto) 10.3 10^3/uL (1.4-6.5) H 06/03/24 02:11
Absolute Lymphs (auto) 68.8 10^3/uL (1.2-3.4) H 06/03/24 02:11
Absolute Monos (auto) 0.8 10^3/uL (0.1-0.6) H 06/03/24 02:11
Absolute Eos (auto) 0.0 10^3/uL (0-0.7) 06/03/24 02:11
Absolute Basos (auto) 0.0 10^3/uL (0-0.2) 06/03/24 02:11
Immature Gran % 0.4 % (0-0.5) 06/03/24 02:11
Neutrophils % 12.9 % (42.2-75.2) L 06/03/24 02:11
Lymphocytes % 85.7 % (20.5-51.1) H 06/03/24 02:11
Monocytes % 1.0 % (1.7-9.3) L 06/03/24 02:11
Eosinophils % 0.0 % (0-6) 06/03/24 02:11
Basophils % 0.0 % (0-2) 06/03/24 02:11
Creatinine 0.6 mg/dL (0.7-1.3) L 06/03/24 02:11
Vital Signs
Vital Signs
Temp Pulse Resp BP Pulse Ox
97.1 F 94 18 172/86 97
06/03/24 10:48 06/03/24 10:48 06/03/24 10:48 06/03/24 10:48 06/03/24 10:48
--- NOTE | 2024-06-03 14:46 | PN.CDI ---
CDI
- -
CDI:
Physician Documentation Request
Admit Date: 06/03/24 06:32
Dear Doctor Mateo,
Patient admitted with pleural effusion.
Na levels documented below:
Laboratory Tests
05/27/24 05/28/24 05/30/24
12:22 06:14 06:06
Sodium 132 L 133 L 134 L
Based on the above, could you clarify in the progress notes, the appropriate diagnosis, if significant, that supports the above abnormalities and additional evaluation, monitoring and/or treatment rendered:
Hyponatremia
Insignificant abnormal lab findings
Other
Use of terms such as suspected, likely, concern for, or probable (associated with a specific diagnosis that is being evaluated, monitored, or treated as if it exists) are acceptable and can be coded in the inpatient setting, when documented at the
time of discharge.
Thank you,
Tish LAZARO,RN,CCDS
CDI Specialist
Available via tiger text
Please use your independent medical judgment in providing your response.
[2024-06-03 18:01] LABS: Troponin I < 0.012 ng/ml
[2024-06-03] MEDS: LIDOCAINE 4% PATCH 2 PATCH TOPICAL (18:16)
[2024-06-03] MEDS: APRESOLINE 10 MG IV (18:16)
[2024-06-03] MEDS: LOPRESSOR 25 MG PO (21:06)
[2024-06-03] MEDS: FLOMAX 0.4 MG PO (21:06)
[2024-06-03] MEDS: SYNTHROID 125 MCG PO (21:06)
[2024-06-03] MEDS: PROTONIX 40 MG PO (21:06)
--- NOTE | 2024-06-03 22:38 | CONSULT.CT ---
Addendum entered and electronically signed by Efren Hines MD 06/04/24 08:17:
I saw and examined the patient.
The PA's note was reviewed and I agree with the note.
Comment:
I agree with the consultation note as detailed below. I have discussed this with my pulmonary medicine colleagues. VATS/pleurodesis in the setting of malignant pleural effusion is typically associated with less than ideal results. I would
advocate for repeat thoracentesis versus Pleurx catheter placement with ongoing management of his CLL per oncologic recommendations.
Thank you for the opportunity to participate in the care of this kind patient.
Please call with any questions or concerns.
Efren Hines MD
[phone]
Original Note:
Consultation
-
Date/Time Consultation Requested: 06/03/24, 6:35 pm
Date/Time Consultation Performed: 06/03/24, 10:40 pm
Requesting Provider: Dr. Wong
Performing Provider: Fidel Reeder PA-C for Dr. Hines
Reason for Consultation: L malignant pleural effusion, evaluate for VATS
Patient History
Physicians
Family Physician: Dr. Joe Oneill
History of Present Illness
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 He
is admitted on 06/03/24 with symptoms of mid back pain and generalized abdominal pain, which are similar to the symptoms from his recent hospitalization 05/27-06/01/24. At that time, he was noted to have acute anemia and L sided loculated pleural
effusion, requiring CT placement with lytic therapy instilled with tPA/dornase on 05/27 and 05/29/24. Pleural fluid studies from 05/27/24 were consistent with hemothorax (HCT was 23.3%). Chest CT on the day of discharge 06/01/24 showed a small LLL
loculated effusion with air bubbles seen. CT was removed and pt was discharged home with instructions to follow-up with Pulmonary, PCP, and Oncology. Pt had trial of zanubrutinib in April - w/ minimal change in pleural effusion/ CBC.
He now presents with similar symptoms of chest/abdominal pain. CT of abdomen/pelvis reveals similar size LLL loculated pleural effusion with slightly worsening atelectasis and bubbles seen in the pleural space and no acute pathology seen in the
abdomen. L pleural effusion was deemed too small for drainage by IR. CT surgery is consulted to evaluate patient for VATS procedure with washout.
Past Medical History
CLL, allergic rhinitis, restrictive lung disease, GERD, diastolic dysfunction, MVP, HTN, Hypothyroidism, chronic cough/cough variant asthma, chronic L-sided malignant pleural effusion with recent thoracentesis on 05/26/[address], Ordonez's
esophagus, colon polyps, rosacea, diverticulosis, atopy, hx Covid-19 in 08/2023, hiatal hernia, external hemorrhoids
Past Surgical History
L shoulder replacement, hernia repair x2, b/l hip replacement, hemorrhoid surgery, knee surgery, teeth extraction
Family History
Family Medical History: Cancer (Mother had ovarian cancer) and Other (Sister with Parkinson's dz)
Social History
Alcohol: Daily (few beers per day)
Drug: None
Tobacco: Former Smoker (1ppd for 10 yrs, quit 40 yrs ago)
Personal:
Living: With Family
Allergies
Allergy/AdvReac Type Severity Reaction Status Date / Time
Sulfa (Sulfonamide Allergy Swelling Verified 06/03/24 01:59
Antibiotics)
sulfamethoxazole Allergy Swelling Verified 06/03/24 01:59
Home Medications
�Medication �Instructions �Recorded �Confirmed �Type
atorvastatin 10 mg tablet 10 mg PO HS High Cholesterol 05/27/21 06/03/24 History
levothyroxine 125 mcg tablet 125 mcg PO HS Thyroid 05/27/21 06/03/24 History
omeprazole 20 mg delayed 20 mg PO HS Gastrointestinal Issue 05/27/21 06/03/24 History
release,disintegrating tablet
tamsulosin 0.4 mg capsule 0.4 mg PO HS Urinary Issue 05/27/21 06/03/24 History
metoprolol tartrate 25 mg tablet 25 mg PO HS Blood Pressure 05/27/24 06/03/24 History
psyllium husk 0.4 gram capsule 0.4 g PO HSPRN PRN constipation 05/27/24 06/03/24 History
(Metamucil)
vitamins A,C,H-svge-biscei 4,296 1 cap PO HS Supplement 05/27/24 06/03/24 History
mcg-226 mg-90 mg capsule
(PreserVision AREDS)
diphenhydramine 25 1 tab PO HS PRN sleep 05/28/24 06/03/24 History
mg-acetaminophen 500 mg tablet
(Tylenol PM Extra Strength)
cyanocobalamin (vitamin B-12) 500 500 mcg PO DAILY Supplement 1 06/01/24 06/03/24 Rx
mcg tablet month #30 tabs
ferrous sulfate 325 mg (65 mg 325 mg PO Q OTHER DAY Supplement 1 06/01/24 06/03/24 Rx
iron) tablet (FeroSul) month #15 tabs
Review of Systems
-
History Source: Patient and Other (medical records)
General: Reports No Symptoms and Other (ROS is negative, except as in HPI)
Physical Exam
Vital Signs
Temp 97.9 F 06/03/24 19:45
Temp route: Oral 06/03/24 19:45
Pulse 83 06/03/24 19:45
Rhythm: Normal sinus rhythm 06/03/24 09:56
Resp Rate 18 06/03/24 19:45
Blood pressure 166/86 06/03/24 19:45
Blood pressure extremity used: Left upper arm 06/03/24 19:45
Position: Lying 06/03/24 14:44
MAP (cuff-Citlalli Monitor) 101 06/03/24 08:00
SaO2 98 06/03/24 19:45
Oxygen Mode of Delivery Room air 06/03/24 19:45
Pulse Ox at Rest 97 06/03/24 14:50
Can the patient verbally communicate their pain? Yes 06/03/24 21:00
Pain scale rating: Asleep 06/03/24 21:00
Actual Weight 143 lb 6 oz 06/03/24 08:20
Body Mass Index (BMI) 20.6 06/03/24 08:20
Supine- Blood Pressure 200/95 06/03/24 14:50
Supine- Pulse 95 06/03/24 14:50
Sitting- Blood Pressure 172/76 06/03/24 14:50
Sitting- Pulse 104 06/03/24 14:50
Labs
06/03/24 02:11
06/03/24 02:11
Troponin I Cancelled 06/03/24 20:40
Exam
General: Other (Deconditioned)
HEENT: Normocephalic and Atraumatic
Respiratory: Other (diminished breath sounds at L base with some crackles. No wheeze)
Cardiac: S1/S2 and Regular Rhythm
GI: Soft, Non Tender, Non Distended and Normal Bowel Sounds
Skin: Warm and Dry
Neuro: Nonfocal/Grossly Intact
Assessment / Plan
-
Impression:
-CLL complicated by L-sided malignant pleural effusion (dx by pleural cytology on 02/19/24)
-small loculated L pleural effusion this admission not amenable for drainage per IR
-s/p trial of zanubrutinib in April - w/ minimal change in pleural effusion/ CBC
-recent admission 05/27-06/01/24 with pain and SOB- required thoracentesis and chest tube for L-sided loculated pleural effusion with lytic therapy instilled with tPA/dornase.
-pleural fluid studies from 05/27/24 consistent with hemothorax with pleural fluid HCT 23.3%
-asthma/ chronic cough/ restrictive lung disease
-GERD/Ordonez's esophagus
-Former smoker, quit about 40 yrs ago
-EtOH daily (few beers)
-HTN
-hypothyroidism
Plan:
-will review finding with Dr. Hines, who will provide further recommendations
Data Reviewed
-
CT Scan: Report Reviewed by me
Ultrasound: Report Reviewed by me
Labs: Labs Reviewed by me
Old Records: Reviewed
[2024-06-04] MEDS: DILAUDID 0.5 MG IV ×3 (00:51→15:49)
[2024-06-04 03:38] VITALS: BP 175/96
[2024-06-04] MEDS: APRESOLINE 10 MG IV (05:07)
[2024-06-04 05:13] LABS: Hematocrit 28.1 % (39.0-52.0); Hemoglobin 8.5 g/dL (13.0-18.0); Mean Corp Hgb Conc. 30.2 g/dL (33.0-37.0); Mean Corpuscular Hgb 22.8 pg (27.0-31.0); Mean Corpuscular Volume 75.5 fL (80.0-94.0); Mean Platelet Volume 10.4 fL (7.4-10.4); Platelet Count 463 10^3/uL (130-400); Red Blood Cell Count 3.72 10^6/uL (4.70-6.10); Red Cell Dist. Width 16.8 % (11.5-14.5); White Blood Cell Count 75.7 10^3/uL (4.8-10.8)
[2024-06-04 05:20] LABS: Calcium 9.9 mg/dl (8.4-10.2); Carbon Dioxide 27 mmol/L (22-30); Chloride 94 mmol/L (98-107); Estimated Creatinine Clearance 89 ml/min; eGFR > 60.00
[2024-06-04 05:28] LABS: Blood Urea Nitrogen 15 mg/dl (9-20); Glucose 109 mg/dl (70-99); Potassium 4.5 mmol/L (3.5-5.1); Sodium 133 mmol/L (135-145)
[2024-06-04 05:43] VITALS: BMI 20.3
[2024-06-04] MEDS: MIRALAX 17 GRAMS PO (05:52)
[2024-06-04] MEDS: ZOFRAN 4 MG IV (05:57)
[2024-06-04 07:00] VITALS: BP 139/70
[2024-06-04] MEDS: VITAMIN B1 100 MG PO (08:20)
[2024-06-04] MEDS: FLEXERIL 5 MG PO ×3 (08:21→21:01)
[2024-06-04] MEDS: FOLVITE 1 MG PO (08:22)
[2024-06-04] MEDS: LIDOCAINE 4% PATCH 2 PATCH TOPICAL (08:23)
--- NOTE | 2024-06-04 08:26 | W.PN.ONC ---
Today's Communication / Plan
-
Malignant pleural effusion documented by flow cytometry
Zanubrutinib in April - w/ minimal change in pleural effusion/ CBC
Transition in therapy to obinutuzumab / venetoclax
Hemoglobin slightly improved today at 8.5 g/dL
Iron studies Performed in the office on 05/26 show iron saturation of 5% With microcytic indices
If no evidence of acute infection would proceed with parenteral iron resuscitation Venofer 200 mg
Follow CBC
Impression
Impression
Recurrent pleural effusion - malignant - CLL
CLL
Anemia disproportionate to disease with microcytosis evaluate iron deficiency
Subjective/Objective
Subjective/Objective
Patient without new complaints today other than continued obstipation.
Vital Signs:
Vital Signs
Temp Pulse Resp BP Pulse Ox
98.6 F 99 16 139/70 97
06/04/24 07:00 06/04/24 07:00 06/04/24 07:00 06/04/24 07:00 06/04/24 07:00
Physical Exam
-
General: Well Developed and No Apparent Distress
Cardiology: Normal Sinus Rhythm
Pulmonary: Other (decreased breath sounds on left side)
Extremities: No C/C/E
Neurology: Non Focal
Lab Results:
Laboratory Data
WBC 75.7 10^3/uL (4.8-10.8) H* 06/04/24 04:37
Hgb 8.5 g/dL (13.0-18.0) L 06/04/24 04:37
Plt Count 463 10^3/uL (130-400) H 06/04/24 04:37
eGFR > 60.00 06/04/24 04:37
--- NOTE | 2024-06-04 10:18 | PTCARENOTE ---
Patient has had 2 runs of tachycardia into the 160s and 140s at rest. It resolved on its own. Asymptomatic when asked. Hospitalist notified
--- NOTE | 2024-06-04 10:27 | W.PN.HOSP.TC ---
Today's Communication/Plan
-
Follow CT surgery recs considering VATS
Begin IV iron replacement with Ferrlecit, Venofer does not seem to be not on formulary
Continue with as needed analgesia and antispasmodic
Start bowel regimen
Assessment / Plan
Assessment / Plan
#Back/Chest/abdomen discomfort
-suspect this is multifactorial, related to recurrent pleural effusions/pleural irritation, GERD and constipation
-Presenting symptoms that brought him into the hospital after recent discharge
-Seems to have improved slightly since admission, though still present
-Patient states he feels like he is constipated, mild general tenderness to palpate
-Started bowel regimen and escalated antacid regimen here
-Continue to monitor clinically, as needed analgesia and Flexeril
-Potential VATS while here as below
#Malignant loculated left pleural effusion
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
-Status post left thoracentesis on 02/19/2024 with 1300 mL drained, 05/26 with 100 mL drained from left pleura
-S/P recent left chest tube; S/p pleural lysis with tPA/dornase on 05/29/2024, last hospital stay
-Pulmonology evaluated again this time, no indication for repeat thoracentesis
-X-ray this morning is showing stable left pleural effusion compared with yesterday's imaging
-CT surgery is following for consideration of VATS
#Microcytic Anemia
-Multifactorial with CLL history and component of iron deficiency anemia
-Iron saturation in outpatient labs was 5%; was recently started on oral iron on 05/30
-Start IV Ferrlecit for iron deficiency, Venofer does not seem to be on formulary
-Will trend daily CBC, supportive transfusions as needed
#Chronic lymphocytic leukemia
-Follows with Dr. Rhodes, previously on Zanubrutinib though stopped prior to arrival
-Patient states that Zanubrutinib has risk of hemorrhage and he associates with hemothorax
-Has significantly elevated WBC in the range of 60-80K, at baseline
-Oncology planning to transition to obinutuzumab/venetoclax regimen
-Oncology following
#Vitamin B12 deficiency
-Status post IM repletion on last hospital stay
-Remains on oral B12 regimen
#Hypothyroidism
-Unclear etiology, home regimen includes 125 mcg
-No signs or symptoms of thyroid dysfunction at this time
-Stable on current dosage
#Constipation
-Continue Metamucil, added MiraLAX as needed
#GERD
#Hiatal hernia
-No known history of erosive disease or Ordonez's esophagus
-Home regimen includes omeprazole 20 mg nightly
-Added on famotidine twice daily as needed
#BPH
-Continue Flomax
DVT prophylaxis: subcu Lovenox
Diet: Regular
CODE STATUS: Full code
Anticipated Discharge: 24 - 48 hours
Subjective/Interval History
-
Date of Service: June 04, 2024
Patient was seen and examined at the bedside. No acute events overnight. AFVSS this morning.
X-ray this morning showed stable left pleural effusion.
Objective Data
-
Labs:
Laboratory Results
06/04/24
04:37
WBC 75.7 H*
Hgb 8.5 L
Hct 28.1 L
Plt Count 463 H
Sodium 133 L
Potassium 4.5
Chloride 94 L
Carbon Dioxide 27
BUN 15
Creatinine 0.6 L
Glucose 109 H
Calcium 9.9
Vital Signs:
Vital Signs
Temp Pulse Resp BP Pulse Ox
98.6 F 99 16 139/70 97
06/04/24 07:00 06/04/24 07:00 06/04/24 07:00 06/04/24 07:00 06/04/24 07:00
I&O
06/03/24 06/04/24 06/05/24
06:59 06:59 06:59
Intake Total 240 / 240
Output Total 700 / 700
Balance -460 / -460
Review of Systems
-
History Source: Patient
All other systems: Reviewed and negative
Physical Exam
-
General: No Apparent Distress, Comfortable and Other (Thin male)
HEENT: Normocephalic, Atraumatic and Moist Mucous Membranes
Respiratory: Clear to Auscultation, Non Labored Respirations and Decreased Breath Sounds (Left base); Negative Wheezes, Rales, Rhonchi or Accessory Resp Muscle Use
Cardiac: Regular Rhythm and S1/S2; Negative Murmur, Rub, JVD or Gallop
GI: Soft, Nondistended, Normal Bowel Sounds and Tender (Mild generalized tenderness, no peritoneal signs)
Musculoskeletal: No Clubbing, No Cyanosis and No Edema
Skin: Warm, Dry and Normal Turgor; Negative Rash
Neuro: AO x 3, Nonfocal/Grossly Intact and Central Nerve's Intact
Psych: Calm
Data Reviewed
-
Diagnostic Radiology: Report Reviewed by me and Discussed with Patient
Labs: Labs Reviewed by me and Discussed with Patient
[2024-06-04 11:02] VITALS: BP 120/65
--- NOTE | 2024-06-04 11:22 | W.PN.PUL.V3 ---
Today's Communication / Plan
-
monitor of fluid reaccumulation
not a surgical candidate
consider pleurx if rapidreaccumulation
Dr. Johansen updated at length
Pulmonary will sign off-outpatient pulm evaluation recommended
Assessment
-
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
rosacea, Ordonez's esophagus, history of COVID-19 (August 2023) and chronic cough/cough variant asthma who presents with mid back pain + generalized abdominal pain. Patient recently hospitalized from 05/27 - 06/01/2024 after presenting with
shortness of breath, required chest tube for left-sided loculated pleural effusion with lytic therapy instilled with tPA/dornase. Pleural fluid studies from 05/27/2024 consistent with hemothorax with pleural fluid hematocrit 23.3%. Size of effusion
was small on CT chest from 06/01/2024 and chest tube was removed, and he was discharged home. He now presents with abdominal pain/chest pain with similar size left lower lobe loculated pleural effusion seen on CT abdomen/pelvis with slightly
worsening atelectasis seen in the lingula + left lower lobe and bubbles seen in the pleural space. No acute pathology seen in the abdomen. Patient seen by IR today (06/03/2024) with loculated effusion too small for drainage. Patient continues to
be managed on the floor and pulmonary service now consulted for additional management/recommendations.
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
esophagus, colonic polyps, history of rosacea, diverticulosis, atopy, history of COVID-19 (08/2023), hiatal hernia, external hemorrhoids
Impression:
#Chest/abdominal pain - suspect musculoskeletal vs pleurisy vs recent hemothorax
#Left lower lobe loculated pleural effusion with history of malignant effusion and recent hemothorax s/p chest tube which was removed on 06/01/2024
#Hyperglycemia
#Hypochloremic, hyponatremia
#Chronic anemia
#CLL complicated by left-sided malignant effusion
#Alcohol use
Plan:
Respiratory status relatively stable
Supplemental oxygen as needed
Incentive spirometry
Recurrent pleural effusion
Interventional radiology 06/03/2024-small loculated pleural effusion not amenable to drainage
CT surgery consulted for possible VATS pleurodesis-consultation reviewed-not an ideal candidate and recommend conservative therapy
Thoracentesis versus eventual Pleurx catheter
Hematology/oncology following-correspondence reviewed
Transfuse as needed
Analgesia as needed per primary service
Monitor for signs of alcohol withdrawal
Thiamine and folate continue
Monitor blood sugar
Insulin supplementation as needed
Dr Johansen updated at length on 06/04/2024
Pulmonary will sign off-please call with questions
Of note, patient's daughter, Marcia, wishes to be updated daily if possible. This is because patient's , Susannah, has memory issues and is overwhelmed given the patient's poor health.
He has a follow-up already arranged with Dr. Rhodes on 08/25/2024 at 10 AM. This appointment may need to be moved up depending how this hospitalization ensues.
Data:
CT abdomen/pelvis with IV contrast 06/03/2024:
Small left pleural effusion with some pleural thickening and bubbles of air in the left pleural space. Correlation with patient history for recent procedure such as thoracentesis. Otherwise, consider infection.
Limited evaluation of intestinal tract without oral contrast and with marked beam hardening artifact from bilateral hip arthroplasties, without intestinal obstruction or free air.
Subjective Data
-
Date of Service:
Date of Service: June 04, 2024
Chief Complaint: Pulmonary Follow Up and Dyspnea Follow Up
Subjective:
Feels better from a respiratory perspective, still has some abdominal cramping and constipation, laxatives initiated, no shortness of breath, chest congestion, productive cough, chest pain
Review of Systems
General: Other (Per HPI)
Objective Data
Data Reviewed
Vital Signs / I&O:
Vital Signs
Temp Pulse Resp BP Pulse Ox
97.8 F 134 18 120/65 97
06/04/24 11:02 06/04/24 11:02 06/04/24 11:02 06/04/24 11:02 06/04/24 11:02
Intake and Output
06/03/24 06/04/24 06/05/24
06:59 06:59 06:59
Intake Total 240 / 240
Output Total 700 / 700
Balance -460 / -460
SaO2: 97
Physical Exam
General: Respiratory Distress (n) and Comfortable
HEENT: Normocephalic, Anicteric and Moist Mucous Membranes
Cardiovascular: Regular Rhythm
Respiratory: Clear (Diminished breath sounds at base), Wheeze (n), Crackles (Rare basilar), Rhonchi, Non-Labored Respirations, Accessory Resp Muscle Use (n) and Stridor
GI: Soft, Non Distended and Non Tender
Neurology: Awake, Alert and No Motor Deficits
Skin: Warm, Good Color, Cyanosis (n), Jaundice (n) and Rash (n)
Labs/Micro/Reports
Lab Data
06/04/24 04:37
06/04/24 04:37
--- NOTE | 2024-06-04 12:18 | CM ---
Patient seen with , Susannah ([phone]), initial assessment completed. Patient resides with in a two story home, three steps to enter. Patient denies DME, reports VN in the past after hip surgery, unsure with who, denies SNF. Patient
confirms PCP Dr. Oneill, [facility], confirms prescription coverage. CM discussed PT recommendations of home PT vs outpatient. Patient and undecided at this time, prefers home PT, patient would like to make decisions.
CM will continue to follow for all discharge planning needs.
Plan; home with VN vs outpatient PT, family undecided at this time.
[2024-06-04] MEDS: DULCOLAX 10 MG RECTAL (13:05)
[2024-06-04] MEDS: FERRLECIT 110 MG IV (14:26)
[2024-06-04 15:21] LABS: Glucose - Point of Care 109 mg/dl (70-99)
--- NOTE | 2024-06-04 15:32 | W.PN.UPDATE ---
Update Note
Progress Note Update
CONTROL CLERK SUBASSEMBLY was called at 1534 for musculoskeletal rib pain. I was immediately available at the bedside. Complained of pain in the lower right rib cage that radiated into the chest and back, including the left side of the chest. On exam he does have
discrete tenderness to palpation to the mid right rib cage near the midaxillary line. States that it reproduces the sensation that he is complaining of.
Unclear etiology for this pain, he denies any recent trauma. Ordered lidocaine patch and order x-ray to rule out fractures or other traumatic findings.
--- NOTE | 2024-06-04 15:33 | PTCARENOTE ---
Patient was reporting sharp 'electrical like pain' on his right flank at the border of his ribcage. The patient then reported the pain radiating across his left chest. Hospitalist was notified.
--- NOTE | 2024-06-04 15:37 | RR ---
A Rapid Response was called on this patient, please see Rapid Response form.
[2024-06-04 15:39] VITALS: BP 157/95
[2024-06-04] MEDS: LIDOCAINE 4% PATCH 1 PATCH TOPICAL (15:51)
--- NOTE | 2024-06-04 18:45 | PTCARENOTE ---
Patient tolerated soap suds enema, but did not want to get up at this time. Results still pending
[2024-06-04 19:52] VITALS: BP 155/91
[2024-06-04] MEDS: METAMUCIL, KONSYL 1 PACKET PO (20:23)
[2024-06-04] MEDS: SYNTHROID 125 MCG PO (21:01)
[2024-06-04] MEDS: FLOMAX 0.4 MG PO (21:02)
[2024-06-04] MEDS: PROTONIX 40 MG PO (21:02)
[2024-06-04] MEDS: LOPRESSOR 25 MG PO (21:02)
[2024-06-04 23:00] VITALS: BP 152/93
[2024-06-05] MEDS: LOPRESSOR 2.5 MG IV ×3 (01:58→20:49)
[2024-06-05 03:30] VITALS: BP 158/88
[2024-06-05 06:00] VITALS: BMI 20.4
[2024-06-05 07:15] VITALS: BP 157/91
--- NOTE | 2024-06-05 07:55 | PTCARENOTE ---
Addendum entered by Ivan Wells RN 06/05/24 07:57:
Patient asymptomatic, hospitalist notified.
Original Note:
Patient has been sinus tachycardia sustained around 120s (114-124).
[2024-06-05] MEDS: FOLVITE 1 MG PO (08:41)
[2024-06-05] MEDS: FLEXERIL 5 MG PO ×3 (08:41→21:06)
[2024-06-05] MEDS: METAMUCIL, KONSYL 1 PACKET PO (08:41)
[2024-06-05] MEDS: VITAMIN B1 100 MG PO (08:41)
[2024-06-05] MEDS: LIDOCAINE 4% PATCH 2 PATCH TOPICAL (08:42)
[2024-06-05] MEDS: LIDOCAINE 4% PATCH 1 PATCH TOPICAL (08:42)
[2024-06-05 09:31] LABS: Blood Urea Nitrogen 20 mg/dl (9-20); Calcium 9.9 mg/dl (8.4-10.2); Carbon Dioxide 24 mmol/L (22-30); Chloride 90 mmol/L (98-107); Estimated Creatinine Clearance 88 ml/min; Glucose 87 mg/dl (70-99); Potassium 4.3 mmol/L (3.5-5.1); Sodium 128 mmol/L (135-145); eGFR > 60.00
[2024-06-05 09:55] LABS: % Basophils 0.1 % (0-2); % Eosinophils 0.1 % (0-6); % Immature Granulocytes 0.5 % (0-0.5); % Lymphocytes 82.6 % (20.5-51.1); % Monocytes 1.8 % (1.7-9.3); % Neutrophils 14.9 % (42.2-75.2); Absolute Basophils 0.1 10^3/uL (0-0.2); Absolute Eosinophils 0.1 10^3/uL (0-0.7); Absolute Immature Granulocytes 0.4 10^3/uL (0-0.05); Absolute Lymphocytes 64.2 10^3/uL (1.2-3.4); Absolute Monocytes 1.4 10^3/uL (0.1-0.6); Absolute Neutrophils 11.6 10^3/uL (1.4-6.5); Hematocrit 26.8 % (39.0-52.0); Hemoglobin 8.4 g/dL (13.0-18.0); Mean Corp Hgb Conc. 31.3 g/dL (33.0-37.0); Mean Corpuscular Hgb 23.9 pg (27.0-31.0); Mean Corpuscular Volume 76.1 fL (80.0-94.0); Mean Platelet Volume 10.5 fL (7.4-10.4); Nucleated Red Blood Cells % 0 % (-); Platelet Count 476 10^3/uL (130-400); Red Blood Cell Count 3.52 10^6/uL (4.70-6.10); Red Cell Dist. Width 17.2 % (11.5-14.5)
[2024-06-05 09:56] LABS: White Blood Cell Count 77.6 10^3/uL (4.8-10.8)
--- NOTE | 2024-06-05 09:57 | PTCARENOTE ---
WBCs are 77.6 per morning labs. Hospitalist notified.
[2024-06-05] MEDS: CITROMA 300 ML PO (10:15)
--- NOTE | 2024-06-05 10:33 | W.PN.HOSP.TC ---
Today's Communication/Plan
-
Give mag citrate for constipation
IV Lopressor as needed for heart rate >130
Start maintenance IVF
Continue telemetry
Assessment / Plan
Assessment / Plan
#Sinus tachycardia
#Back/Chest/abdomen discomfort
#Constipation
#Atelectasis secondary to pleural effusion
-Suspect that sinus tachycardia is reactive to his intermittent pains, constipation as well
-Has had a heart rate consistently between 100-120/min over the last day with sinus rhythm
-He states that his pain is improved today, denies recurrence of electrical pains from yesterday
-Was started on bowel regimen and as needed enema, unsuccessful enema
-He may have a degree of hypovolemia present as well
Plan
-Start magnesium citrate for constipation, continue bowel regimen and antacid therapy
-Continue with oxycodone as needed, Flexeril, Tylenol for musculoskeletal pain
-Provided incentive spirometer for potential atelectasis in LLL
-Continue with IV metoprolol tartrate as needed for heart rate >130
-Start maintenance IV fluids
-Monitor on telemetry
#Malignant loculated left pleural effusion
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
-Status post left thoracentesis on 02/19/2024 with 1300 mL drained, 05/26 with 100 mL drained from left pleura
-S/P recent left chest tube; S/p pleural lysis with tPA/dornase on 05/29/2024, last hospital stay
-Pulmonology evaluated again this time, no indication for repeat thoracentesis
-X-ray this morning is showing stable left pleural effusion compared with yesterday's imaging
-CT surgery evaluated, not a candidate for VATS
#Microcytic Anemia
-Multifactorial with CLL history and component of iron deficiency anemia
-Iron saturation in outpatient labs was 5%; was recently started on oral iron on 05/30
-Start IV Ferrlecit for iron deficiency, Venofer does not seem to be on formulary
-Will trend daily CBC, supportive transfusions as needed
#Chronic lymphocytic leukemia
-Follows with Dr. Rhodes, previously on Zanubrutinib though stopped prior to arrival
-Patient states that Zanubrutinib has risk of hemorrhage and he associates with hemothorax
-Has significantly elevated WBC in the range of 60-80K, at baseline
-Oncology planning to transition to obinutuzumab/venetoclax regimen
#Vitamin B12 deficiency
-Status post IM repletion on last hospital stay
-Remains on oral B12 regimen
#Hypothyroidism
-Unclear etiology, home regimen includes 125 mcg
-No signs or symptoms of thyroid dysfunction at this time
-Stable on current dosage
#Constipation
-Continue Metamucil, added MiraLAX as needed
#GERD
#Hiatal hernia
-No known history of erosive disease or Ordonez's esophagus
-Home regimen includes omeprazole 20 mg nightly
-Added on famotidine twice daily as needed
#BPH
-Continue Flomax
DVT prophylaxis: subcu Lovenox
Diet: Regular
CODE STATUS: Full code
Anticipated Discharge: 24 - 48 hours
Subjective/Interval History
-
Date of Service: June 05, 2024
Seen and examined at the bedside. No acute events overnight. Has been consistently tachycardic with heart rate 100 to 120/min in sinus rhythm. Was given 1 dose of IV Lopressor. Otherwise AFVSS.
He states he feels better today, has minimal pain. States he does still feel constipated, unsuccessful enema yesterday. Ordered magnesium citrate.
He otherwise denies acute complaints including chest pain, shortness of breath, fevers or chills, nausea, vomiting, diarrhea, abnormal bleeding or bruising, paresthesias or weakness.
Objective Data
-
Labs:
Laboratory Results
06/05/24
08:25
WBC 77.6 H*
Hgb 8.4 L
Hct 26.8 L
Plt Count 476 H
Sodium 128 L
Potassium 4.3
Chloride 90 L
Carbon Dioxide 24
BUN 20
Creatinine 0.6 L
Glucose 87
Calcium 9.9
Vital Signs:
Vital Signs
Temp Pulse Resp BP Pulse Ox
97.7 F 116 16 157/91 96
06/05/24 07:15 06/05/24 07:15 06/05/24 07:15 06/05/24 07:15 06/05/24 07:15
I&O
06/04/24 06/05/24 06/06/24
06:59 06:59 06:59
Intake Total 240 / 240 2400 / 2880 480 / 480
Output Total 700 / 700 400 / 900 500 / 500
Balance -460 / -460 1999 / 1979 - /
Review of Systems
-
History Source: Patient
All other systems: Reviewed and negative
Physical Exam
-
General: No Apparent Distress, Comfortable and Other (Thin male); Negative Pain
HEENT: Normocephalic, Atraumatic, Moist Mucous Membranes and Anicteric
Respiratory: Clear to Auscultation, Non Labored Respirations and Decreased Breath Sounds (Left base); Negative Wheezes, Rales or Rhonchi
Cardiac: Regular Rhythm, S1/S2 and Tachycardic; Negative Murmur, Rub or Gallop
GI: Soft, Nondistended, Normal Bowel Sounds and Tender (Very mild tenderness generally, no peritoneal signs)
Musculoskeletal: No Clubbing, No Cyanosis and No Edema
Skin: Warm, Dry and Normal Turgor; Negative Rash
Neuro: AO x 3, Nonfocal/Grossly Intact and Central Nerve's Intact
Psych: Calm
Data Reviewed
-
Labs: Labs Reviewed by me and Discussed with Patient
[2024-06-05 10:50] VITALS: BP 129/80
[2024-06-05] MEDS: FERRLECIT 110 MG IV (13:03)
[2024-06-05] MEDS: NSS 1000 IV (13:03)
[2024-06-05 15:00] VITALS: BP 159/85
--- NOTE | 2024-06-05 17:01 | PTCARENOTE ---
heart rate 133 , just gave IV lopressor 2.5 mg , pt asymptomatic. Hospitalist notified.
[2024-06-05] MEDS: LOPRESSOR 5 MG IV (18:04)
--- NOTE | 2024-06-05 18:15 | PTCARENOTE ---
5mg IV Lopressor given as ordered, heart rate 110 at present.
[2024-06-05 19:02] VITALS: BP 128/71
[2024-06-05] MEDS: TYLENOL 650 MG PO (19:09)
[2024-06-05] MEDS: TOPROL XL 25 MG PO (19:09)
[2024-06-05] MEDS: PROTONIX 40 MG PO (21:05)
[2024-06-05] MEDS: SYNTHROID 125 MCG PO (21:05)
[2024-06-05] MEDS: FLOMAX 0.4 MG PO (21:06)
[2024-06-05 22:20] VITALS: BP 112/67
[2024-06-06] VITALS (12 sets, daily range): BP systolic 103–157; BP diastolic 58–80; PULSE 105; O2SAT 95; BMI 20.9
[2024-06-06] MEDS: NSS 1000 IV ×2 (05:47→19:55)
[2024-06-06] MEDS: VITAMIN B1 100 MG PO (08:38)
[2024-06-06] MEDS: FLEXERIL 5 MG PO ×3 (08:38→19:45)
[2024-06-06] MEDS: TOPROL XL 25 MG PO ×2 (08:38→19:45)
[2024-06-06] MEDS: FOLVITE 1 MG PO (08:38)
[2024-06-06] MEDS: LIDOCAINE 4% PATCH 2 PATCH TOPICAL (08:40)
[2024-06-06] MEDS: LIDOCAINE 4% PATCH 1 PATCH TOPICAL (08:41)
[2024-06-06] MEDS: METAMUCIL, KONSYL 1 PACKET PO (08:44)
--- NOTE | 2024-06-06 08:45 | W.PN.ONC2 ---
Documented by User: [email or web address] Nvooa 06/06/24 10:29
Today's Communication / Plan
-
follow CBC
continue B12
pain management
follow fever curve -new fever overnight, management per primary service
Impression
Impression
CLL
recurrent pleural Effusion, s/p thoracentesis 05/26 100cc pleural fluid drained, chest tube placed 05/27 with TPA/dornase installation
anemia, microcytic multifactorial. Iron studies c/w AOCD/inflammation. hemorrhagic pleural effusion. +B12 deficiency on B12 shots with PCP. Hemolysis unlikely with normal retic and LFts
restrictive lung dz
GERD
HFpEF
MVP
HTN
Plan
Plan
1. Recurrent pleural effusion
-pleural fluid flow cytometry - 03/07 - positive for CLL
-hemorrhagic component early 06/07 s/p chest tube
-no VATS candidate
2. CLL - followed by Dr. Mcdonough
-trial of zanubrutinib in April - w/ minimal change in pleural effusion/ CBC
-consider transition in therapy to obinutuzumab / venetoclax
-follow CBC
-f/u as outpt for continued management of CLL
-Requesting outpt second opinion at [facility] although anticipates returning back to our care. We will arrange.
3. Fever - evaluation per primary service
-would avoid parenteral iron if concern for acute infection
4. B12 deficiency s/p parenteral B12 x 3 doses, continue daily for total 7 days then transition to weekly dosing vs SL dosing 1000mcg daily
Subjective/Objective
Chief Complaint
new fever overnight
right lower rib pain that radiated to chest and back over night
constipation
Subjective
Tmax 101.1F, no hypotension or hypoxia
Vital Signs:
Vital Signs
Temp Pulse Resp BP Pulse Ox
98.2 F 95 16 133/72 96
06/06/24 03:17 06/06/24 03:17 06/06/24 03:17 06/06/24 03:17 06/06/24 03:17
Lab Results:
Laboratory Data
WBC 77.6 10^3/uL (4.8-10.8) H* 06/05/24 08:25
Hgb 8.4 g/dL (13.0-18.0) L 06/05/24 08:25
Plt Count 476 10^3/uL (130-400) H 06/05/24 08:25
eGFR > 60.00 06/05/24 08:25
Physical Exam
General: Well Developed and No Apparent Distress
Cardiology: Normal Sinus Rhythm
Pulmonary: Other (decreased breath sounds on left side)
Extremities: No C/C/E
Neurology: Non Focal
MS right rib TTP
Review of Systems
Review of Systems
ROS notable for subjective, otherwise negative

Documented by User: Kitty Marte MD 06/06/24 18:49
Today's Communication / Plan
-
Attending supplement
Pt c/o pain across upper abdomen. The pain involves site of previous chest tube placement but also the contralateral side.
Pt c/o constipation and thought this might be causing the pain.
We discussed regimen of lactulose 15 cc PO Q2h until BM.
Subsequently he underwent abd plain films suggestive of volvulus and went on to CT abd this afternoon. Unexpectedly, the CT shows acute bilateral adrenal hemorrhage and ileus.
Case d/w Dr. Au earlier today, pt approved for inpt bone marrow biopsy, however the adrenal hemorrhage now appears the likely cause of blood loss. Will hold off on bone marrow biopsy for now.
Brukinsa half-life is 2-4 hours so I do not this the Brukinsa is responsible for this latest bleeding episode.
Literature search reveals that CLL can rarely involve the adrenal glands but usually without clinical sequelae.
Plan:
Management of ileus as per Surgery.
Monitor coags, maintain adequate levels.
Transfuse PRN Hgb<7.5
T/c bone marrow biopsy if anemia fails to improve with stability in the adrenal hematomas
Continues on B12 for level of 167 last admission.
[employer]
follow CBC
continue B12
pain management
follow fever curve -new fever overnight, management per primary service
[2024-06-06 09:21] LABS: Blood Urea Nitrogen 24 mg/dl (9-20); Calcium 9.2 mg/dl (8.4-10.2); Carbon Dioxide 22 mmol/L (22-30); Chloride 92 mmol/L (98-107); Estimated Creatinine Clearance 68 ml/min; Glucose 72 mg/dl (70-99); Potassium 4.5 mmol/L (3.5-5.1); Sodium 126 mmol/L (135-145); eGFR > 60.00
[2024-06-06 09:40] LABS: % Basophils 0.1 % (0-2); % Eosinophils 0.1 % (0-6); % Immature Granulocytes 0.8 % (0-0.5); % Lymphocytes 78.9 % (20.5-51.1); % Monocytes 1.2 % (1.7-9.3); % Neutrophils 18.9 % (42.2-75.2); Absolute Basophils 0.1 10^3/uL (0-0.2); Absolute Eosinophils 0.1 10^3/uL (0-0.7); Absolute Immature Granulocytes 0.7 10^3/uL (0-0.05); Absolute Lymphocytes 65.5 10^3/uL (1.2-3.4); Absolute Neutrophils 15.7 10^3/uL (1.4-6.5); Hematocrit 22.9 % (39.0-52.0); Hemoglobin 6.9 g/dL (13.0-18.0); Mean Corp Hgb Conc. 30.1 g/dL (33.0-37.0); Mean Corpuscular Hgb 22.6 pg (27.0-31.0); Mean Corpuscular Volume 75.1 fL (80.0-94.0); Mean Platelet Volume 10.4 fL (7.4-10.4); Nucleated Red Blood Cells % 0 % (-); Platelet Count 451 10^3/uL (130-400); Red Blood Cell Count 3.05 10^6/uL (4.70-6.10); Red Cell Dist. Width 16.9 % (11.5-14.5); White Blood Cell Count 83.1 10^3/uL (4.8-10.8)
--- NOTE | 2024-06-06 10:20 | CM ---
Addendum entered by Jackelyn Heath 06/06/24 16:25:
Plan: home with [facility].
Original Note:
Patient seen bedside with spouse.
PT/OT recommending home with home care.
Discussed options, [facility] chosen.
Referral placed.
Plan: home with [facility] when stable.
T
[2024-06-06] MEDS: CYANOCOBALAMIN 1000 MCG IM (10:26)
--- NOTE | 2024-06-06 10:47 | VNURNOTE ---
Home Health Liaison met with patient and at bedside to discuss [facility] nurse/therapy, visits, schedule and homebound status. Patient is agreeable and understands that visits at home will be 2-3 x per week to assess and teach medical management.
[facility] brochure provided with contact information. Patient is aware that [facility] will contact them for start of care in 1-2 days after discharge from .
[facility] referral completed in [facility].
--- NOTE | 2024-06-06 13:00 | W.PN.HOSP.TC ---
Addendum entered and electronically signed by Shiva Gomez MD 06/06/24 16:28:
Followed up abdominal x-ray. Abdominal x-ray with probable sigmoid volvulus. Discussed with patient was that he is passing some flatulence. Did not eat much earlier today. Remains with intermittent mild abdominal discomfort. Patient agreed to
undergo repeat CAT scan. NPO. IV fluids restarted. Blood pressure stable. Check lactic acid. Discussed with Colorectal surgery and recommending stat CT with IV contrast and which is ordered.
Original Note:
Today's Communication/Plan
-
PRBC today
AXR pending
V/Q per onc
trend cbc/bmp
Assessment / Plan
Assessment / Plan
#Sinus tachycardia
#Back/Chest/abdomen discomfort
#Constipation
#Atelectasis secondary to pleural effusion
-Suspect that sinus tachycardia is reactive to his intermittent pains, constipation as well
-Continue with oxycodone as needed, Flexeril, Tylenol for musculoskeletal pain
-Provided incentive spirometer for potential atelectasis in LLL
-Continue with IV metoprolol tartrate as needed for heart rate >130
-Encourage po intake.
-Concern for Ileus-check Abdomen Xray.
-Monitor on telemetry
#Fever on 06/05/24
-No cough. No dysuria. No diarrhea
-Check Abdomen xray
-?cancer fever.
-If spikes fever again-check UA, Blood culture.
-CXR with There is moderate left pleural effusion, slightly increased in size when compared with prior study and associated with pneumonia versus atelectasis in the lower left lung
-US chest on 06/03 not enough fluid for thoracentesis. May need repeat US if with sob or requiring oxygen.
-IS encourage
-Le doppler pending
-V/Q scan ordered per onc.
#Malignant loculated left pleural effusion
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
-Status post left thoracentesis on 02/19/2024 with 1300 mL drained, 05/26 with 100 mL drained from left pleura
-S/P recent left chest tube; S/p pleural lysis with tPA/dornase on 05/29/2024, last hospital stay
-Pulmonology evaluated again this time, no indication for repeat thoracentesis
-X-ray this morning is showing stable left pleural effusion compared with yesterday's imaging
-CT surgery evaluated, not a candidate for VATS
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
-trend for now
#Microcytic Anemia
-Multifactorial with CLL history and component of iron deficiency anemia
-Iron saturation in outpatient labs was 5%; was recently started on oral iron on 05/30
-Start IV Ferrlecit for iron deficiency,
-Hgb at 6.9 and consented for blood transfusion. PRBC ordered.
-Will trend daily CBC, supportive transfusions as needed
#Chronic lymphocytic leukemia
-Follows with Dr. Rhodes, previously on Zanubrutinib though stopped prior to arrival
-Patient states that Zanubrutinib has risk of hemorrhage and he associates with hemothorax
-Has significantly elevated WBC in the range of 60-80K, at baseline
-Oncology planning to transition to obinutuzumab/venetoclax regimen
#Vitamin B12 deficiency
-Status post IM repletion on last hospital stay
-Remains on oral B12 regimen
#Hypothyroidism
-Continue synthroid 125 mcg
#GERD
#Hiatal hernia
-No known history of erosive disease or Ordonez's esophagus
-Home regimen includes omeprazole 20 mg nightly
-Added on famotidine twice daily as needed
#BPH
-Continue Flomax
DVT prophylaxis: subcu Lovenox
Diet: Regular
CODE STATUS: Full code
d/w wtih spouse at bedside in details
Anticipated Discharge: > 48 hours
Subjective/Interval History
-
Date of Service: June 06, 2024
Spiked fever overnight
states of abd discomfort
had bm yesterday
no nausea or vomiting
denies blood in stools or hematuria
no cough
Objective Data
-
Labs:
Laboratory Results
06/06/24
06:07
WBC 83.1 H*
Hgb 6.9 L*
Hct 22.9 L
Plt Count 451 H
Sodium 126 L
Potassium 4.5
Chloride 92 L
Carbon Dioxide 22
BUN 24 H
Creatinine 0.8
Glucose 72
Calcium 9.2
Vital Signs:
Vital Signs
Temp Pulse Resp BP Pulse Ox
98.1 F 99 16 125/64 97
06/06/24 11:30 06/06/24 11:30 06/06/24 11:30 06/06/24 11:30 06/06/24 11:30
I&O
06/05/24 06/06/24 06/07/24
06:59 06:59 06:59
Intake Total 2400 / 2880 2320 / 2320
Output Total 400 / 900 1025 / 1025
Balance 1999 1295 / 1295
Physical Exam
-
General: No Apparent Distress, Comfortable and Other (Thin male); Negative Pain
HEENT: Normocephalic, Atraumatic, Moist Mucous Membranes and Anicteric
Respiratory: Clear to Auscultation, Non Labored Respirations and Decreased Breath Sounds (Left base); Negative Wheezes, Rales or Rhonchi
Cardiac: Regular Rhythm, S1/S2 and Gallop; Negative Murmur
GI: Soft, Nondistended, Normal Bowel Sounds and Tender (Very mild tenderness generally, no peritoneal signs)
Musculoskeletal: No Clubbing, No Cyanosis and No Edema
Skin: Warm, Dry and Normal Turgor; Negative Rash
Neuro: Awake, AO x 3, Nonfocal/Grossly Intact and Central Nerve's Intact
Psych: Calm
Data Reviewed
-
Total Time Spent with Patient (in minutes): 58
[2024-06-06] MEDS: ZOSYN 50 IV ×2 (17:46→23:22)
--- NOTE | 2024-06-06 18:23 | W.PN.UPDATE ---
Addendum entered and electronically signed by Shiva Gomez MD 06/06/24 20:16:
d/w with IRAD-not a candidate for embolization as risk outweigh's benefit and recommend conservative management.
d/w with Endocrinology and recommending pt to be started on hydrocortisone 50mg q6h once hormone level are checked.
Cortisol, acth, renin and aldosterone is pending.
Original Note:
Update Note
Progress Note Update
Patient had abdominal x-ray earlier this morning with concern for volvulus. Underwent CT abdomen pelvis which showed acute bilateral adrenal hemorrhage and adynamic ileus. Of note patient did have hypokalemia on admission. Patient also with
hyponatremia. Patient was anemic this morning.
Currently patient states of passing some flatulence. Comfortable. Blood pressure so far has been stable. Mild tachycardia has been noted.
Discussed case with colorectal. Plan to observe overnight. May require decompression during this hospitalization. Will reevaluate tomorrow. NPO. IV fluids. IV Zosyn was started for now.
Regarding bilateral adrenal hemorrhage will check patient for renin, cortisol, ACTH and aldosterone levels and lactic acid. Unclear etiology at this point. Check coags. Patient not on DOAC/Heparin/Lovenox
If with any episode of hypotension start patient on high-dose corticosteroids
Discussed case with colorectal and attendance secretary and oncology
[employer] Texted endocrinology. Awaiting response.
Discussed case with patient's son and spouse at bedside
Discussed case with RN
Transferred to ICU.
--- NOTE | 2024-06-06 19:03 | PTCARENOTE ---
Report given to ICU. Pt transportsed to ICU via wheelchair to room 3365.
--- NOTE | 2024-06-06 19:32 | CON.CRS ---
Consultation
-
Date/Time Consultation Requested: 06/06/2024 @16:16
Date/Time Consultation Performed: 06/06/2024 @18:30
Requesting Provider: Shiva Gomez MD
Performing Provider: Ben Jade MD
Reason for Consultation: Abdominal distention, possible volvulus
Medical History
-
Chief Complaint: Abdominal distention and constipation
History of Present Illness:
83-year-old male with CLL and a recent admission for a recurrent/malignant left pleural effusion requiring a chest tube and lytic therapy, admitted on 06/03/24 with chest pain and abdominal pain. For the past several weeks he has felt constipated and
distended with a band-like pressure in the upper abdomen. His bowels were regular in the past while taking Metamucil. Over the past few weeks he moves his bowels every couple of days and they are small in volume. He has been passing flatus and feels
the bisacodyl suppositories are helping. He has also had some nausea and hasn't been eating much. Last week he had intense back/flank pain and he was using narcotics. His last colonoscopy was on 10/23/[address] Patel and it revealed a few small polyps
(sessile serrated lesions), left-sided diverticular disease, and hemorrhoids.
His WBC has remained elevated (~80K) and his hemoglobin was 7.7 g/dL on admission, and today it is 6.9 g/dL. A CT scan of the abdomen and pelvis with IV contrast on 06/03/24 revealed a small left pleural effusion and no bowel obstruction.
A plain abdominal radiograph this afternoon was concerning for a sigmoid volvulus, possibly a cecal volvulus. A repeat CT scan of the abdomen and pelvis with IV contrast this evening does not reveal a volvulus, but the cecum is distended measuring
7.7 x 10.0 cm with distention of the ascending colon and a moderate amount of fecal material throughout the transverse colon. The descending colon is collapsed and the sigmoid colon contains diverticula and gas without inflammation. The distal
sigmoid colon and rectum are collapsed. Newly noted are acute bilateral adrenal masses consistent with hemorrhage, new from 3 days prior. There is a also a moderate-sized malignant left hydropneumothorax.
Past Medical History
Past Medical History: Asthma, Cancer (CLL), GERD, HTN, Hypercholesterolemia, Valvular Disease (MVP) and Other (malignant left pleural effusion)
Past Surgical History: Hernia Repair (inguinal), Orthopedic (bilateral hip replacements; left shoulder replacement) and Other (hemorrhoidectomy)
Social History
Tobacco: Non-Smoker
Alcohol: Daily
Personal:
Living: With Family
Family History
Family History: Cancer (mother (ovarian))
Allergies / Home Medications
Allergy/AdvReac Type Severity Reaction Status Date / Time
Sulfa (Sulfonamide Allergy Swelling Verified 06/03/24 01:59
Antibiotics)
sulfamethoxazole Allergy Swelling Verified 06/03/24 01:59
�Medication �Instructions �Recorded �Confirmed �Type
atorvastatin 10 mg tablet 10 mg PO HS High Cholesterol 05/27/21 06/03/24 History
levothyroxine 125 mcg tablet 125 mcg PO HS Thyroid 05/27/21 06/03/24 History
omeprazole 20 mg delayed 20 mg PO HS Gastrointestinal Issue 05/27/21 06/03/24 History
release,disintegrating tablet
tamsulosin 0.4 mg capsule 0.4 mg PO HS Urinary Issue 05/27/21 06/03/24 History
metoprolol tartrate 25 mg tablet 25 mg PO HS Blood Pressure 05/27/24 06/03/24 History
psyllium husk 0.4 gram capsule 0.4 g PO HSPRN PRN constipation 05/27/24 06/03/24 History
(Metamucil)
vitamins A,C,H-cpiu-chtwax 4,296 1 cap PO HS Supplement 05/27/24 06/03/24 History
mcg-226 mg-90 mg capsule
(PreserVision AREDS)
diphenhydramine 25 1 tab PO HS PRN sleep 05/28/24 06/03/24 History
mg-acetaminophen 500 mg tablet
(Tylenol PM Extra Strength)
cyanocobalamin (vitamin B-12) 500 500 mcg PO DAILY Supplement 1 06/01/24 06/03/24 Rx
mcg tablet month #30 tabs
ferrous sulfate 325 mg (65 mg 325 mg PO Q OTHER DAY Supplement 1 06/01/24 06/03/24 Rx
iron) tablet (FeroSul) month #15 tabs
Review of Systems
-
History Source: Patient
All other systems: Negative unless noted
A 10 point review of systems was completed, and was negative except as per HPI.
Physical Exam
Vital Signs
Temp 98.6 F 06/06/24 15:46
Pulse 108 06/06/24 15:46
Resp Rate 18 06/06/24 15:46
Blood pressure 116/70 06/06/24 15:46
SaO2 96 06/06/24 15:30
06/05/24 06/06/24 06/07/24
06:59 06:59 06:59
Actual Weight 64.438 kg 66.134 kg
Body Mass Index (BMI) 20.9
Lab Results / Allergies
06/06/24 06:07
WBC 83.1 10^3/uL (4.8-10.8) H* 06/06/24 06:07
Hgb 6.9 g/dL (13.0-18.0) L* 06/06/24 06:07
Hct 22.9 % (39.0-52.0) L 06/06/24 06:07
Plt Count 451 10^3/uL (130-400) H 06/06/24 06:07
Abs Immat Gran (auto) 0.7 10^3/uL (0-0.05) H 06/06/24 06:07
Neutrophils % 18.9 % (42.2-75.2) L 06/06/24 06:07
Allergy/AdvReac Type Severity Reaction Status Date / Time
Sulfa (Sulfonamide Allergy Swelling Verified 06/03/24 01:59
Antibiotics)
sulfamethoxazole Allergy Swelling Verified 06/03/24 01:59
Physical Exam
General: Well Developed, No Apparent Distress and Comfortable
HEENT: Normocephalic and Anicteric
GI: Soft, Tender (mild in the epigastrium; tympany in the upper abdomen) and Distended
Musculoskeletal: No Edema
Skin: Warm and Dry
Neuro: Awake and Alert
Psych: Calm
Data Reviewed
-
Radiology: Image Personally Visualized and interpreted, Report Reviewed by me, Discussed with Physician, Discussed with Patient and Discussed with Family
CT Scan: Image Personally Visualized and interpreted, Report Reviewed by me, Discussed with Physician, Discussed with Patient and Discussed with Family
Labs: Labs Reviewed by me, Discussed with Physician, Discussed with Patient and Discussed with Family
Assessment / Plan
-
Right colonic distention most likely due to adynamic ileus, secondary to a malignant left pleural effusion and recent adrenal hemorrhage. The CT scan does not support a diagnosis of a volvulus.
I reviewed the current findings with the patient, his and son at the bedside, and explained that the treatment is supportive. He passed a lot of flatus recently and feels better. I recommend minimizing narcotics, mobilization as much as
possible, NPO for now, IV hydration with correction of his electrolyte abnormalities, and treatment of his effusion and CLL. Continue bisacodyl suppositories for now. If no improvement, a decompressive colonoscopy can be considered, either by our
service or GI. Unclear if he is a candidate for neostigmine. I discussed my findings with Dr. Gomez, and he plans on transferring him to the ICU.
[2024-06-06] MEDS: DULCOLAX 10 MG RECTAL (19:44)
[2024-06-06] MEDS: PROTONIX 40 MG PO (19:45)
[2024-06-06] MEDS: SYNTHROID 125 MCG PO (19:45)
[2024-06-06] MEDS: FLOMAX 0.4 MG PO (19:45)
[2024-06-06 20:07] LABS: INR 1.28; PT 15.8 Sec (11.4-14.6)
[2024-06-06 20:08] LABS: APTT 47.4 Sec (23.4-35.0)
[2024-06-06 20:09] LABS: % Eosinophils 0.2 % (0-6); % Immature Granulocytes 0.5 % (0-0.5); % Lymphocytes 82.5 % (20.5-51.1); % Neutrophils 15.8 % (42.2-75.2); Absolute Eosinophils 0.2 10^3/uL (0-0.7); Absolute Immature Granulocytes 0.4 10^3/uL (0-0.05); Absolute Lymphocytes 69.3 10^3/uL (1.2-3.4); Absolute Monocytes 0.9 10^3/uL (0.1-0.6); Absolute Neutrophils 13.2 10^3/uL (1.4-6.5); Hematocrit 29.5 % (39.0-52.0); Hemoglobin 8.9 g/dL (13.0-18.0); Mean Corp Hgb Conc. 30.2 g/dL (33.0-37.0); Mean Corpuscular Hgb 23.7 pg (27.0-31.0); Mean Corpuscular Volume 78.5 fL (80.0-94.0); Mean Platelet Volume 10.2 fL (7.4-10.4); Nucleated Red Blood Cells % 0 % (-); Platelet Count 484 10^3/uL (130-400); Red Blood Cell Count 3.76 10^6/uL (4.70-6.10); Red Cell Dist. Width 17.2 % (11.5-14.5)
--- NOTE | 2024-06-06 20:30 | PTCARENOTE ---
rec'd patient from [facility]. oriented x3. supervision when walking to bed. SR/ST on monitor. on RA, denies SOB, diminished breath sounds on L side. NPO status. urinal at bedside. new PIV placed, IVF initiated. labs sent. call paez within reach. family
updated at bedside, care ongoing.
[2024-06-06 20:37] LABS: Cortisol, Random 12.8 ug/dl
[2024-06-06 20:43] LABS: Fibrinogen 750 MG/DL (199-459)
[2024-06-07] VITALS (15 sets, daily range): BP systolic 115–152; BP diastolic 63–91; BMI 21.2
[2024-06-07] MEDS: ZOSYN 50 IV (05:22)
[2024-06-07 06:04] LABS: Hematocrit 24.1 % (39.0-52.0); Hemoglobin 7.5 g/dL (13.0-18.0); Mean Corp Hgb Conc. 31.1 g/dL (33.0-37.0); Mean Corpuscular Hgb 24.1 pg (27.0-31.0); Mean Corpuscular Volume 77.5 fL (80.0-94.0); Platelet Count 411 10^3/uL (130-400); Red Blood Cell Count 3.11 10^6/uL (4.70-6.10); White Blood Cell Count 66.6 10^3/uL (4.8-10.8)
[2024-06-07 06:05] LABS: INR 1.31; PT 16.1 Sec (11.4-14.6)
--- NOTE | 2024-06-07 06:05 | PTCARENOTE ---
AM labs sent. pt with BM x1 overnight. denies pain/SOB overnight. remains NPO. IVF continue. call paez within reach.
[2024-06-07 06:16] LABS: ALT (SGPT) 27 U/L (0-50); AST (SGOT) 32 U/L (17-59); Albumin 2.6 g/dl (3.5-5.0); Alkaline Phosphatase 113 U/L (38-126); Blood Urea Nitrogen 15 mg/dl (9-20); Calcium 8.8 mg/dl (8.4-10.2); Carbon Dioxide 25 mmol/L (22-30); Chloride 95 mmol/L (98-107); Estimated Creatinine Clearance 78 ml/min; Glucose 80 mg/dl (70-99); Potassium 4.2 mmol/L (3.5-5.1); Sodium 129 mmol/L (135-145); Total Bilirubin 0.6 mg/dl (0.2-1.3); Total Protein 4.9 g/dl (6.3-8.2); eGFR > 60.00
[2024-06-07] MEDS: FOLVITE 1 MG PO (08:01)
[2024-06-07] MEDS: FLEXERIL 5 MG PO ×3 (08:01→20:42)
[2024-06-07] MEDS: METAMUCIL, KONSYL 1 PACKET PO ×2 (08:02→20:42)
[2024-06-07] MEDS: TOPROL XL 25 MG PO ×2 (08:03→20:35)
[2024-06-07] MEDS: VITAMIN B1 100 MG PO (08:03)
[2024-06-07 08:05] LABS: % Basophils 0.1 % (0-2); % Eosinophils 0.4 % (0-6); % Immature Granulocytes 0.4 % (0-0.5); % Lymphocytes 84.1 % (20.5-51.1); % Monocytes 1.4 % (1.7-9.3); % Neutrophils 13.6 % (42.2-75.2); Absolute Basophils 0.1 10^3/uL (0-0.2); Absolute Eosinophils 0.3 10^3/uL (0-0.7); Absolute Immature Granulocytes 0.3 10^3/uL (0-0.05); Absolute Monocytes 0.9 10^3/uL (0.1-0.6); Absolute Neutrophils 9.1 10^3/uL (1.4-6.5); Nucleated Red Blood Cells % 0 % (-)
[2024-06-07] MEDS: LIDOCAINE 4% PATCH TOPICAL ×2 (08:07→08:08)
--- NOTE | 2024-06-07 08:10 | W.PN.INTV ---
Today's Communication / Plan
Recommendations
Pretest probability of an acute PE is low with heart rate less than 90, on room air breathing comfortably with no pleuritic chest pain or SOB --> hold off on VQ scan for now
Diet as per colorectal surgery with bowel regimen per rectum with Dulcolax suppositories + mag citrate
Up OOB as tolerated
Will discuss with endo regarding if steroids needs given he is HDN stable --> defer to them
Change Zosyn to Unasyn and give x 5 days, broadening further if pt becomes hypoxic or HDN stable
Pain control but limit narcotics if possible
Colorectal Surgery on board - recs appreciated; not a surgical candidate at this time
Trend Hb and transfuse to keep >7g/dL
In event he needs decompressive colonoscopy, consult GI
If Hb remains stable and he remains HDN stable without hypoxia, then will transfer out of ICU to telemetry, and we will sign off at that time. Please call us back if there are any additional questions or concerns. Thank you for allowing us to be
involved in the care of this patient.
Assessment
-
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
rosacea, Ordonez's esophagus, history of COVID-19 (August 2023) and chronic cough/cough variant asthma who presents with mid back pain + generalized abdominal pain. Patient recently hospitalized from 05/27 - 06/01/2024 after presenting with
shortness of breath, required chest tube for left-sided loculated pleural effusion with lytic therapy instilled with tPA/dornase. Pleural fluid studies from 05/27/2024 consistent with hemothorax with pleural fluid hematocrit 23.3%. Size of effusion
was small on CT chest from 06/01/2024 and chest tube was removed, and he was discharged home. He now presents with abdominal pain/chest pain with similar size left lower lobe loculated pleural effusion seen on CT abdomen/pelvis with slightly
worsening atelectasis seen in the lingula + left lower lobe and bubbles seen in the pleural space. No acute pathology seen in the abdomen. Patient seen by IR on 06/03/2024 with loculated effusion too small for drainage. Patient was continued to be
managed on the floor and developed constipation as well as acute anemia. CT abdomen/pelvis with IV contrast showed new bilateral adrenal masses consistent with hemorrhage as well as severe air distention in the cecum + ascending colon suggestive of
adynamic colonic ileus as well as increasing consolidation in the left lower lobe/lingula. 1 unit PRBC was given and patient was transferred to the ICU for closer monitoring.
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
esophagus, colonic polyps, history of rosacea, diverticulosis, atopy, history of COVID-19 (08/2023), hiatal hernia, external hemorrhoids
Impression:
#Acute anemia likely due to bilateral adrenal hemorrhage vs CLL in setting of AOCD, severe iron-deficiency and bone marrow hypoproliferation (low retic index of 0.96)
#Constipation with air distension of cecum and ascending colon likely due to adynamic ileus without bowel obstruction - likely opioid induced constipation
#Bilateral acute adrenal hemorrhage: Unknown etiology but possibly due to his history of CLL
#Chest/abdominal pain - suspect musculoskeletal vs pleurisy vs recent hemothorax
#Left lower lobe loculated hydropneumothorax with history of malignant effusion and recent hemothorax s/p chest tube which was removed on 06/01/2024
#Aspiration pneumonia involving L-lung
#Hyperglycemia - resolved
#Hypochloremic, hyponatremia
#Chronic anemia
#CLL complicated by left-sided malignant effusion
#Alcohol use
Plan:
- Continue to trend Hb and transfuse as needed to keep >7g/dL, plt>50k
- Start iron supplementation assuming remains afebrile over next 24-48 hrs
- IR reviewed case and he is not a candidate for angiogram/embolization as risks outweigh benefits regarding adrenal hemorrhage
- Hold off on anti-platelets/anti-coagulants until Hb stable for >48-72 hrs
- Endo consulted --> follow up ACTH, aldosterone and renin levels
- Random cortisol level was drawn yesterday evening and was 12.8 --> in the setting of normotension, I believe this a normal value and I do not believe we need to start stress dose steroids at this time; defer to endocrinology
- Maintain SpO2 >90-94%
- Of note, a VQ scan was ordered prior to today at the request of oncology, however the pretest probability of an acute PE is unlikely given he is not tachycardic and is on room air breathing comfortably with no pleuritic chest pain. Hold off on
VQ scan for now.
- Aspiration precautions
- Check METAL GRADER eval to rule out aspiration
- Maintain MAP>65
- Continue with gentle hydration but with stop date to avoid volume overload
- Antiphospholipid workup also ordered this morning and is pending � follow-up results
- Start bowel regimen with magnesium citrate + psyllium and encourage patient to get up OOB as tolerated and ambulate with assistance
- PT/OT
- Colorectal surgery consulted --> recs appreciated; no indication for surgery at this time
- Serial abd exams and AXR tomorrow
- Defer diet to colorectal surgery team --> ok for clears and ADAT
- Monitor for nausea/vomiting and Tx with Zofran prn (monitor QTc: 442ms via EKG on 06/04/2024)
- Outpatient oncology follow-up regarding treatment of his CLL
-If repeat imaging shows continued accumulation of left-sided pleural effusion, would recommend Pleurx catheter
- Pt was started on Abx on evening of 06/06/[address] abd/pelvis was done given large airspace consolidation in the left lower lobe + lingula with possible pneumonia. Although patient does not have symptoms consistent with pneumonia, the
imaging is concerning and his WBC count was rising last night (he had not received any steroids yet either at the time of blood draw last night).
- Will change Zosyn to Unasyn and check sputum Cx, and legionella/Strep PNA urine antigens
- Plan for 5 days ABx
- He will need repeat CT chest without contrast in 4-6 weeks to follow stability of LLL-hydropneumothorax and suspected L-sided PNA
- If he spikes a fever then check BCx and consider broadening ABx further to Vanc/Zosyn; for now can hold off on vanc/zosyn as he is HDN stable on room air breathing comfortably and is non-toxic appearing
- Trend serum Na with goal 135-145
- Continue thiamine and folate; out of window for EtOH withdrawal, hence no need for MSAS at this time
- Replete electrolytes with K>4, Mg>2
- Maintain euglycemia with goal BG 140-180
- prn nebulized bronchodilators - not currently bronchospastic
- Incentive spirometer encouraged 10x per hour for at least 4 hrs a day
- DVT ppx: SCDs for now. Start heparin SQ once Hb stable for >48-72hrs
He has a follow-up already arranged with Dr. Rhodes on 08/25/2024 at 10 AM. This appointment may need to be moved up depending how this hospitalization ensues.
If repeat Hb this afternoon is stable then patient will be downgraded to telemetry. Potato Seed Cutter/Pulmonary service will sign off. Thank you for allowing us to be involved in the care of this patient. Please reconsult if there are any additional
questions/concerns, or if patient's respiratory status deteriorates.
Data:
CT abdomen/pelvis with IV contrast 06/03/2024:
Small left pleural effusion with some pleural thickening and bubbles of air in the left pleural space. Correlation with patient history for recent procedure such as thoracentesis. Otherwise, consider infection.
Limited evaluation of intestinal tract without oral contrast and with marked beam hardening artifact from bilateral hip arthroplasties, without intestinal obstruction or free air.
CT Abd/Pelvis with IV contrast 06/06/2024:
1. New bilateral adrenal masses most consistent with ACUTE BILATERAL ADRENAL HEMORRHAGE given rapid development since 06/03/2024.
2. Severe air distention of the cecum and moderate distention of the ascending colon with air and fecal material suggesting constipation and an ADYNAMIC COLONIC ILEUS.
3. Severe diverticulosis in the sigmoid colon.
4. Small volume pelvic ascites.
5. Mild splenomegaly containing small calcified granulomas.
6. Small hiatal hernia.
7. MODERATE-SIZED MALIGNANT LEFT HYDROPNEUMOTHORAX (mostly complex fluid) surrounded by thick pleural thickening suggesting pleural malignancy.
8. Large dense airspace consolidations in the left lower and middle lobes.
9. Severe calcific atherosclerotic plaque in the coronary arteries and aorta.
10. Severe discogenic degenerative disease in the lower lumbar spine.
Total time spent today was 50 minutes for this encounter. Time includes reviewing laboratory test/imaging results, reviewing pertinent medical records, obtaining and reviewing medical history, performing an appropriate exam, ordering medications,
tests and procedures. Time also includes documentation of this encounter, coordinating patient care and communicating with other healthcare professionals. Total time does not include separately billed tests performed on this date of service.
Subjective Dataa
Subjective Data
Date of Service:
Date of Service: June 07, 2024
Chief Complaint: Potato Seed Cutter Follow Up
Subjective:
Patient seen and evaluated this morning. Heart rate 97, BP 130/67, saturating 98% on room air. He says he has abdominal distention with discomfort. He has been having small bowel movements but it is small and soft, nonbloody. He denies shortness
of breath or cough. Also denies chest pain, OROZCO, fevers or chills.
Review of Systems
General: Other (Negative unless mentioned above)
Objective Data
Data Reviewed
Vital Signs / I&O / Oxygen:
Vital Signs
Temp Pulse Resp BP Pulse Ox
98.6 F 96 18 130/67 98
06/07/24 07:27 06/07/24 09:00 06/07/24 09:00 06/07/24 08:00 06/07/24 09:00
Intake and Output
06/06/24 06/07/24 06/08/24
06:59 06:59 06:59
Intake Total 2320 / 2320 1630 / 1630
Output Total 1025 / 1025 1150 / 1150
Balance 1295 / 1295 480 / 480
SaO2 98
Physical Exam
General: Respiratory Distress (negative), Comfortable and Chills (negative)
HEENT: Normocephalic and Anicteric
Cardiovascular: S1-S2 and Peripheral Edema (negative)
Respiratory: Wheeze (negative), Crackles (left base), Rhonchi (negative), Non-Labored Respirations, Accessory Resp Muscle Use (negative) and Other (Diminished BS at left base)
GI: Soft, Distended, Non Tender and Other (hypoactive bowel sounds)
Neurology: AO x 3 and Tremors (negative)
Skin: Warm, Dry and Cyanosis (negative)
Labs/Micro/Reports
Lab Data
06/07/24 05:30
06/07/24 05:30
Laboratory Results
06/06/24 06/07/24
19:38 05:30
PT 15.8 H 16.1 H
INR 1.28 1.31
APTT 47.4 H 41.0 H
--- NOTE | 2024-06-07 09:19 | CM ---
Patient seen at bedside. Patient confirmed logistics and stated that he plans to go home with his and possibly [facility]. CM visited with patient in ICU. CM will continue to follow for discharge planning needs.
Plan; home with VN; [facility] to follow
--- NOTE | 2024-06-07 10:18 | W.PN.CRS1 ---
Today's Communication / Plan
-
advance to clears
xrays in AM
Assessment/Plan
-
Right colonic distention most likely due to adynamic ileus, secondary to a malignant left pleural effusion and recent adrenal hemorrhage. The CT scan does not support a diagnosis of a volvulus.
Plan:
- Okay to advance diet to clears
- Abdominal xrays in AM
- Recommend GI consult
- Continue fiber. Okay for stool softeners if needed.
- No plans for OR at this time.
Subjective Data
Subjective Data
Date of Service: June 07, 2024
Patient states he is having gas like pain. He is still distended and his abdomen feels sore. He denies nausea or vomiting. He is motivated to walk the halls.
Objective Data
-
Vital Signs
Temp Pulse Resp BP Pulse Ox
98.6 F 96 18 130/67 98
06/07/24 07:27 06/07/24 09:00 06/07/24 09:00 06/07/24 08:00 06/07/24 09:00
Intake & Output
06/06/24 06/07/24 06/08/24
06:59 06:59 06:59
Intake Total 2320 / 2320 1630 / 1630
Output Total 1025 / 1025 1150 / 1150
Balance 1295 / 1295 480 / 480
Intake:
Oral fluids 960 / 960 540 / 540
IV fluids (Total) 1250 / 1250
IV piggybacks 110 / 110 840 / 840
Blood Product Amount Infused ( 250 / 250
mL)
Packed Rbc Leukoreduced Unit 250 / 250
[id number]
Output:
Urine, Voided 1025 / 1025 1150 / 1150
Lab Results
06/07/24 05:30
Physical Exam
-
General: No Acute Distress and AOx3
Abdomen: Soft, Distended (mild) and Tender (sore)
Skin: Warm and Dry
[2024-06-07] MEDS: NSS 1000 IV (10:43)
[2024-06-07] MEDS: MYLICON 80 MG PO (10:43)
[2024-06-07] MEDS: CYANOCOBALAMIN 1000 MCG IM (10:43)
--- NOTE | 2024-06-07 11:05 | W.PN.ONC ---
Today's Communication / Plan
-
Monitor CBC daily
No signs to suggest ongoing/active bleeding
Plans for BM biopsy on hold
Continue B12 supplementation, can transition to SL dosing at discharge
Clear liquid diet per CRS, OOB/ambulate
Monitor for recurrent effusion, t/c Pleurx if rapid reaccumulation
Has consult at [facility] on 06/13 w/ Dr Steph Kahn re: CLL treatment
f/u with Dr. Kitty Mcdonough soon after
Impression
Impression
CLL, [facility]
bilateral adrenal hemorrhage, ?etiology
right colon distention/adynamic ileus
recurrent pleural Effusion (cytology + for CLL), s/p thoracentesis 05/26 100cc pleural fluid drained, chest tube placed 05/27 with TPA/dornase installation
anemia, microcytic multifactorial. Iron studies c/w AOCD/inflammation. hemorrhagic pleural effusion. +B12 deficiency on B12 shots with PCP. Hemolysis unlikely with normal retic and LFts
restrictive lung dz
GERD
HFpEF
MVP
HTN
Plan
Plan
Monitor CBC daily
No signs to suggest ongoing/active bleeding
Plans for BM biopsy on hold
Continue B12 supplementation, can transition to SL dosing at discharge
Clear liquid diet per CRS, OOB/ambulate
Monitor for recurrent effusion, t/c Pleurx if rapid reaccumulation
Has consult at [facility] on 06/13 w/ Dr Steph Kahn re: CLL treatment
f/u with Dr. Kitty Mcdonough soon after
Subjective/Objective
Subjective/Objective
Vital Signs:
Vital Signs
Temp Pulse Resp BP Pulse Ox
98.6 F 96 21 126/89 98
06/07/24 07:27 06/07/24 10:00 06/07/24 10:00 06/07/24 10:00 06/07/24 09:00
Lab Results:
Laboratory Data
WBC 66.6 10^3/uL (4.8-10.8) H* 06/07/24 05:30
Hgb 7.5 g/dL (13.0-18.0) L 06/07/24 05:30
Plt Count 411 10^3/uL (130-400) H 06/07/24 05:30
PT 16.1 Sec (11.4-14.6) H 06/07/24 05:30
INR 1.31 06/07/24 05:30
APTT 41.0 Sec (23.4-35.0) H 06/07/24 05:30
eGFR > 60.00 06/07/24 05:30
--- NOTE | 2024-06-07 11:39 | W.PN.HOSP.TC ---
Today's Communication/Plan
-
Trend cbc
diet per CRS
IV steroids
bowel regimen
Assessment / Plan
Assessment / Plan
#Bilateral Acute Adrenal Hemorrhage
-Awaiting ACTH, Renin, and Aldosterone results.
-Cortisol at 12.8.
-unclear etiology (sever leukocytosis, chemotherapy drugs) ?
-d/w with endocrinology and started on high dose Hydrocortisone 50mg q6h. May need florinef
-Not on DOAC.
-Trend Hgb. Transfuse prn.
-d/w with IRAD-not a candidate for embolization as risk outweigh's benefit and recommend conservative management.
-will need to f/u with brick loader as OP.
#Atelectasis secondary to pleural effusion
-Provided incentive spirometer for potential atelectasis in LLL
-OOB/ambulate.
#Adynamic lleus
-Limit narcotics
-Clears started per CRS
-bowel regimen. OOB/ambulate/PT/OT
-CRS following
#Fever on 06/05/24
-No cough. No dysuria. No diarrhea
-?cancer fever.
-If spikes fever again-check UA, Blood culture.
-CXR with There is moderate left pleural effusion, slightly increased in size when compared with prior study and associated with pneumonia versus atelectasis in the lower left lung
-US chest on 06/03 not enough fluid for thoracentesis. May need repeat US if with sob or requiring oxygen.
-IS encourage
-Le doppler pending
#Malignant loculated left pleural effusion
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
-Status post left thoracentesis on 02/19/2024 with 1300 mL drained, 05/26 with 100 mL drained from left pleura
-S/P recent left chest tube; S/p pleural lysis with tPA/dornase on 05/29/2024, last hospital stay
-Pulmonology evaluated again this time, no indication for repeat thoracentesis
-X-ray this morning is showing stable left pleural effusion compared with yesterday's imaging
-CT surgery evaluated, not a candidate for VATS
-Repeat CT abd/pelvis finding of MODERATE-SIZED MALIGNANT LEFT HYDROPNEUMOTHORAX (mostly complex fluid) surrounded by thick pleural thickening suggesting pleural malignancy.
-Per pulmonary, not increase in size of pleural effusion.
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
-trend for now. Improving.
-could be due to AI?
#Microcytic Anemia
-Multifactorial with CLL history and component of iron deficiency anemia
-Iron saturation in outpatient labs was 5%; was recently started on oral iron on 05/30
-Start IV Ferrlecit for iron deficiency,
-s/p 1u of PRBC so far.
-Will trend daily CBC, supportive transfusions as needed
#Chronic lymphocytic leukemia
-Follows with Dr. Rhodes, previously on Zanubrutinib though stopped prior to arrival
-Patient states that Zanubrutinib has risk of hemorrhage and he associates with hemothorax
-Has significantly elevated WBC in the range of 60-80K, at baseline
-Oncology planning to transition to obinutuzumab/venetoclax regimen
#Vitamin B12 deficiency
-Status post IM repletion on last hospital stay
-Remains on oral B12 regimen
#Hypothyroidism
-Continue synthroid 125 mcg
#GERD
#Hiatal hernia
-No known history of erosive disease or Ordonez's esophagus
-Home regimen includes omeprazole 20 mg nightly
-Added on famotidine twice daily as needed
#BPH
-Continue Flomax
DVT prophylaxis: scds
Diet: Regular
CODE STATUS: Full code
d/w with academic services professional
Anticipated Discharge: > 48 hours
Subjective/Interval History
-
Date of Service: June 07, 2024
states of abd pain/discomfort
Objective Data
-
Labs:
Laboratory Results
06/07/24 06/07/24
05:30 12:00
WBC 66.6 H* Pending
Hgb 7.5 L Pending
Hct 24.1 L Pending
Plt Count 411 H Pending
PT 16.1 H
INR 1.31
APTT 41.0 H
Sodium 129 L
Potassium 4.2
Chloride 95 L
Carbon Dioxide 25
BUN 15
Creatinine 0.7
Glucose 80
Calcium 8.8
Total Bilirubin 0.6
AST 32
ALT 27
Alkaline Phosphatase 113
Vital Signs:
Vital Signs
Temp Pulse Resp BP Pulse Ox
98.6 F 96 21 126/89 98
06/07/24 07:27 06/07/24 10:00 06/07/24 10:00 06/07/24 10:00 06/07/24 09:00
I&O
06/06/24 06/07/24 06/08/24
06:59 06:59 06:59
Intake Total 2320 / 2320 1630 / 1630 140 / 140
Output Total 1025 / 1025 1150 / 1150 350 / 350
Balance 1295 / 1295 480 / 480 -210 / -210
Physical Exam
-
General: No Apparent Distress, Comfortable and Other (Thin male); Negative Pain
HEENT: Normocephalic, Atraumatic, Moist Mucous Membranes and Anicteric
Respiratory: Non Labored Respirations and Decreased Breath Sounds (Left base); Negative Wheezes, Rales or Rhonchi
Cardiac: Regular Rhythm, S1/S2 and Gallop; Negative Murmur
GI: Soft, Nondistended, Normal Bowel Sounds and Tender (Very mild tenderness generally, no peritoneal signs)
Musculoskeletal: No Clubbing, No Cyanosis and No Edema
Skin: Warm, Dry and Normal Turgor; Negative Rash
Neuro: Awake, AO x 3, Nonfocal/Grossly Intact and Central Nerve's Intact
Psych: Calm
Data Reviewed
-
Total Time Spent with Patient (in minutes): 58
[2024-06-07] MEDS: CITROMA 300 ML PO (12:44)
[2024-06-07 12:48] LABS: % Basophils 0.1 % (0-2); % Eosinophils 0.3 % (0-6); % Immature Granulocytes 0.4 % (0-0.5); % Lymphocytes 84.8 % (20.5-51.1); % Monocytes 1.3 % (1.7-9.3); % Neutrophils 13.1 % (42.2-75.2); Absolute Basophils 0.1 10^3/uL (0-0.2); Absolute Eosinophils 0.2 10^3/uL (0-0.7); Absolute Immature Granulocytes 0.3 10^3/uL (0-0.05); Absolute Lymphocytes 62.2 10^3/uL (1.2-3.4); Absolute Neutrophils 9.6 10^3/uL (1.4-6.5); Hematocrit 26.2 % (39.0-52.0); Hemoglobin 8.1 g/dL (13.0-18.0); Mean Corp Hgb Conc. 30.9 g/dL (33.0-37.0); Mean Corpuscular Volume 77.7 fL (80.0-94.0); Mean Platelet Volume 9.6 fL (7.4-10.4); Nucleated Red Blood Cells % 0 % (-); Platelet Count 445 10^3/uL (130-400); Red Blood Cell Count 3.37 10^6/uL (4.70-6.10); Red Cell Dist. Width 16.9 % (11.5-14.5); Reticulocyte Count 2.3 % (0.4-2.8); White Blood Cell Count 73.4 10^3/uL (4.8-10.8)
--- NOTE | 2024-06-07 13:23 | PTCARENOTE ---
pt walked a loop of ICU, denies any pain, has been passing gas. refused am lidoderm patches as well as suppository. Is currently working on mag citrate that was ordered after confirming that it was ok per colorectal PA. Has been up in chair. Did
get tachy 120s with ambulation around unit, pt was asymptomatic. BP 150/86 once back in room. Pt in room. pt and updated. aware of plan to downgrade since hgb stable
[2024-06-07] MEDS: ZOFRAN 4 MG IV (13:57)
--- NOTE | 2024-06-07 15:01 | PTCARENOTE ---
pt vomited after taking mag citrate. zofran given. no other changes. resting comfortably in chair. pt heading to ultrasound then to new room.
--- NOTE | 2024-06-07 15:37 | PTCARENOTE ---
Report given to [facility] prior to transfer. Pt sent to ultrasound with volunteer then to new room. Belongings went with pt.
[2024-06-07] MEDS: UNASYN IV ×2 (17:04→20:42)
[2024-06-07] MEDS: SOLU-CORTEF 50 MG IV (20:42)
[2024-06-07] MEDS: PROTONIX 40 MG PO (20:42)
[2024-06-07] MEDS: FLOMAX 0.4 MG PO (20:43)
[2024-06-07] MEDS: SYNTHROID 125 MCG PO (20:43)
[2024-06-07 21:12] LABS: Hematocrit 25.8 % (39.0-52.0); Mean Corpuscular Hgb 23.4 pg (27.0-31.0); Mean Corpuscular Volume 75.4 fL (80.0-94.0); Mean Platelet Volume 9.5 fL (7.4-10.4); Platelet Count 463 10^3/uL (130-400); Red Blood Cell Count 3.42 10^6/uL (4.70-6.10); Red Cell Dist. Width 16.8 % (11.5-14.5); White Blood Cell Count 70.3 10^3/uL (4.8-10.8)
[2024-06-08] VITALS (7 sets, daily range): BP systolic 126–154; BP diastolic 65–81; PULSE 107; O2SAT 94; BMI 21.1
[2024-06-08] MEDS: NSS 1000 IV (00:59)
[2024-06-08] MEDS: SOLU-CORTEF 50 MG IV ×2 (01:00→05:22)
[2024-06-08] MEDS: UNASYN IV ×4 (03:14→20:58)
[2024-06-08 06:21] LABS: Hematocrit 25.6 % (39.0-52.0); Hemoglobin 7.9 g/dL (13.0-18.0); Mean Corp Hgb Conc. 30.9 g/dL (33.0-37.0); Mean Corpuscular Hgb 24.1 pg (27.0-31.0); Mean Platelet Volume 9.8 fL (7.4-10.4); Platelet Count 440 10^3/uL (130-400); Red Blood Cell Count 3.28 10^6/uL (4.70-6.10); Red Cell Dist. Width 16.9 % (11.5-14.5); White Blood Cell Count 61.4 10^3/uL (4.8-10.8)
--- NOTE | 2024-06-08 06:24 | PTCARENOTE ---
BASILIA Quiroz notified regarding critical WBC value. Plan of care ongoing.
[2024-06-08 06:31] LABS: ALT (SGPT) 33 U/L (0-50); AST (SGOT) 37 U/L (17-59); Albumin 2.6 g/dl (3.5-5.0); Alkaline Phosphatase 108 U/L (38-126); Blood Urea Nitrogen 10 mg/dl (9-20); Calcium 9.1 mg/dl (8.4-10.2); Carbon Dioxide 26 mmol/L (22-30); Chloride 97 mmol/L (98-107); Estimated Creatinine Clearance 91 ml/min; Glucose 104 mg/dl (70-99); Magnesium 2.5 mg/dl (1.6-2.3); Phosphorus 3.8 mg/dl (2.5-4.5); Potassium 4.8 mmol/L (3.5-5.1); Sodium 133 mmol/L (135-145); Total Bilirubin 0.4 mg/dl (0.2-1.3); Total Protein 4.8 g/dl (6.3-8.2); eGFR > 60.00
[2024-06-08 06:44] LABS: % Immature Granulocytes 0.3 % (0-0.5); % Lymphocytes 86.8 % (20.5-51.1); % Monocytes 0.3 % (1.7-9.3); % Neutrophils 12.6 % (42.2-75.2); Absolute Immature Granulocytes 0.2 10^3/uL (0-0.05); Absolute Lymphocytes 53.2 10^3/uL (1.2-3.4); Absolute Monocytes 0.2 10^3/uL (0.1-0.6); Absolute Neutrophils 7.7 10^3/uL (1.4-6.5); Nucleated Red Blood Cells % 0 % (-)
--- NOTE | 2024-06-08 07:07 | W.PN.ONC2 ---
Today's Communication / Plan
-
Stable for D/C from my perspective assuming tolerating advanced diet.
Impression
Impression
CLL, recently on [facility]
bilateral adrenal hemorrhage, ?etiology
right colon distention/adynamic ileus
recurrent pleural Effusion (cytology + for CLL), s/p thoracentesis 05/26 100cc pleural fluid drained, chest tube placed 05/27 with TPA/dornase installation
anemia, microcytic multifactorial. Iron studies c/w AOCD/inflammation. hemorrhagic pleural effusion. +B12 deficiency on B12 shots with PCP. Hemolysis unlikely with normal retic and LFts
restrictive lung dz
GERD
HFpEF
MVP
HTN
Plan
Plan
Has consult at [facility] on 06/13 w/ Dr Steph Kahn re: CLL treatment.
Seems to be responding (albeit slowly) to zanubrutinib (currently on hold).
f/u with Adrian following to review whether we resume zanu or switch therapies to Venetoclax +/- obinutuzumab
Subjective/Objective
Chief Complaint
ACS Heme Onc F/U
Subjective
Feels good. Best he's felt in 2 weeks. Dyspnea improved. Wants to go home. Second opinion at [facility] Wednesday 06/[address] Steph Kahn re: CLL treatment
Vital Signs:
Vital Signs
Temp Pulse Resp BP Pulse Ox
97.5 F 92 16 126/76 95
06/08/24 03:32 06/08/24 03:32 06/08/24 03:32 06/08/24 03:32 06/08/24 03:32
Lab Results:
Laboratory Data
WBC 61.4 10^3/uL (4.8-10.8) H* 06/08/24 05:28
Hgb 7.9 g/dL (13.0-18.0) L 06/08/24 05:28
Plt Count 440 10^3/uL (130-400) H 06/08/24 05:28
PT 16.1 Sec (11.4-14.6) H 06/07/24 05:30
INR 1.31 06/07/24 05:30
APTT 41.0 Sec (23.4-35.0) H 06/07/24 05:30
eGFR > 60.00 06/08/24 05:28
Physical Exam
HEENT: No Jaundice
Cardiology: Normal Sinus Rhythm, S1 and S2
Pulmonary: Other (slight decreased BS left base 1/[address] way up)
GI: Soft; No Distended
Extremities: No C/C/E
--- NOTE | 2024-06-08 09:01 | PTOTSP ---
Speech Therapy Assessment
No overt signs of aspiration with thin liquid intake. Unable to assess solids as patient is on clear liquid diet. Do not anticipate oral/pharyngeal dysphagia to solids given results of oral motor assessment and patient interview.
Recommend
1. Continue thin liquids as part of clear liquid diet.
2. Will assess solids once cleared by colorectal surgery.
3. Meds as tolerated
4. Reflux precautions.
[2024-06-08] MEDS: TOPROL XL 25 MG PO ×2 (09:02→20:56)
[2024-06-08] MEDS: CYANOCOBALAMIN 1000 MCG IM (09:02)
[2024-06-08] MEDS: CORTEF 20 MG PO (09:02)
[2024-06-08] MEDS: FOLVITE 1 MG PO (09:03)
[2024-06-08] MEDS: VITAMIN B1 100 MG PO (09:03)
[2024-06-08] MEDS: FLEXERIL 5 MG PO (09:03)
[2024-06-08] MEDS: METAMUCIL, KONSYL 1 PACKET PO (09:03)
[2024-06-08] MEDS: LIDOCAINE 4% PATCH TOPICAL ×2 (09:07→09:08)
--- NOTE | 2024-06-08 11:17 | W.PN.CRS1 ---
Today's Communication / Plan
-
continue clears
await abd xray read
Assessment/Plan
-
Right colonic distention most likely due to adynamic ileus, secondary to a malignant left pleural effusion and recent adrenal hemorrhage. The CT scan does not support a diagnosis of a volvulus.
Plan:
- Continue clears
- Await abdominal xray read
- Recommend GI consult
- Continue fiber. Okay for stool softeners if needed.
- No plans for OR at this time.
Subjective Data
Subjective Data
Date of Service: June 08, 2024
Patient states he vomited yesterday after drinking the magnesium citrate. He has had a lot of flatus but has not had a bowel movement. He is not nauseous right now. He feels less distended and his abdominal pain has improved.
Objective Data
-
Vital Signs
Temp Pulse Resp BP Pulse Ox
97.7 F 89 18 126/79 96
06/08/24 07:33 06/08/24 07:33 06/08/24 07:33 06/08/24 07:33 06/08/24 07:33
Intake & Output
06/07/24 06/08/24 06/09/24
06:59 06:59 06:59
Intake Total 1630 / 1630 1920 / 1920
Output Total 1150 / 1150 2400 / 2400
Balance 480 / 480 -480 / -480
Intake:
Oral fluids 540 / 540 660 / 660
IV fluids (Total) 1260 / 1260
Nss 1,000 ml @ 70 mls/hr IV . 420 / 420
[id number] Rx#:[id number]
IV piggybacks 840 / 840
Blood Product Amount Infused ( 250 / 250
mL)
Packed Rbc Leukoreduced Unit 250 / 250
[id number]
Output:
Urine, Voided 1150 / 1150 2400 / 2400
Lab Results
06/08/24 05:28
06/08/24 05:28
Physical Exam
-
General: AOx3
Abdomen: Soft, Distended (mild (improved)) and Non Tender
Skin: Warm and Dry
--- NOTE | 2024-06-08 12:12 | W.PN.HOSP.TC ---
Today's Communication/Plan
-
GI eval
po hydrocortisone
dc iv steroids
oob/ambulate
Assessment / Plan
Assessment / Plan
#Bilateral Acute Adrenal Hemorrhage
-Awaiting ACTH, Renin, and Aldosterone results.
-Cortisol at 12.8.
-unclear etiology (sever leukocytosis, chemotherapy drugs) ?
-d/w with endocrinology and started on high dose Hydrocortisone 50mg q6h and switched to po now.
- d/w with Dr. Turner today-BP has remained stable. Recommends 20mg/10mg po regimen.
-Not on DOAC.
-Trend Hgb. Transfuse prn.
-d/w with IRAD-not a candidate for embolization as risk outweigh's benefit and recommend conservative management.
-will need to f/u with wave solder offbearer as OP.
#Atelectasis secondary to pleural effusion
-Provided incentive spirometer for potential atelectasis in LLL
-OOB/ambulate.
#Adynamic lleus
-Limit narcotics
-Clears started per CRS
-bowel regimen. OOB/ambulate/PT/OT
-AXR today Interval decrease in gaseous distention of the colon with increased air within the rectum.
-CRS following and recs GI eval.
#Fever on 06/05/24
-No cough. No dysuria. No diarrhea
-?cancer fever.
-If spikes fever again-check UA, Blood culture.
-CXR with There is moderate left pleural effusion, slightly increased in size when compared with prior study and associated with pneumonia versus atelectasis in the lower left lung
-US chest on 06/03 not enough fluid for thoracentesis. May need repeat US if with sob or requiring oxygen.
-IS encourage
-Le doppler negative.
#Malignant loculated left pleural effusion
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
-Status post left thoracentesis on 02/19/2024 with 1300 mL drained, 05/26 with 100 mL drained from left pleura
-S/P recent left chest tube; S/p pleural lysis with tPA/dornase on 05/29/2024, last hospital stay
-Pulmonology evaluated again this time, no indication for repeat thoracentesis
-X-ray this morning is showing stable left pleural effusion compared with yesterday's imaging
-CT surgery evaluated, not a candidate for VATS. Cytology negative for malignancy.
-Plan for short coruse of abx Unasyn 5d total.
-Repeat CT abd/pelvis finding of MODERATE-SIZED MALIGNANT LEFT HYDROPNEUMOTHORAX (mostly complex fluid) surrounded by thick pleural thickening suggesting pleural malignancy.
-Per pulmonary, not increase in size of pleural effusion.
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
-trend for now. Improving.
-could be due to AI? Na improving.
#Microcytic Anemia
-Multifactorial with CLL history and component of iron deficiency anemia
-Iron saturation in outpatient labs was 5%; was recently started on oral iron on 05/30
-Start IV Ferrlecit for iron deficiency,
-s/p 1u of PRBC so far. Hgb 7.9
-Will trend daily CBC, supportive transfusions as needed
#Chronic lymphocytic leukemia
-Follows with Dr. Rhodes, previously on Zanubrutinib though stopped prior to arrival
-Patient states that Zanubrutinib has risk of hemorrhage and he associates with hemothorax
-Has significantly elevated WBC in the range of 60-80K, at baseline
-Oncology planning to transition to obinutuzumab/venetoclax regimen
#Vitamin B12 deficiency
-Status post IM repletion on last hospital stay
-Remains on oral B12 regimen
#Hypothyroidism
-Continue synthroid 125 mcg
#GERD
#Hiatal hernia
-No known history of erosive disease or Ordonez's esophagus
-Home regimen includes omeprazole 20 mg nightly
-Added on famotidine twice daily as needed
#BPH
-Continue Flomax
DVT prophylaxis: scds
Diet: Regular
CODE STATUS: Full code
Anticipated Discharge: > 48 hours
Subjective/Interval History
-
Date of Service: June 08, 2024
passing flatulence but no bm x 2 days
Objective Data
-
Labs:
Laboratory Results
06/08/24
05:28
WBC 61.4 H*
Hgb 7.9 L
Hct 25.6 L
Plt Count 440 H
Sodium 133 L
Potassium 4.8
Chloride 97 L
Carbon Dioxide 26
BUN 10
Creatinine 0.6 L
Glucose 104 H
Calcium 9.1
Total Bilirubin 0.4
AST 37
ALT 33
Alkaline Phosphatase 108
Vital Signs:
Vital Signs
Temp Pulse Resp BP Pulse Ox
97.7 F 109 20 140/75 95
06/08/24 11:34 06/08/24 11:34 06/08/24 11:34 06/08/24 11:34 06/08/24 11:34
I&O
06/07/24 06/08/24 06/09/24
06:59 06:59 06:59
Intake Total 1630 / 1630 1920 / 1920
Output Total 1150 / 1150 2400 / 2400
Balance 480 / 480 -480 / -480
Physical Exam
-
General: No Apparent Distress, Comfortable and Other (Thin male); Negative Pain
HEENT: Normocephalic, Atraumatic, Moist Mucous Membranes and Anicteric
Respiratory: Non Labored Respirations and Decreased Breath Sounds (Left base); Negative Wheezes, Rales or Rhonchi
Cardiac: Regular Rhythm, S1/S2 and Gallop; Negative Murmur
GI: Soft, Nontender, Normal Bowel Sounds and Distended (improving)
Musculoskeletal: No Clubbing, No Cyanosis and No Edema
Skin: Warm, Dry and Normal Turgor; Negative Rash
Neuro: Awake, AO x 3, Nonfocal/Grossly Intact and Central Nerve's Intact
Psych: Calm
Data Reviewed
-
Total Time Spent with Patient (in minutes): 56
--- NOTE | 2024-06-08 13:53 | CON.GI ---
Consultation
-
Date/Time Consultation Requested: 06/08/2024, 12:09
Date/Time Consultation Performed: 06/08/2024, 1:50
Requesting Provider: Dr. Shiva Gomez
Performing Provider: Dr. Cristi Albarran
Reason for Consultation: Ileus
Medical History
Chief Complaint / HPI
Chief Complaint: Abdominal distension, ileus
History of Present Illness:
Mr. Peterson is a 83 y.o male with past medical history of CLL and recent admission for recurrent malignant L pleural effusion (requiring chest tube and lytic therapy), colon polyps, and GERD who presented to the ED on 06/03/24 for abdominal
discomfort. Found to have significant colonic distension initially concerning for volvulus and felt to represent an ongoing ileus. GI has been consulted for further evaluation and management.
Patient describes worsening constipation over the past few weeks and pressure-like sensation around his abdomen. Takes Metamucil three times a day which usually keeps his bowel habits fairly regular and soft. However, notes he was started on muscle
relaxants and prior pain medicine during his last hospitalization which seemed to coincide with his symptoms. Denies any prior significant constipation or bowel surgery in the past, however does note a prior inguinal hernia repair. Additionally, his
last colonoscopy (for surveillance of advanced adenoma, TA > 10 mm) was back on 10/23/[address] Patel with two small sessile polyps (path with SSLs), diverticulosis in the left colon and internal hemorrhoids. States he continued to have worsening
symptoms with passage of small volume stools prompting him to come to the ED for further evaluation.
Initial CT Abd/pelvis on 06/03 was unrevealing, only noting a small L pleural effusion without any bowel wall dilatation or obstruction. KUB on 06/06 revealed a probable sigmoid volvulus with concern for a possible cecal volvulus. Repeat CT Abd/pelvis
on 06/06 revealed severe air distension of the cecum (measuring 7.7 x 10.0 cm) and moderate distention of the ascending colon with air and moderate to large fecal material suggesting constipation and an adynamic colonic ileus along with severe
diverticulosis in the sigmoid colon. Additionally, found to have new bilateral adrenal masses 2/2 acute bilateral adrenal hemorrhage and moderately-sized malignant L hydropneumothorax. Colorectal surgery was consulted for further management and
advised conservative management and transferred patient to ICU on 06/07. He has been given biscodyl suppositories, miralax and magnesium citrate with some relief with one bowel movement on 06/06. Repeat KUB today on 06/08 revealed improvement with
interval decrease gaseous distention and increased air in rectum.
Upon reviewing his MAR, received Hydromorphone 0.5 mg on 06/02, 06/03, and 06/04 but no recent opioids over the past 3-4 days. He reports feeling much improved and passing significant amount of flatus without any further nausea or vomiting. Last BM two
days ago, but only small passage of loose brown stool on 06/06. He appears comfortable and very eager to go home.
Past Medical History
Past Medical History: Other (Asthma, Cancer (CLL), GERD, HTN, Hypercholesterolemia, Valvular Disease (MVP) and Other (malignant left pleural effusion))
Past Surgical History: Other (Hernia Repair (inguinal), Orthopedic (bilateral hip replacements; left shoulder replacement) and Other (hemorrhoidectomy))
Social History
Tobacco: Non-Smoker
Alcohol: Occasional
Drug: None
Family History
Family History: Reviewed & Not Pertinent
Allergies / Home Medications
Allergy/AdvReac Type Severity Reaction Status Date / Time
Sulfa (Sulfonamide Allergy Swelling Verified 06/03/24 01:59
Antibiotics)
sulfamethoxazole Allergy Swelling Verified 06/03/24 01:59
�Medication �Instructions �Recorded
atorvastatin 10 mg tablet 10 mg PO HS High Cholesterol 05/27/21
levothyroxine 125 mcg tablet 125 mcg PO HS Thyroid 05/27/21
omeprazole 20 mg delayed 20 mg PO HS Gastrointestinal Issue 05/27/21
release,disintegrating tablet
tamsulosin 0.4 mg capsule 0.4 mg PO HS Urinary Issue 05/27/21
metoprolol tartrate 25 mg tablet 25 mg PO HS Blood Pressure 05/27/24
psyllium husk 0.4 gram capsule 0.4 g PO HSPRN PRN constipation 05/27/24
(Metamucil)
vitamins A,C,A-hjnb-yzvwyn 4,296 1 cap PO HS Supplement 05/27/24
mcg-226 mg-90 mg capsule
(PreserVision AREDS)
diphenhydramine 25 1 tab PO HS PRN sleep 05/28/24
mg-acetaminophen 500 mg tablet
(Tylenol PM Extra Strength)
cyanocobalamin (vitamin B-12) 500 500 mcg PO DAILY Supplement 1 06/01/24
mcg tablet month #30 tabs
ferrous sulfate 325 mg (65 mg 325 mg PO Q OTHER DAY Supplement 1 06/01/24
iron) tablet (FeroSul) month #15 tabs
Review of Systems
-
All other systems: A 12 pt ROS was Negative except as stated above in HPI
Vital Signs
Temp Pulse Resp BP Pulse Ox
97.7 F 109 20 140/75 95
06/08/24 11:34 06/08/24 11:34 06/08/24 11:34 06/08/24 11:34 06/08/24 11:34
Physical Exam
Exam
General: No Apparent Distress and Comfortable
HEENT: Moist Mucous Membranes
Respiratory: Non Labored Respirations and Other
Cardiac: S1/S2
GI: Soft, Non Tender, Distended (Mild distension) and Other (Hypoactive bowel sounds)
Skin: Warm
Neuro: AO x 3 and Nonfocal/Grossly Intact
Psych: Calm
Results
WBC 61.4 10^3/uL (4.8-10.8) H* 06/08/24 05:28
Hgb 7.9 g/dL (13.0-18.0) L 06/08/24 05:28
Hct 25.6 % (39.0-52.0) L 06/08/24 05:28
MCV 78.0 fL (80.0-94.0) L 06/08/24 05:28
Plt Count 440 10^3/uL (130-400) H 06/08/24 05:28
Absolute Neuts (auto) 7.7 10^3/uL (1.4-6.5) H 06/08/24 05:28
PT 16.1 Sec (11.4-14.6) H 06/07/24 05:30
INR 1.31 06/07/24 05:30
APTT 41.0 Sec (23.4-35.0) H 06/07/24 05:30
Sodium 133 mmol/L (135-145) L 06/08/24 05:28
Potassium 4.8 mmol/L (3.5-5.1) 06/08/24 05:28
Chloride 97 mmol/L (98-107) L 06/08/24 05:28
Carbon Dioxide 26 mmol/L (22-30) 06/08/24 05:28
BUN 10 mg/dl (9-20) 06/08/24 05:28
Creatinine 0.6 mg/dL (0.7-1.3) L 06/08/24 05:28
Calcium 9.1 mg/dl (8.4-10.2) 06/08/24 05:28
Total Bilirubin 0.4 mg/dl (0.2-1.3) 06/08/24 05:28
AST 37 U/L (17-59) 06/08/24 05:28
ALT 33 U/L (0-50) 06/08/24 05:28
Alkaline Phosphatase 108 U/L (38-126) 06/08/24 05:28
Lipase 33 U/L (23-300) 06/03/24 02:11
Diagnostic Image Results:
CT Abd/pelvis 06/03/24: Small left pleural effusion with some pleural thickening and bubbles of air in the left pleural space. Correlation with patient history for recent procedure such as thoracentesis. Otherwise, consider infection. Limited
evaluation of intestinal tract without oral contrast and with marked beam hardening artifact from bilateral hip arthroplasties, without intestinal obstruction or free air.
KUB 06/06/24: Probable sigmoid volvulus.
The possibility that this is cecal volvulus is less likely but cannot exclude
CT of the abdomen and pelvis is recommended.
CT Abd/pelvis 06/06/24:
1. New bilateral adrenal masses most consistent with ACUTE BILATERAL ADRENAL HEMORRHAGE given rapid development since 06/03/2024.
2. Severe air distention of the cecum and moderate distention of the ascending colon with air and fecal material suggesting constipation and an ADYNAMIC COLONIC ILEUS.
3. Severe diverticulosis in the sigmoid colon.
4. Small volume pelvic ascites.
5. Mild splenomegaly containing small calcified granulomas.
6. Small hiatal hernia.
7. MODERATE-SIZED MALIGNANT LEFT HYDROPNEUMOTHORAX (mostly complex fluid) surrounded by thick pleural thickening suggesting pleural malignancy.
8. Large dense airspace consolidations in the left lower and middle lobes.
9. Severe calcific atherosclerotic plaque in the coronary arteries and aorta.
10. Severe discogenic degenerative disease in the lower lumbar spine.
KUB 06/08/24: Interval decrease in gaseous distention of the colon with increased air within the rectum. Stable left pleural effusion and atelectasis.
Last Colonoscopy: 10/23/[address] Patel with two small sessile polyps (path with SSLs), diverticulosis in the left colon and internal hemorrhoids. No repeat given patient's age
Assessment / Plan
-
Mr. Peterson is a 83 y.o male with past medical history of CLL and recent admission for recurrent malignant L pleural effusion (requiring chest tube and lytic therapy), colon polyps, and GERD who presented to the ED on 06/03/24 for abdominal
discomfort. Found to have significant colonic distension initially concerning for volvulus and felt to represent an ongoing ileus. GI has been consulted for further evaluation and management.
#Adynamic Ileus w/out Obstruction- Improving
#Increased Stool [place] on Imaging
#Chronic Constipation w/ Overflow Diarrhea
#Acute Bilateral Adrenal Hemorrhage
#LLL Loculated Hydropneumothorax (s/p prior chest tube)
Impression: Patient presenting from home with abdominal pain and worsening constipation with overflow diarrhea found to have an ileus along with new, acute bilateral adrenal hemorrhage and LLL loculate hydropneumothorax. Suspect ileus in setting of
these new findings along with prior opioids, recent hospitalization earlier this month, and chronic constipation further contributing to his slow motility. Fortunately, he is improving with ongoing bowel function and passing flatus with passage of
small stool on 06/06. Repeat KUB this AM on 06/08 with improvement and less distension in R colon, although still with significant stool burden. Recommend ongoing conservative measures as below along with rectal enemas to further help clean out harder
stool distally. Did not previously tolerate a mini bowel purge with mag citrate. Would increase his laxatives while starting enemas. Otherwise, no indication for colonic decompression at this time given his improvement.
Recommendations:
- Continue CLD
- Start Miralax 17 mg BiD and senna qhs
- Start Rectal enemas, will order one now and one later this evening
- Continue daily enemas into tomorrow. Would defer placement of rectal tubes given improved gaseous distension
- Could consider Methylnaltrexone however will defer given his improvement and > 4 days since he last received opioids
- No indication for colonic decompression at this time
- Encouraged frequent ambulation, OOB as tolerated
- Avoidance of all opioids
- CRS following, appreciate recs
Discussed with primary, internal medicine team.
GI team will continue to follow. Please call back with any questions or concerns.
Data Reviewed
-
Radiology: Image Personally Visualized and interpreted and Report Reviewed by me
CT Scan: Image Personally Visualized and interpreted and Report Reviewed by me
Old Records: Reviewed
-
-
Thank you for consultation and allowing me to participate in the patient's care. Please call the waste elimination GI physician during the after hours with any questions or concerns.
--- NOTE | 2024-06-08 14:24 | PN.CDI ---
CDI
- -
CDI:
Physician Documentation Request
Admit Date: 06/03/24 06:32
Dear Doctor Patricia,
Please review the following and provide your response in the progress notes.
Pt admitted with bilateral acute adrenal hemorrhage.
Clinical Indicators:
The diagnosis of Aspiration Pneumonia was documented on 06/07/24, but is not consistently noted in subsequent documentation.
06/07 Maintenance Associate note: 'Impression: # Aspiration pneumonia involving L-lung
Pt was started on Abx on evening of 06/06/[address] abd/pelvis was done given large airspace consolidation in the left lower lobe + lingula with possible pneumonia. Although patient does not have symptoms consistent with pneumonia, the imaging
is concerning and his WBC count was rising last night (he had not received any steroids yet either at the time of blood draw last night).
- Will change Zosyn to Unasyn and check sputum Cx, and legionella/Strep PNA urine antigens
- Plan for 5 days ABx.'
Please clarify the following:
Aspiration pneumonia was present on admission and is now resolved.
Aspiration pneumonia was present on admission and is still being monitored, evaluated or treated
Aspiration pneumonia was ruled out
Aspiration pneumonia is still a likely, suspected, probable diagnosis
Other
Use of terms such as suspected, likely, concern for, or probable (associated with a specific diagnosis that is being evaluated, monitored, or treated as if it exists) are acceptable and can be coded in the inpatient setting, when documented at the
time of discharge.
Thank you,
Rocio Deleon RN, BSN
CDI Specialist
Available via [employer]
Please use your independent medical judgment in providing your response.
[2024-06-08] MEDS: FLEET MINERAL OIL ENEMA 133 ML RECTAL ×2 (15:54→20:55)
[2024-06-08] MEDS: CORTEF 10 MG PO (18:20)
[2024-06-08] MEDS: MIRALAX 17 GRAMS PO (20:55)
[2024-06-08] MEDS: PROTONIX 40 MG PO (20:56)
[2024-06-08] MEDS: FLOMAX 0.4 MG PO (20:56)
[2024-06-08] MEDS: SYNTHROID 125 MCG PO (20:56)
[2024-06-09 03:15] VITALS: BP 125/74
[2024-06-09] MEDS: UNASYN IV ×2 (03:16→08:50)
[2024-06-09 05:21] VITALS: BMI 21.4
[2024-06-09 06:29] LABS: Hematocrit 24.1 % (39.0-52.0); Hemoglobin 7.4 g/dL (13.0-18.0); Mean Corp Hgb Conc. 30.7 g/dL (33.0-37.0); Mean Corpuscular Volume 78.2 fL (80.0-94.0); Mean Platelet Volume 9.9 fL (7.4-10.4); Platelet Count 447 10^3/uL (130-400); Red Blood Cell Count 3.08 10^6/uL (4.70-6.10); Red Cell Dist. Width 17.2 % (11.5-14.5); White Blood Cell Count 68.8 10^3/uL (4.8-10.8)
--- NOTE | 2024-06-09 06:36 | PTCARENOTE ---
BASILIA Quiroz notified regarding critical WBC value. Plan of care ongoing
[2024-06-09 06:41] LABS: % Basophils 0.1 % (0-2); % Eosinophils 0.2 % (0-6); % Immature Granulocytes 0.4 % (0-0.5); % Lymphocytes 86.5 % (20.5-51.1); % Monocytes 1.3 % (1.7-9.3); % Neutrophils 11.5 % (42.2-75.2); Absolute Basophils 0.1 10^3/uL (0-0.2); Absolute Eosinophils 0.1 10^3/uL (0-0.7); Absolute Immature Granulocytes 0.3 10^3/uL (0-0.05); Absolute Lymphocytes 59.5 10^3/uL (1.2-3.4); Absolute Monocytes 0.9 10^3/uL (0.1-0.6); Nucleated Red Blood Cells % 0 % (-)
[2024-06-09 06:44] LABS: ALT (SGPT) 27 U/L (0-50); AST (SGOT) 28 U/L (17-59); Albumin 2.5 g/dl (3.5-5.0); Alkaline Phosphatase 102 U/L (38-126); Blood Urea Nitrogen 9 mg/dl (9-20); Carbon Dioxide 31 mmol/L (22-30); Chloride 97 mmol/L (98-107); Estimated Creatinine Clearance 92 ml/min; Glucose 80 mg/dl (70-99); Potassium 3.8 mmol/L (3.5-5.1); Sodium 132 mmol/L (135-145); Total Bilirubin 0.3 mg/dl (0.2-1.3); Total Protein 4.7 g/dl (6.3-8.2); eGFR > 60.00
[2024-06-09 07:39] VITALS: BP 131/68
[2024-06-09 07:47] LABS: Cardiolipin IgA Antibody <10 APL (<=11); Cardiolipin IgM Antibody <10 MPL (<=12); Cardiolipin Igg Antibody <10 GPL (<=14)
[2024-06-09] MEDS: CORTEF 20 MG PO (08:47)
[2024-06-09] MEDS: METAMUCIL, KONSYL 1 PACKET PO (08:47)
[2024-06-09] MEDS: VITAMIN B1 100 MG PO (08:47)
[2024-06-09] MEDS: MIRALAX 17 GRAMS PO (08:47)
[2024-06-09] MEDS: TOPROL XL 25 MG PO (08:48)
[2024-06-09] MEDS: FOLVITE 1 MG PO (08:48)
[2024-06-09] MEDS: CYANOCOBALAMIN 1000 MCG IM (08:48)
[2024-06-09] MEDS: LIDOCAINE 4% PATCH TOPICAL ×2 (08:49)
--- NOTE | 2024-06-09 09:12 | W.PN.GI.CBS2 ---
Addendum entered and electronically signed by Tori Wang MD 06/09/24 15:27:
I saw and examined the patient.
The FOREST OFFICER or PA's note was reviewed and I agree with the note.
Comment:
Pt feels better now. Bloating but not distended
abd: soft nontender
impression
bloating
s/p ileus
plan:
regular bowel regimen, ileus resolved
anemia non GI
will sign off call with questions
Addendum entered and electronically signed by BASILIA Rolle 06/09/24 09:42:
cont to trend hbg with slow drop 8.1-8.0-7.9-7.[address] if continued from with concern for Acute Bilateral Adrenal Hemorrhage
Original Note:
Today's Communication / Plan
-
still with bloating feeling
for further enema today
cont miralax BID , metamucil and add senna at HS
if continued symptoms consider repeat X ray for stool burden after enema and further laxatives
pt does not feel can advance diet but tolerating liquids-- will add supplement BID
- Could consider Methylnaltrexone however will defer given his improvement and > 4 days since he last received opioids
- No indication for colonic decompression at this time based on 06/08 imaging
- Encouraged frequent ambulation, OOB as tolerated
- Avoidance of all opioids
- CRS following, appreciate recs
Assessment / Plan
-
Mr. Peterson is a 83 y.o male with past medical history of CLL and recent admission for recurrent malignant L pleural effusion (requiring chest tube and lytic therapy), colon polyps, and GERD who presented to the ED on 06/03/24 for abdominal
discomfort. Found to have significant colonic distension initially concerning for volvulus and felt to represent an ongoing ileus. GI has been consulted for further evaluation and management.
06/08 abd X ray with Interval decrease in gaseous distention of the colon with increased air within the rectum.Stable left pleural effusion and atelectasis.
#Adynamic Ileus w/out Obstruction- slow improvement
#Increased Stool [place] on Imaging
#Chronic Constipation w/ Overflow Diarrhea
#Acute Bilateral Adrenal Hemorrhage
#LLL Loculated Hydropneumothorax (s/p prior chest tube)
Impression: Patient presenting from home with abdominal pain and worsening constipation with overflow diarrhea found to have an ileus along with new, acute bilateral adrenal hemorrhage and LLL loculate hydropneumothorax. Suspect ileus in setting of
these new findings along with prior opioids, recent hospitalization earlier this month, and chronic constipation further contributing to his slow motility. Repeat KUB this AM on 06/08 with improvement and less distension in R colon, although still
with significant stool burden.
s/p serial enemas, biscodyl(now off) attempted mag citrate (with vomiting with use) miralax BID, metamucil
Recommendations:
still with bloating feeling
for further enema today
cont miralax BID , metamucil and add senna at HS
if continued symptoms consider repeat X ray for stool burden after enema and further laxatives
pt does not feel can advance diet but tolerating liquids-- will add supplement BID
- Could consider Methylnaltrexone however will defer given his improvement and > 4 days since he last received opioids
- No indication for colonic decompression at this time based on 06/08 imaging
- Encouraged frequent ambulation, OOB as tolerated
- Avoidance of all opioids
- CRS following, appreciate recs
Subjective
Subjective
Date of Service: June 09, 2024
06/08 brown stool on full liquid diet
Objective
Data Reviewed
Laboratory Data:
Laboratory Results
06/09/24 05:51
06/09/24 05:51
Laboratory Results
PT 16.1 Sec (11.4-14.6) H 06/07/24 05:30
INR 1.31 06/07/24 05:30
APTT 41.0 Sec (23.4-35.0) H 06/07/24 05:30
Phosphorus 3.8 mg/dl (2.5-4.5) 06/08/24 05:28
Magnesium 2.5 mg/dl (1.6-2.3) H 06/08/24 05:28
Total Bilirubin 0.3 mg/dl (0.2-1.3) 06/09/24 05:51
AST 28 U/L (17-59) 06/09/24 05:51
ALT 27 U/L (0-50) 06/09/24 05:51
Alkaline Phosphatase 102 U/L (38-126) 06/09/24 05:51
Lipase 33 U/L (23-300) 06/03/24 02:11
Vital Signs and I&O:
Vital Signs
Temp Pulse Resp BP Pulse Ox
97.7 F 83 16 131/68 97
06/09/24 07:39 06/09/24 08:48 06/09/24 07:39 06/09/24 08:48 06/09/24 07:39
I&O
06/08/24 06/09/24 06/10/24
06:59 06:59 06:59
Intake Total 1920 / 1920 1360 / 1360
Output Total 2400 / 2400 775 / 775
Balance -480 / -480 585 / 585
Physical Exam
Physical Exam
HEENT: Anicteric and Moist mucous membranes
Cardiology: Normal Sinus Rhythm
Pulmonary: Clear
GI: Soft, Distended (minimal ) and Non Tender
Extremities: No Edema
Neuro: Non Focal
[2024-06-09] MEDS: FLEET MINERAL OIL ENEMA 133 ML RECTAL (10:07)
--- NOTE | 2024-06-09 11:38 | W.PN.HOSP.TC ---
Addendum entered and electronically signed by Shiva Gomez MD 06/09/24 15:01:
Discussed case with gastroenterology. By gastroenterology patient with significant improvement abdominal exam. Tolerating diet. Patient can be discharged home. Patient had a large bowel movement earlier today. Diet advanced. Discussed with
patient as he is insisting on going home. Patient is able to follow-up with primary doctor oncology for repeat CBC.
More than 30 minutes spent in discharge including
Final examination of the patient
Summarizing hospital stay
Instructions for continuing care to all relevant caregivers
Preparation of discharge records, prescriptions, and referral forms
Total time spent (in minutes): 50
Addendum entered and electronically signed by Shiva Gomez MD 06/09/24 14:25:
Fevers but noted likely secondary to cancer fever versus aspiration pneumonia
Original Note:
Today's Communication/Plan
-
trend hgb daily
bowel regimen-enema/senna/miralax
OOB
Assessment / Plan
Assessment / Plan
#Bilateral Acute Adrenal Hemorrhage
-Awaiting ACTH, Renin, and Aldosterone results.
-Cortisol at 12.8.
-unclear etiology (sever leukocytosis, chemotherapy drugs) ?
-d/w with endocrinology and started on high dose Hydrocortisone 50mg q6h and switched to po now.
- d/w with Dr. Turner -BP has remained stable. Recommends Hydrocortisone 20mg/10mg po regimen.
-Not on DOAC.
-Trend Hgb. Transfuse prn.
-d/w with IRAD-not a candidate for embolization as risk outweigh's benefit and recommend conservative management.
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
#Adynamic lleus
-on Fulls.
-bowel regimen. OOB/ambulate/PT/OT
-AXR 06/08- Interval decrease in gaseous distention of the colon with increased air within the rectum.
-Started on Enema daily/Miralax BID and senna.
-Had bm yesterday-none today so sfar
-CRS following and recs GI eval.
#Fever on 06/05/24
-No cough. No dysuria. No diarrhea
-?cancer fever.
-If spikes fever again-check UA, Blood culture.
-CXR with There is moderate left pleural effusion, slightly increased in size when compared with prior study and associated with pneumonia versus atelectasis in the lower left lung
-US chest on 06/03 not enough fluid for thoracentesis. May need repeat US if with sob or requiring oxygen.
-IS encourage
-Le doppler negative.
#Malignant loculated left pleural effusion
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
-Status post left thoracentesis on 02/19/2024 with 1300 mL drained, 05/26 with 100 mL drained from left pleura
-S/P recent left chest tube; S/p pleural lysis with tPA/dornase on 05/29/2024, last hospital stay
-Pulmonology evaluated again this time, no indication for repeat thoracentesis
-X-ray this morning is showing stable left pleural effusion compared with yesterday's imaging
-CT surgery evaluated, not a candidate for VATS. Cytology negative for malignancy.
-Plan for short coruse of abx Unasyn 5d total.
-Repeat CT abd/pelvis finding of MODERATE-SIZED MALIGNANT LEFT HYDROPNEUMOTHORAX (mostly complex fluid) surrounded by thick pleural thickening suggesting pleural malignancy.
-Per pulmonary, not increase in size of pleural effusion.
#Atelectasis secondary to pleural effusion
-Provided incentive spirometer for potential atelectasis in LLL
-OOB/ambulate.
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
-trend for now. Improving.
-could be due to AI? Na improving.
#Microcytic Anemia
-Multifactorial with CLL history and component of iron deficiency anemia
-Iron saturation in outpatient labs was 5%; was recently started on oral iron on 05/30
-Start IV Ferrlecit for iron deficiency,
-s/p 1u of PRBC so far. Hgb mild drop to 7.4 today.
-Will trend daily CBC, supportive transfusions as needed
#Chronic lymphocytic leukemia
-Follows with Dr. Rhodes, previously on Zanubrutinib though stopped prior to arrival
-Patient states that Zanubrutinib has risk of hemorrhage and he associates with hemothorax
-Has significantly elevated WBC in the range of 60-80K, at baseline
-Oncology planning to transition to obinutuzumab/venetoclax regimen
#Vitamin B12 deficiency
-Status post IM repletion on last hospital stay
-Remains on oral B12 regimen
#Hypothyroidism
-Continue synthroid 125 mcg
#GERD
#Hiatal hernia
-No known history of erosive disease or Ordonez's esophagus
-Home regimen includes omeprazole 20 mg nightly
-Added on famotidine twice daily as needed
#BPH
-Continue Flomax
DVT prophylaxis: scds in setting of adrenal hemorrhage noted on CT scan
Diet: Regular
CODE STATUS: Full code
Anticipated Discharge: > 48 hours
Subjective/Interval History
-
Date of Service: June 09, 2024
states of abd bloating
Objective Data
-
Labs:
Laboratory Results
06/09/24
05:51
WBC 68.8 H*
Hgb 7.4 L
Hct 24.1 L
Plt Count 447 H
Sodium 132 L
Potassium 3.8
Chloride 97 L
Carbon Dioxide 31 H
BUN 9
Creatinine 0.6 L
Glucose 80
Calcium 9.0
Total Bilirubin 0.3
AST 28
ALT 27
Alkaline Phosphatase 102
Vital Signs:
Vital Signs
Temp Pulse Resp BP Pulse Ox
97.7 F 83 16 131/68 97
06/09/24 07:39 06/09/24 08:48 06/09/24 07:39 06/09/24 08:48 06/09/24 07:39
I&O
06/08/24 06/09/24 06/10/24
06:59 06:59 06:59
Intake Total 1920 / 1920 1360 / 1360
Output Total 2400 / 2400 775 / 775
Balance -480 / -480 585 / 585
Physical Exam
-
General: No Apparent Distress, Comfortable and Other (Thin male); Negative Pain
HEENT: Normocephalic, Atraumatic, Moist Mucous Membranes and Anicteric
Respiratory: Non Labored Respirations and Decreased Breath Sounds (Left base); Negative Wheezes, Rales or Rhonchi
Cardiac: Regular Rhythm, S1/S2 and Gallop; Negative Murmur
GI: Soft, Nontender, Nondistended and Normal Bowel Sounds
Musculoskeletal: No Clubbing, No Cyanosis and No Edema
Skin: Warm, Dry and Normal Turgor; Negative Rash
Neuro: Awake, AO x 3, Nonfocal/Grossly Intact and Central Nerve's Intact
Psych: Calm
[2024-06-09 12:16] VITALS: BP 118/69
--- NOTE | 2024-06-09 14:15 | W.DCSUMMARY ---
Discharge Summary
Discharge Data
Date of Admission: 06/03/24
Date of Discharge: 06/09/24
-
Pending Results: No
Hospital Course
83-year-old male past medical history of CLL on chemotherapy, Anemia, iron deficiency anemia, B12 deficiency anemia, hypothyroidism, GERD, hard of hernia, BPH, history of malignant pleural effusion history of tobacco abuse in the past who presented
with mid back pain and generalized abdominal pain. Imaging was found which showed slightly worsening atelectasis. Patient was seen by interventional radiology for loculated effusion which was deemed too small for drainage. Patient had significant
abdominal distention and underwent abdominal x-ray with concern for volvulus. Stat CT abdomen pelvis was done which showed severe distention of the cecum and ascending colon suggestive of adynamic colonic ileus. Patient was evaluated by colorectal
surgery and stated not concern for volvulus recommended bowel regimen NPO. CAT scan also showed acute bilateral adrenal hemorrhage and lab work was check for cortisol, ACTH, renin and aldosterone. Cortisol came back normal. Patient was started on
stress dose steroids. Patient hemoglobin down trended and required 1 unit of PRBC. Patient was also followed by oncology and started on B12 supplementation. Gastroenterology was consulted for adynamic ileus. Patient was started on enema and
MiraLAX and senna. Patient with significant improvement and had a bowel movement prior to discharge. Patient without any abdominal distention and was tolerating diet. Patient diet was advanced. There was some suspicion for aspiration
pneumonia/pneumonitis and patient was briefly started on Unasyn which was transitioned to Augmentin on discharge. Patient was insisting on going home and understands with the drop in hemoglobin. Stated he will follow-up with his primary doctor and
oncology for repeat blood work.
Discharge Plan
-
Patient Disposition: Home with Home Care
Discharge Diagnosis/Procedures: Acute bilateral adrenal hemorrhage
Ileus
Anemia status post blood transfusion
Atelectasis
Fevers
Malignant loculated left pleural effusion
Pseudohyponatremia
B12 deficiency
Condition: Fair
Diet: As tolerated
Activity: With assistance and As tolerated
Driving Restrictions: As prior to admission
Blood Work: CBC in 2-3 days via primary doctor or oncology.
Other Services: VN
Referrals:
Joe Oneill I., [Family Provider] - in less than 1 week
Ceasar Rhodes MD [Active] - 08/25/24 10:00 am
Josiah Turner MD [Consulting Staff] - in one week (call to make appt. f/u Renin, Aldosterone and ACTH level)
Prescriptions:
New
polyethylene glycol 3350 [HealthyLax] 17 gram Powder In Packet
17 g PO BID 30 Days Qty: 30 0RF
metoprolol succinate 25 mg Tablet Extended Release 24 Hr
25 mg PO BID 30 Days Qty: 60 0RF
hydrocortisone 10 mg Tablet
20 mg PO DAILY 30 Days Qty: 60 0RF
hydrocortisone 10 mg Tablet
10 mg PO QPM 30 Days Qty: 30 0RF
cyanocobalamin (vitamin B-12) 1,000 mcg tablet, sublingual
1,000 mcg sublingual DAILY Qty: 30 0RF
amoxicillin-pot clavulanate 875-125 mg tablet
1 tab PO Q12H Qty: 6 0RF
sennosides [Senna Laxative] 8.6 mg Tablet
17.2 mg PO HS 30 Days Qty: 60 0RF
Continued
atorvastatin 10 MG tablet
10 mg PO HS
tamsulosin 0.4 MG capsule
0.4 mg PO HS
levothyroxine 125 MCG tablet
125 mcg PO HS
omeprazole 20 MG tablet,disintegrat, delay rel
20 mg PO HS
PreserVision AREDS 4,296 mcg-226 mg-90 mg Capsule
1 cap PO HS
psyllium husk [Metamucil] 0.4 gram Capsule
0.4 g PO HSPRN PRN (Reason: constipation)
diphenhydramine-acetaminophen [Tylenol PM Extra Strength] 25-500 mg Tablet
1 tab PO HS PRN (Reason: sleep)
ferrous sulfate [FeroSul] 325 mg (65 mg iron) Tablet
325 mg PO Q OTHER DAY 30 Days Qty: 15 0RF
Discontinued
metoprolol tartrate 25 mg Tablet
25 mg PO HS
cyanocobalamin (vitamin B-12) 500 mcg tablet
500 mcg PO DAILY 30 Days Qty: 30 0RF
Discharge Date and Time
Print Language: SLOVAK
[2024-06-09 15:17] VITALS: BP 118/69; PULSE 80
--- NOTE | 2024-06-09 15:25 | CM ---
Met with patient at bedside
IMM benefit form signed @ 1520
Plan: Discharge to home today with [facility]; will transport
[2024-06-09 15:34] VITALS: BP 134/60
[2024-06-09 16:35] LABS: Beta-2-Glycoprotein I Ab. IgG <10 SGU (<=20); Beta-2-Glycoprotein I Ab. IgM <10 SMU (<=20)
[2024-06-09 17:51] LABS: Aldosterone, Serum 7.3 ng/dL
[2024-06-10 01:34] LABS: Beta-2-Glycoprotein I Ab. IgA <10 SAU (<=20)
[2024-06-11 02:18] LABS: Phosphatidylserine Ab, IgA 0 APS (0-19); Phosphatidylserine Ab, IgG 0 GPS (0-15); Phosphatidylserine Ab, IgM 0 MPS (0-21)
[2024-06-11 10:14] LABS: Renin Activity Results 1.5 ng/mL/hr
[2024-06-11 21:11] LABS: Adrenocorticotropic Hormone 5.2 pg/mL (7.2-63.3)
== END 2024-06-09 17:24 | disposition home health service (06) | DRG 643 ==
LOC: 3 WEST ACU 06:32
PROVIDERS: Internal Medicine; Internal Medicine Hematology & Oncology; ADMITTING PHYSICIAN Hospitalist; ATTENDING PHYSICIAN Hospitalist; CONSULT PHYSICIAN Internal Medicine Critical Care Medicine; CONSULT PHYSICIAN Internal Medicine Hematology & Oncology; CONSULT PHYSICIAN Surgery; CONSULT PHYSICIAN Thoracic Surgery (Cardiothoracic Vascular Surgery); EMERGENCY PHYSICIAN Student in an Organized Health Care Education/Training Program; FAMILY PHYSICIAN Internal Medicine; OTHER PHYSICIAN Student in an Organized Health Care Education/Training Program
PROC: 30233N1 Transfusion of Nonautologous Red Blood Cells into Peripheral Vein, Percutaneous Approach (ICD-10-PCS; 2024-06-06)
DX: E27.49 Other adrenocortical insufficiency (principal); J69.0 Pneumonitis due to inhalation of food and vomit; C91.10 Chronic lymphocytic leukemia of B-cell type not having achieved remission; K56.0 Paralytic ileus; E87.1 Hypo-osmolality and hyponatremia; J91.0 Malignant pleural effusion; J94.8 Other specified pleural conditions; J98.11 Atelectasis; R18.8 Other ascites; D62 Acute posthemorrhagic anemia; D50.9 Iron deficiency anemia, unspecified; E03.9 Hypothyroidism, unspecified; I10 Essential (primary) hypertension; I34.1 Nonrheumatic mitral (valve) prolapse; J45.991 Cough variant asthma; E87.8 Other disorders of electrolyte and fluid balance, not elsewhere classified; E53.8 Deficiency of other specified B group vitamins; E78.00 Pure hypercholesterolemia, unspecified; I25.10 Atherosclerotic heart disease of native coronary artery without angina pectoris; J98.4 Other disorders of lung; K21.9 Gastro-esophageal reflux disease without esophagitis; K22.70 Barrett's esophagus without dysplasia; K44.9 Diaphragmatic hernia without obstruction or gangrene; K57.30 Diverticulosis of large intestine without perforation or abscess without bleeding; K64.8 Other hemorrhoids; M19.90 Unspecified osteoarthritis, unspecified site; M62.838 Other muscle spasm; N40.0 Benign prostatic hyperplasia without lower urinary tract symptoms; K64.4 Residual hemorrhoidal skin tags; J30.9 Allergic rhinitis, unspecified; R06.09 Other forms of dyspnea; R16.1 Splenomegaly, not elsewhere classified; R73.9 Hyperglycemia, unspecified; Z79.890 Hormone replacement therapy; Z79.899 Other long term (current) drug therapy; Z86.010 Personal history of colon polyps; Z87.891 Personal history of nicotine dependence; Z86.16 Personal history of COVID-19; Z88.2 Allergy status to sulfonamides; Z96.612 Presence of left artificial shoulder joint; Z96.643 Presence of artificial hip joint, bilateral
CPT/HCPCS: 71045; 71046; 74019; 74177; 76604; 80048; 80053; 82024; 82088; 82533; 82962; 83605; 83690; 83735; 84100; 84244; 84484; 85025; 85027; 85045; 85384; 85610; 85730; 86146; 86147; 86148; 86850; 86900; 86901; 86920; 87449; 87899; 92526; 92610; 93005; 93970; 96374; 96375; 96376; 97116; 97163; 97167; 99285; J2916; P9016; Q9967

== ENCOUNTER → 2024-06-15 15:55 | Outpatient (REF) | payer OTHER, SELFPAY | LOC: RAD 15:55 | PROVIDERS: ATTENDING PHYSICIAN Internal Medicine; REFERRING PHYSICIAN Internal Medicine Critical Care Medicine | DX: E27.49 Other adrenocortical insufficiency (principal); J90 Pleural effusion, not elsewhere classified | CPT/HCPCS: 71046 ==

== ENCOUNTER → 2024-07-13 14:45 | Outpatient (REF) | payer OTHER, SELFPAY | LOC: RAD 14:45 | PROVIDERS: ATTENDING PHYSICIAN Internal Medicine Hematology & Oncology; FAMILY PHYSICIAN Internal Medicine | DX: C91.10 Chronic lymphocytic leukemia of B-cell type not having achieved remission (principal); D51.0 Vitamin B12 deficiency anemia due to intrinsic factor deficiency | CPT/HCPCS: 71046 ==